=== PATIENT | female | born 1990 | race Caucasian/White ===

== ENCOUNTER 2022-07-24 14:40 | Emergency (ER) | payer BC, SELFPAY ==
--- NOTE | ~2022-07-24 | CT_ITS ---
EXAMINATION: CT abdomen pelvis w con DATE: 07/24/2022 16:07 INDICATION: Right upper quadrant abdominal pain radiating to back TECHNIQUE: Computed tomography (CT) of the abdomen and pelvis was performed with 100 CC Omnipaque 350 intravenous contrast. Automated exposure control and iterative reconstruction technique were employe d. Exam dose: 322.65 mGy-cm total exam DLP. COMPARISON: None. FINDINGS: Normal heart size. No pericardial or pleural effusion. Small sliding hiatal hernia. The liver, gallbladder, bile ducts, spleen, pancreas, pancreatic duct, and adrenal glands are unremar kable. There are approximately 4 right renal probable cysts measuring up to approximately 1 cm maximal dimen bc. 4.7 mm probable left renal cyst. Approximately 3 mm nonobstructing lower pole right renal calculus and 2 mm and a subtle pinpoint nono bstructing lower pole left renal calculi. No ureteral calculus or hydroureteronephrosis. The urinary bladder is unremarkable. Up to approximately 1.5 cm right ovarian cysts, including a 1.2 cm peripherally enhancing right corpu s luteum cyst. The uterus and adnexal areas are otherwise unremarkable. There is moderate hypoattenua tion fluid in the posterior cul-de-sac which may be due to ovarian cyst rupture/hemorrhage. Normal caliber of the abdominal aorta. No intraperitoneal or retroperitoneal or pelvic mass lesion or adenopathy or ascites. Normal appendix. Mild sigmoid and descending colon diverticulosis; no CT evidence of diverticulitis. No bowel obstruction or intraperitoneal free air. No suspicious osteolytic or osteoblastic lesions. Transitional lumbosacral vertebra. IMPRESSION: Normal appendix Mild colonic diverticulosis; no CT evidence of diverticulitis Mild bilateral nonobstructive nephrolithiasis; no ureteral calculus or hydroureteronephrosis Bilateral renal cysts Right ovarian cysts including peripherally enhancing 1.2 cm right corpus luteum cyst. Mild to moderat e high density fluid in the posterior cul-de-sac, likely due to cyst rupture or hemorrhage Reviewed, dictated and finalized at [facility] Reviewed, dictated and finalized at [facility] IMPRESSION: Normal appendix Mild colonic diverticulosis; no CT evidence of diverticulitis Mild bilateral nonobstructive nephrolithiasis; no ureteral calculus or hydroure teronephrosis Bilateral renal cysts Right ovarian cysts including peripherally enhancing 1.2 cm right corpus luteum cyst. Mild to moderate high density fluid in the posterior cul-de-sac, likely due to cyst rupture or hemorrhage
[2022-07-24 14:47] VITALS: BP 121/77; PULSE 79; RESP 16; TEMP 36.2; O2SAT 100
[2022-07-24 15:24] LABS: Basophils Absolute Auto 0.1 K/mm3 (0.0-0.1); Basophils Percent Auto 0.7 % (0.2-1.2); Eosinophils Absolute Auto 0.1 K/mm3 (0-0.3); Eosinophils Percent Auto 1.2 % (0-4.4); Hematocrit 37.6 % (37.0-47.0); Immature Granulocyte Absolute 0.03 K/mm3 (0.00-0.031); Immature Granulocyte Percent A 0.4 % (0-0.5); Lymphocytes Absolute Auto 2.23 K/mm3 (0.9-3.2); Mean Corpuscular HGB Conc 34.6 g/dl (32-36); Mean Corpuscular Hemoglobin 32.5 pg (26-34); Mean Platelet Volume 10.7 fl (7.4-10.4); Monocytes Absolute Auto 0.4 K/mm3 (0.1-0.6); Monocytes Percent Auto 5.1 % (2.6-8.5); Neutrophils Absolute Auto 4.9 K/mm3 (1.3-6.7); Neutrophils Percent Auto 63.6 % (45.5-73.1); Platelet Count Result 218 k/mm3 (150-375); Red Cell Distribution Width 12.1 % (11.5-14.5); White Blood Count 7.7 K/mm3 (4.5-10.0)
[2022-07-24 15:32] LABS: Alanine Aminotransferase 18 U/L (6-35); Albumin Level 4.5 g/dL (3.5-5.1); Alkaline Phosphatase 57 U/L (38-126); Anion Gap 8 mmol/L (8-16); Aspartate Amino Transferase 19 U/L (14-36); Bilirubin,Total 0.6 mg/dL (0.2-1.3); Blood Urea Nitrogen 14 mg/dL (7-17); Calcium 8.9 mg/dL (8.4-10.2); Carbon Dioxide 19 mmol/L (22-30); Chloride 109 mmol/L (98-107); Estimated CRCL calculation 64 ml/min; Estimated Glomerular Filt Rate > 60; Glucose 82 mg/dL (65-110); Lipase 96 U/L (23-300); Potassium 3.9 mmol/L (3.4-5.0); Sodium 136 mmol/L (137-145)
[2022-07-24 15:34] LABS: Appearance Urine Slightly Cloudy (Clear); Bilirubin Urine Negative (Negative); Blood Urine Negative (Negative); Color Urine Yellow (Yellow); Glucose Urine UA Negative (Negative); Ketones Urine Negative (Negative); Leukocyte Esterase Ur Trace LEU/UL (Negative); Nitrate Urine Negative (Negative); Protein Urine Negative (Negative); Specific Grav Ur 1.025 (1.001-1.035); pH Urine 6.5 (5.0-9.0)
[2022-07-24] MEDS: HYDROmorphone HCL INJ (*CRX) 1 MG/ML SYR IV PUSH (15:37)
[2022-07-24] MEDS: ONDANSETRON INJ 4 MG/2 ML VIAL IV PUSH (15:37)
--- NOTE | 2022-07-24 15:53 | ED.GENADULT ---
HPI - General Adult General Chief complaint: Back Pain/Injury Stated complaint: back pain Time Seen by Provider: 07/24/22 15:18 History of Present Illness HPI narrative: 31-year-old female presents to the emergency room for evaluation of right upper quadrant/right flank pain intermittently for 3 weeks. Patient states a week ago she was seen at an outside emergency room and was told she had multiple nonobstructing kidney stones. Patient continues to experience pain associated with nausea. Denies any dysuria. Denies fevers. Patient states her family has a history of gallbladder disease Related Data Allergies Allergy/AdvReac Type Severity Reaction Status Date / Time codeine AdvReac Itching Verified 07/24/22 15:13 metoclopramide [From Reglan] AdvReac Nausea and Verified 07/24/22 15:13 Vomiting Sulfa (Sulfonamide AdvReac Rash Verified 07/24/22 15:13 Antibiotics) Review of Systems Review of Systems: CONSTITUTIONAL: Denies fever, chills, or sweats. EYES: Denies visual changes, redness, or discharge. ENT: Denies rhinorrhea, congestion, sore throat, or otalgia. CARDIOVASCULAR: Denies chest pain, palpitations, or edema. RESPIRATORY: Denies cough or dyspnea. GASTROINTESTINAL: Reports abdominal pain, nausea GENITOURINARY: Denies dysuria or hematuria. SKIN: Denies rash or itching. MUSCULOSKELETAL: Denies back pain, joint pain, or myalgia. NEUROLOGIC: Denies headache, numbness, dizziness, or weakness. PSYCHIATRIC: Denies anxiety or depression. Exam Narrative: GENERAL: Well-appearing, well-nourished, no physical limitations, and in no acute distress. HEAD: Normocephalic, atraumatic. EYES: Conjunctivae normal, PERRLA and EOMI. CHEST: Clear to auscultation. No respiratory distress. No wheezes rales or rhonchi. HEART: Regular rate and rhythm. No murmur heard. Normal peripheral pulses. ABDOMEN: Soft, RUQ tenderness, nondistended, normal active bowel sounds. BACK: right CVA tenderness; EXTREMITIES: Normal range of motion. No edema. No clubbing or cyanosis SKIN: Warm, dry, no rash. No noted wounds NEURO: No focal deficits. Alert and oriented x3. MAEW. CN's II-XI intact bilaterally, normal gait PSYCH: Cooperative. Normal mood and affect. Course Vital Signs Vital signs: Vital Signs Temperature 36.2 C L 07/24/22 14:47 Pulse Rate 79 07/24/22 14:47 Respiratory Rate 16 07/24/22 14:47 Blood Pressure 121/77 07/24/22 14:47 Pulse Oximetry 100 07/24/22 14:47 Oxygen Delivery Room Air 07/24/22 14:47 Temperature 36.2 C L 07/24/22 14:47 Pulse Rate 79 07/24/22 14:47 Respiratory Rate 16 07/24/22 14:47 Blood Pressure 121/77 07/24/22 14:47 Pulse Oximetry 100 07/24/22 14:47 Oxygen Delivery Room Air 07/24/22 14:47 Medical Decision Making MDM Narrative Medical decision making narrative: 31-year-old female presented to the emergency room complaints of right flank and right upper quadrant pain intermittently for 12 days. Patient has been seen at [place] emergency room 5 days ago for rule out kidney stone, CT was found to be negative. And showed no signs of peritonitis. Lab work was largely unremarkable. Urine showed no signs of infection. CT with contrast shows multiple ovarian cysts, with a concern for a recent rupture of another. This could be the cause of the patient's discomfort. Will have patient follow-up with [employer], and will encourage her to continue taking her anti-inflammatories. Patient is Vital Signs Vital Signs: Vital Signs Temperature 36.2 C L 07/24/22 14:47 Pulse Rate 79 07/24/22 14:47 Respiratory Rate 16 07/24/22 14:47 Blood Pressure 121/77 07/24/22 14:47 Pulse Oximetry 100 07/24/22 14:47 Oxygen Delivery Room Air 07/24/22 14:47 Temperature 36.2 C L 07/24/22 14:47 Pulse Rate 79 07/24/22 14:47 Respiratory Rate 16 07/24/22 14:47 Blood Pressure 121/77 07/24/22 14:47 Pulse Oximetry 100 07/24/22 14:47 Oxygen Delivery Room Air 07/24/22 14
[2022-07-24 15:56] LABS: Bacteria Urine Trace /hpf; Mucus Urine Moderate /lpf; Squamous Epithelial Cell Urine Moderate /hpf (Few)
[2022-07-24 15:59] LABS: Add Urine Microscopic? YES
== END 2022-07-24 17:32 | disposition home or self-care (01) ==
PROVIDERS: Emergency Medicine; Emergency Provider Nurse Practitioner Family
DX: N83.11 Corpus luteum cyst of right ovary (principal); N20.0 Calculus of kidney
CPT/HCPCS: 36415; 74177; 80053; 81001; 81025; 83690; 85025; 87086; 87088; 96374; 96375; 99284; J1170; J2405; Q9967

== ENCOUNTER 2022-10-11 12:13 | Outpatient (CLI) | payer BC, SELFPAY | END 2022-10-11 12:14 | disposition home or self-care (01) | PROVIDERS: PCP Emergency Medicine; Visit Provider Obstetrics & Gynecology | DX: N80.9 Endometriosis, unspecified (principal); Z01.818 Encounter for other preprocedural examination | CPT/HCPCS: 36415; 86850; 86900; 86901 ==

== ENCOUNTER 2022-10-18 00:13 | Day surgery (SDC) | payer BC, SELFPAY ==
--- NOTE | 2022-10-09 09:57 | SUR.PREOP ---
Report to the Outpatient Waiting Room, entrance under the green pavilion located off [facility], at time 0600 on date 10/18/22. Planned Procedure Time: 0730. Time changes happen often and if your time is changed the preop area will call you the afternoon before. - You and your visitor will be asked to self-screen and do not enter if you have any COVID symptoms. - Only one visitor is requested with a max of two and NO children visitors are allowed at this time. - The patient visitor may be requested to leave or wait in car when not with patient due to distancing restrictions. - A mask is optional within the hospital at this time. Patients may have clear liquids (water, carbonated beverages, clear teas, apple juice) until 3 hours prior to surgery with a maximum of 20 ounces. - NO CLEAR LIQUIDS AFTER 0430 - No food from midnight until time of surgery - Infants may have breast milk until 4 hours before surgery, infant formula 6 hours prior to surgery. - Children will be allowed to drink immediately following surgery. If applicable, please bring a bottle or sippy cup to assist with drinking. Juice, water, soda, and popsicles are readily available. For infants on formula, please bring formula the day of surgery. Pacifiers are allowed. Take the following medications with a SIP of water the morning of surgery: TOPIRAMATE, BUPROPION, ALPRAZOLAM, NAPROXEN, ACETAMINOPHEN, ZOFRAN, & HYDROCODONE DO NOT STOP ANY OF YOUR OTHER PRESCRIPTION MEDICATIONS PRIOR TO SURGERY ?EXCEPT THE FOLLOWING Medications to discontinue per physician N/A Date to take last dose N/A Please no make-up, nail indonesian, hairspray, perfume, deodorant, or body powder the day of surgery. No jewelry (including any body piercings) or valuables the day of surgery, leave them at home. Please take a shower or bath the night before, or the morning of, surgery with an antibacterial soap. Wear comfortable, loose fitting clothing. Children are encouraged to wear pajamas. - Jewelry must be removed prior to entering the operating room. Rings and piercings that are not removed may be cut off. - The hospital will not accept responsibility for valuables. - Please leave all valuables, including medications, at home the day of surgery. If you are going home after surgery, a licensed class a regional drivers must drive you home. - NO public transportation without another adult if you receive anesthesia. - We recommend that an adult stay with you for 24 hours following discharge. - We also recommend that you do not drive, make important decision, drink alcoholic beverages, or take any drugs that were not prescribed by your health care provider for at least 24 hours after your discharge time. For Pediatric surgeries, we recommend two adults accompany the child home. Follow any additional instructions given to you from your surgeon. If you or anyone in your household have experienced Covid symptoms in the past week, please notify your surgeon or the nurse liaison at the phone number below for possible testing. Telephone instructions given to YINA GROVES and asked if any additional questions and then verbalized understanding. Patient advised to call surgeon office or pre surgery nurse liaison [phone] if any additional questions.
[2022-10-09 10:11] VITALS: BMI 28.8
[2022-10-18] VITALS (10 sets, daily range): BP systolic 84–117; BP diastolic 53–79; PULSE 60–81; RESP 12–22; TEMP 36.2–36.9; O2SAT 98–100
[2022-10-18] MEDS: ACETAMINOPHEN 500 MG TABLET 1000 MG PO (06:29)
[2022-10-18] MEDS: LACTATED RINGERS 1,000 ML 30 ML IV CONT ×2 (06:40→09:30)
--- NOTE | 2022-10-18 07:10 | P.PNAN_ITS ---
Anes - Initial Pre Proc Eval Procedure: Operation Date: 10/18/22 07:30 Proposed Procedures p Robotic Assisted Hysterectomy with Bilateral Salpingectomy - Twan Carrington MD Date/Time: 10/18/22 07:10 Surgeon: Twan Carrington MD Pre Op Diagnosis: endometriosis of pelvis Patient Data Age: 32 Gender: F Height: 1.52 m Weight: 66 kg Last Vital Signs Temp 97.7 F 10/18/22 06:45 Pulse 78 10/18/22 06:45 Resp 16 10/18/22 06:45 BP 96/60 L 10/18/22 06:45 Pulse Ox 100 10/18/22 06:45 O2 Del Method Room Air 10/18/22 06:45 Allergies Allergy/AdvReac Type Severity Reaction Status Date / Time adhesive Allergy Rash Verified 10/18/22 06:14 codeine Allergy Itching Verified 10/18/22 06:14 metoclopramide [From Reglan] Allergy Nausea and Verified 10/18/22 06:14 Vomiting Sulfa (Sulfonamide Allergy Rash Verified 10/18/22 06:14 Antibiotics) Home Medications Medication Instructions Recorded Confirmed Type acetaminophen 325 mg tablet 650 mg PO ONCE PRN Pain 10/09/22 10/18/22 History alprazolam 1 mg tablet 1 mg BID PRN Anxiety 10/09/22 10/18/22 History bupropion HCl 150 mg tablet,12 hr 150 mg PO BID 10/09/22 10/18/22 History sustained-release naproxen 500 mg tablet 500 mg PO BID PRN Pain 10/09/22 10/18/22 History ondansetron HCl 4 mg tablet 4 mg PO Q6-8H PRN Nausea 10/09/22 10/18/22 History topiramate 100 mg tablet 100 mg PO TID 10/09/22 10/18/22 History Patient hx anesthesia problems: none Family hx anesthesia problems: none Results Review: All pre-operative results and documents have been reviewed as part of the pre- operative evaluation. [facility] Social History Social History Smoking status: Never smoker Living arrangements: with family Spiritual care concerns: No Anes - Eval Final PreProcedure Day of Procedure 10/18/22 07:10 Patient weight: normal Heart: regular rate and rhythm Lungs: clear to auscultation Airway: Mallampati scale class II Neurological: alert and oriented Last oral intake: >/= 8 hours ASA classification: II Emergent: no Anesthetic plan: proceed Anesthesia type and monitoring: general ETT and standard monitoring Results Review: All pre-operative results and documents have been reviewed as part of the pre- operative evaluation. Informed Consent: The patient's anesthetic plan and its attendant risks and benefits were discussed with the patient/family/POA. Questions were solicited and answers provided to the satisfaction of the patient/family/POA.
--- NOTE | 2022-10-18 07:13 | WPDHPUPDATE1 ---
History and Physical Update Update Date/Time: 10/18/22 07:13 History and Physical has been reviewed, including an updated exam of the patient. There are NO changes in the patient's condition. Risks, benefits, and alternatives have been discussed and questions answered. Patient agrees to proceed with procedure.
[2022-10-18] MEDS: ceFAZolin 2 GM/D5W 50 ML 2 GM/50 ML BAG IVPB (07:25)
[2022-10-18] MEDS: fentaNYL CITRATE INJ (*CRX) 100 MCG/2 ML VIAL 25 MCG IV PUSH ×2 (10:22→10:26)
[2022-10-18] MEDS: DEXTROSE 5%/0.45% SOD CHL 1,000 ML 125 ML IV CONT (11:35)
[2022-10-18] MEDS: KETOROLAC 30 MG/ML VIAL (*BKC) IV PUSH (14:40)
[2022-10-18] MEDS: HYDROcodone/acetaminophen (*CRX) 10-325 MG TABLET 1 TAB PO ×2 (17:51→20:20)
--- NOTE | 2022-10-18 19:06 | OBPPTRN ---
1113 Patient transferred to post room #276 via bed. Support person present. Oriented to unit, room, information board, admission packet and security measures. Patient verbalizes understanding.
[2022-10-18] MEDS: IBUPROFEN 600 MG TABLET PO (20:20)
[2022-10-18] MEDS: SIMETHICONE 80 MG TAB.CHEW (20:23)
[2022-10-19] MEDS: HYDROcodone/acetaminophen (*CRX) 10-325 MG TABLET 1 TAB PO ×2 (05:20→08:46)
[2022-10-19] MEDS: IBUPROFEN 600 MG TABLET PO ×2 (05:20→13:03)
[2022-10-19 08:45] VITALS: BP 98/62; PULSE 73; RESP 16; TEMP 36.8; O2SAT 98
[2022-10-19] MEDS: SIMETHICONE 80 MG TAB.CHEW PO (08:49)
--- NOTE | 2022-10-19 12:57 | PM.GYNPNOP ---
[employer] - A/P Postoperative Procedures: Procedures Operation Date: 10/18/22 07:30 Actual Procedure Side Surgeon p Robotic Assisted Hysterectomy with Bilateral Salpingectomy Bilateral Twan Carrington MD Postoperative day: 1 Postoperative status: doing well Postoperative plan: see orders Time Spent With Patient Time: Total time spent is greater than 50% in coordination of care (as documented) at patient's floor/unit and/or counseling patient: Time with patient: less than 15 minutes [employer]- PN:Subj Post-Op Subjective Date/time seen: 10/19/22 12:57 Subjective: patient reports feeling better, patient has no complaints and pain is well controlled Exam Const: General: healthy appearing, comfortable and no acute distress Resp: Auscultation: clear to auscultation bilaterally, no rales, no rhonchi and no wheezes Cardio: Rate: regular rate Heart sounds: no click, no murmurs and no rubs GI: Inspection: non-distended Auscultation: normal bowel sounds Extrem: General: normal to inspection, no pedal edema and no calf tenderness [employer] - PN: Obj Data Vital Signs Vital Signs: Vital Signs - 24 hr 10/18/22 19:18 10/18/22 19:18 10/18/22 20:15 Temperature 98.3 F 98.5 F Pulse Rate 80 81 Respiratory Rate 16 18 Blood Pressure 117/79 97/62 L Pulse Oximetry 100 Oxygen Delivery Room Air 10/19/22 08:45 10/19/22 08:45 Temperature 98.3 F Pulse Rate 73 73 Respiratory Rate 16 16 Blood Pressure 98/62 L Pulse Oximetry 98 98 Oxygen Delivery Room Air Intake/Output Intake/Output: Intake & Output 10/16/22 10/17/22 10/18/22 10/19/22 23:59 23:59 23:59 23:59 Intake Total 3920 400 Output Total 2000 Balance 1920 400 Meds/Results Medications: Active Medications Generic Name Dose Route Start Last Admin Trade Name Freq PRN Reason Stop Dose Admin Acetaminophen 650 mg 10/18/22 11:07 Acetaminophen 325 Mg Tablet PO ONCE PRN Pain Hydrocodone Bitart/Acetaminophen 1 tab 10/18/22 11:07 Hydrocodone/Acetaminophen (*Crx) 5-325 Mg Tablet PO Q3H PRN Pain Rated 5 or Less Hydrocodone Bitart/Acetaminophen 1 tab 10/18/22 11:07 10/19/22 08:46 Hydrocodone/Acetaminophen (*Crx) 10-325 Mg Tablet PO 1 tab Q3H PRN Administration Pain Rated 6 or Greater Alprazolam 1 mg 10/18/22 11:07 Alprazolam (*Crx) 0.5 Mg Tablet BY MOUTH BID PRN Anxiety Bupropion HCl 150 mg 10/18/22 21:00 10/19/22 10:40 Bupropion Hcl Sr (12 Hr) 150 Mg Tab PO Not Given Q12HR MORGAN Ibuprofen 600 mg 10/18/22 11:07 10/19/22 05:20 Ibuprofen 600 Mg Tablet PO 600 mg Q6H PRN Administration Cramping Ketorolac Tromethamine 30 mg 10/18/22 11:07 10/18/22 14:40 Ketorolac 30 Mg/Ml Vial (*Bkc) IV PUSH 10/23/22 11:06 30 mg Q6H PRN Administration Pain Rated 4-6 Naloxone HCl 0.1 mg 10/18/22 11:07 Naloxone Hcl 0.4 Mg/Ml Vial IV PUSH Q2M PRN Respiratory rate less than 10 Ondansetron HCl 4 mg 10/18/22 11:07 Ondansetron Hcl Odt 4 Mg Tablet PO Q6-8H PRN Nausea Ondansetron HCl 4 mg 10/18/22 11:07 Ondansetron Inj 4 Mg/2 Ml Vial IV PUSH Q6H PRN Nausea And Vomiting Simethicone 80 mg 10/18/22 21:45 10/19/22 08:49 Simethicone 80 Mg Tab.Chew PO 80 mg Q2HR PRN Administration Gas Discomfort Topiramate 100 mg 10/18/22 14:00 10/19/22 08:54 Topiramate 100 Mg Tablet PO Not Given Q8HR MORGAN
[2022-10-19] MEDS: HYDROcodone/acetaminophen (*CRX) 5-325 MG TABLET 1 TAB PO (13:03)
--- NOTE | 2022-10-22 21:52 | W.PM.PROC2 ---
Procedure Note - Detailed Date of Procedure 10/22/22 Pre-op Diagnosis endometriosis of pelvis Post-op Diagnosis Same Procedure Performed Robot assisted Total hysterectomy with bilateral salpingectomy. Surgeon Twan Carrington MD Anesthesia General Indications heavy vaginal bleeding, pelvic pain Findings normal-appearing uterus, ovaries, and left tube, right tube was partially resected. Some scarring over the posterior cul-de-sac peritoneum. Description of Procedure This patient was taken to the operating room. She was prepped and draped in the dorsal lithotomy position after induction of general anesthesia. The uterine manipulator and Sawyer cup were placed. This was done with a speculum and tenaculum. The speculum was placed. The cervix was grasped with a tenaculum. The stay sutures were placed at 3 and 9:00 a.m.. The stay sutures of 0 Vicryl were tied to the appropriately Size scope after it was slipped around the cervix.. The tip of the HALEY manipulator was placed in the intrauterine cavity. The cup was slid into place around the cervix and into the fornices. It was locked into place. The sutures were then wrapped around the handle and tied under tension. A 8 mm skin incision was made in the left upper quadrant the abdomen. a 5 mm Visiport trocar was inserted into abdominal cavity and pneumoperitoneum was achieved. A 8 mm supraumbilical incision was made and a 8 mm trocar was inserted into the intrauterine cavity under direct visualization of the scope. an 8 mm incision was made in the right upper quadrant of the abdomen and an 8 mm robotic trocar was placed the inter uterine cavity under direct visualization the scope. An 11 mm trocar was inserted in the right upper quadrant of the abdomen rectal is a cystoscope after an incision was made there as well. The robot was docked. Electronic Orientation of the robot was performed. Bilateral ureteral lysis was performed. This was done from the pelvic brim down to the uterine artery. This was done with careful dissection using sharp and blunt dissection. The fallopian tubes were removed bilaterally. The mesosalpinx around the fallopian tubes were cauterized transected with LigaSure cautery. This was done in a bilateral fashion from the ovary to the uterine cornua. The fallopian tube was transected at the uterine cornu and amputated. The tube was taken out the left lower quadrant trocar site. In a stepwise fashion along the lateral aspects of the uterus the round ligament and broad ligaments were cauterized transected down to the level of the uterine arteries. A bladder flap was created in the bladder was moved distally to the end of the cervix and over the Sawyer cup. The bilateral uterine arteries were cauterized and transected. Colpotomy was then performed. In a circumferential fashion the vagina was transected using unipolar cautery. The incision was made down on the Sawyer cup. The uterus and cervix were taken out through the vagina. A pneumo occluder was placed in the vagina. The vaginal cuff was closed with a 0 V lock suture in a running fashion. The pelvis was irrigated with copious amounts antibiotic irrigation. The ureters were again examined and found to be intact and flowing freely under the uterine arteries into the bladder. The bladder was intact. It was examined directly. The vagina was irrigated with Betadine solution after removal of the Pneumo occluder. the trocars were removed after the robot was undocked. The skin was closed with subacute or Dermabond. The patient was taken to recovery room. She was stable condition. Sponge lap and needle counts were correct x2. Estimated Blood Loss -50.0 Urine Output -50.0 Drains Yes Packing No Pathology Yes Complications No immediate complications Condition Stable Disposition Floor
== END 2022-10-19 13:30 | disposition home or self-care (01) ==
LOC: ANHSURGERY 10:41 → ANHOB2 11:10
PROVIDERS: PCP Emergency Medicine; Visit Provider Obstetrics & Gynecology
PROC: (CPT 58571; principal; 2022-10-18 07:30)
DX: N80.00 Endometriosis of the uterus, unspecified (principal); N80.201 Endometriosis of right fallopian tube, unspecified depth; R10.2 Pelvic and perineal pain
CPT/HCPCS: 58571; S2900; 88307; 99199; A9270; J0690; J1100; J1200; J1885; J2250; J2405; J2704; J2710; J3010; J7030; J7120

== ENCOUNTER 2023-03-12 23:04 | Emergency (ER) | payer BC, SELFPAY ==
--- NOTE | ~2023-03-12 | CT_ITS ---
Non-contrast CT scan of the Abdomen and Pelvis Clinical indication: Left flank pain Technique: 2.5 mm axial scans were obtained through the abdomen and pelvis without intravenous or or al contrast. Dose reduction technique was used on this scan by utilizing automated exposure control a nd iterative reconstruction technique. The dose-length product (DLP) was 527.27 mGy-cm. COMPARISON: 07/24/2022 Findings: Images through the lung bases reveal no abnormalities. There are bilateral nonobstructing renal calculi, largest in the left kidney measuring 5 mm. There is possible minimal fullness the bilateral renal collecting systems, but no nj ureteral dilatation. No ureteral stones seen on either side. The liver, spleen, pancreas, gallbladder, and adrenals appear normal. There is no aortic aneurysm. There is no evidence of bowel obstruction. There is wall thickening and pericolonic inflammatory dhaliwal ge centered about a diverticulum at the proximal sigmoid colon, consistent with acute diverticulitis. No abscess or free air. Images through the pelvis were performed. Urinary bladder unremarkable. No adnexal mass evident. Tra ce pelvic ascites noted. Impression: Acute diverticulitis of the proximal sigmoid colon. No abscess, free air, or bowel obstruction. Bilateral nonobstructing renal calculi, as detailed above. Possible minimal fullness the bilateral re nal collecting systems, but no ureteral stones are seen. Trace pelvic ascites. Reviewed, dictated and finalized at [facility]. Impression: Acute diverticulitis of the proximal sigmoid colon. No abscess, free air, or candice wel obstruction. Bilateral nonobstructing renal calculi, as detailed above. Possible minimal ful lness the bilateral renal collecting systems, but no ureteral stones are seen. Trace pelvic ascites.
[2023-03-12 23:23] VITALS: BP 107/64; PULSE 87; RESP 18; TEMP 36.9; O2SAT 100
[2023-03-13] MEDS: ONDANSETRON INJ 4 MG/2 ML VIAL IV PUSH (00:33)
[2023-03-13] MEDS: SODIUM CHLORIDE 0.9% IV 1,000 ML 999 ML IV CONT (00:33)
[2023-03-13] MEDS: MORPHINE SULFATE (*CRX) 4 MG/ML INJ IV PUSH (00:33)
[2023-03-13 00:41] VITALS: BP 109/64; PULSE 85; RESP 16; O2SAT 98
[2023-03-13 00:47] LABS: Appearance Urine Clear (Clear); Basophils Absolute Auto 0.1 K/mm3 (0.0-0.1); Basophils Percent Auto 0.4 % (0.2-1.2); Bilirubin Urine Negative (Negative); Blood Urine Negative (Negative); Color Urine Yellow (Yellow); Eosinophils Absolute Auto 0.1 K/mm3 (0-0.3); Eosinophils Percent Auto 0.9 % (0-4.4); Glucose Urine UA Negative (Negative); Hematocrit 37.7 % (37.0-47.0); Hemoglobin 12.6 g/dL (12.0-15.0); Immature Granulocyte Absolute 0.06 K/mm3 (0.00-0.031); Immature Granulocyte Percent A 0.4 % (0-0.5); Ketones Urine Trace mg/dL (Negative); Leukocyte Esterase Ur Negative LEU/UL (Negative); Lymphocytes Absolute Auto 1.54 K/mm3 (0.9-3.2); Lymphocytes Percent Auto 11.2 % (18.3-44.2); Mean Corpuscular HGB Conc 33.4 g/dl (32-36); Mean Corpuscular Hemoglobin 32.6 pg (26-34); Mean Corpuscular Volume 97.4 fl (80-100); Mean Platelet Volume 11.2 fl (7.4-10.4); Neutrophils Percent Auto 80.1 % (45.5-73.1); Nitrate Urine Negative (Negative); Platelet Count Result 221 k/mm3 (150-375); Protein Urine Negative (Negative); Red Blood Count 3.87 M/mm3 (4.2-5.4); Red Cell Distribution Width 12.5 % (11.5-14.5); Specific Grav Ur 1.022 (1.001-1.035); White Blood Count 13.8 K/mm3 (4.5-10.0)
[2023-03-13 00:50] LABS: Add Urine Microscopic? YES
[2023-03-13 00:56] LABS: Alanine Aminotransferase 35 U/L (6-35); Albumin Level 4.2 g/dL (3.5-5.1); Alkaline Phosphatase 73 U/L (38-126); Anion Gap 10 mmol/L (8-16); Aspartate Amino Transferase 24 U/L (14-36); Bilirubin,Total 0.9 mg/dL (0.2-1.3); Blood Urea Nitrogen 15 mg/dL (7-17); Calcium 8.9 mg/dL (8.4-10.2); Carbon Dioxide 19 mmol/L (22-30); Chloride 107 mmol/L (98-107); Estimated CRCL calculation 62 ml/min; Estimated Glomerular Filt Rate > 60; Glucose 97 mg/dL (65-110); Lipase 144 U/L (23-300); Potassium 3.4 mmol/L (3.4-5.0); Sodium 136 mmol/L (137-145)
--- NOTE | 2023-03-13 01:13 | ED.GENADULT ---
HPI - General Adult General Chief complaint: Abdominal Pain Stated complaint: LLQ abd pain Time Seen by Provider: 03/13/23 00:02 History of Present Illness HPI narrative: Patient 32-year-old female who presents the emergency department with chief complaint of left-sided abdominal pain. Patient reports she has prior history of kidney stones and reports that she is also had ovarian cyst before in the past patient states started having pain in the left lower quadrant reports that she is unsure if she has a cyst or stone today the patient reports that she had some nausea reports the pain is not improved by anything the patient denies blood in her urine denies cloudy urine denies fever. Related Data Home Medications Medication Instructions Recorded Confirmed acetaminophen 325 mg tablet 650 mg PO ONCE PRN Pain 10/09/22 10/18/22 alprazolam 1 mg tablet 1 mg BID PRN Anxiety 10/09/22 10/18/22 bupropion HCl 150 mg tablet,12 hr 150 mg PO BID 10/09/22 10/18/22 sustained-release naproxen 500 mg tablet 500 mg PO BID PRN Pain 10/09/22 10/18/22 ondansetron HCl 4 mg tablet 4 mg PO Q6-8H PRN Nausea 10/09/22 10/18/22 topiramate 100 mg tablet 100 mg PO TID 10/09/22 10/18/22 Allergies Allergy/AdvReac Type Severity Reaction Status Date / Time adhesive Allergy Rash Verified 03/12/23 23:51 codeine Allergy Itching Verified 03/12/23 23:51 metoclopramide [From Reglan] Allergy Nausea and Verified 03/12/23 23:51 Vomiting Sulfa (Sulfonamide Allergy Rash Verified 03/12/23 23:51 Antibiotics) Review of Systems Review of Systems: A 10 system review of systems was completed on the patient and is negative except for what is stated in the HPI. Nursing and ancillary documentation was reviewed. [facility] Social History Social History Smoking status: Never smoker Living arrangements: with family Gender identity (if verbalized by the patient): Female Sexual Orientation (if Verbalized by the Patient): Straight or Heterosexual Spiritual care concerns: No Exam Narrative: GENERAL: Well-appearing, well-nourished, and in no acute distress. HEAD: Normocephalic, atraumatic. EYES: PERRLA and EOMI. ENT: Nares clear, no rhinorrhea or epistaxis. Mucous membranes moist. NECK: Supple. CHEST: Clear to auscultation. No respiratory distress. HEART: Regular rate and rhythm. No murmur heard. Normal peripheral pulses. ABDOMEN: Soft, mild tenderness to palpation in the left lower quadrant, nondistended, normal active bowel sounds. EXTREMITIES: Normal range of motion. No edema. SKIN: Warm, dry, no rash. NEURO: No focal deficits. Alert and oriented x3. PSYCH: Normal mood and affect. Course Vital Signs Vital signs: Vital Signs Temperature 36.9 C 03/12/23 23:23 Pulse Rate 87 03/12/23 23:23 Respiratory Rate 18 03/12/23 23:23 Blood Pressure 107/64 03/12/23 23:23 Pulse Oximetry 100 03/12/23 23:23 Oxygen Delivery Room Air 03/12/23 23:23 Temperature 36.6 C 03/13/23 03:07 Pulse Rate 77 03/13/23 03:07 Respiratory Rate 14 03/13/23 03:07 Blood Pressure 102/72 03/13/23 03:07 Pulse Oximetry 99 03/13/23 03:07 Oxygen Delivery Room Air 03/12/23 23:23 Medical Decision Making MDM Narrative Medical decision making narrative: Differential diagnosis includes ureterolithiasis, diverticulitis, bowel obstruction, Laboratory studies were obtained which showed a white blood cell count of 13.8 electrolytes showed no acute abnormality liver enzymes are normal lipase was normal urinalysis was normal. CT scan showed evidence of diverticulitis Vital Signs Vital Signs: Vital Signs Temperature 36.9 C 03/12/23 23:23 Pulse Rate 87 03/12/23 23:23 Respiratory Rate 18 03/12/23 23:23 Blood Pressure 107/64 03/12/23 23:23 Pulse Oximetry 100 03/12/23 23:23 Oxygen Delivery Room Air 03/12/23 23:23 Temperature 36.6 C
[2023-03-13 01:38] VITALS: BP 104/71; PULSE 73; RESP 18; O2SAT 100
[2023-03-13 03:07] VITALS: BP 102/72; PULSE 77; RESP 14; TEMP 36.6; O2SAT 99
[2023-03-13] MEDS: HYDROcodone/acetaminophen (*CRX) 5-325 MG TABLET 1 TAB PO (04:25)
[2023-03-13] MEDS: AMOXICILLIN/CLAVULANATE K 875-125 MG TAB 1 TABLET PO (04:25)
[2023-03-13 04:30] VITALS: BP 103/67; PULSE 88; RESP 15; TEMP 36.6; O2SAT 97
== END 2023-03-13 04:32 | disposition home or self-care (01) ==
LOC: ANHED 03-13 00:53
PROVIDERS: Emergency Provider Emergency Medicine; PCP Emergency Medicine
DX: K57.92 Diverticulitis of intestine, part unspecified, without perforation or abscess without bleeding (principal)
CPT/HCPCS: 36415; 74176; 80053; 81001; 83690; 85025; 96361; 96374; 96375; 99284; A9270; J2270; J2405; J7030

== ENCOUNTER 2024-05-14 12:52 | Outpatient (CLI) | payer OTHER, SELFPAY ==
--- NOTE | ~2024-05-14 | MMUS_ITS ---
EXAMINATION: MM diagnostic naeem LT w bear, US breast LT limited HISTORY: Left breast lump TECHNIQUE: 3-D tomosynthesis images of the left breast were performed and synthetic 2-D images were g enerated. CAD analysis was submitted and interpreted. High resolution limited left breast ultrasound was performed. COMPARISON: None BREAST PARENCHYMAL COMPOSITION:Not Dense. There are scattered areas of fibroglandular density. FINDINGS: MAMMOGRAPHIC FINDINGS: No parenchymal abnormality left breast seen. No mass lesion or distortion. No suspicious microcalcifi cation seen. ULTRASOUND: No sonographic abnormality seen in the region scanned. No mass lesion or fluid collection seen. IMPRESSION: No evidence of malignancy. No mammographic or sonographic correlate seen at the area of palpable con cern. BI-RADS Category 1: Negative Reviewed, dictated and finalized at [facility]. IMPRESSION: No evidence of malignancy. No mammographic or sonographic correlate seen at th e area of palpable concern. BI-RADS Category 1: Negative
== END 2024-05-14 12:53 | disposition home or self-care (01) ==
LOC: ANHIMG 12:55
PROVIDERS: PCP Emergency Medicine; Visit Provider Obstetrics & Gynecology
DX: N63.20 Unspecified lump in the left breast, unspecified quadrant (principal)
CPT/HCPCS: 76642; 77061; 77065; G0279

== ENCOUNTER 2024-05-14 14:05 | Inpatient (IN) | payer OTHER, SELFPAY ==
--- NOTE | ~2024-05-14 | CT_ITS ---
CT abdomen pelvis w con Ordering provider: Shellie Chang MD History: 33 years Female with . RIGHT ABDOMINAL PAIN . Comparison: March 13, 2023 Technique: CT abdomen and pelvis with IV and without oral contrast. Automated exposure control and it erative reconstruction technique were employed. The dose-length product was 218.52 mGy-cm. 100 mL Omn ipaque 350 was given IV. Findings: VISUALIZED LOWER CHEST: Normal. UPPER ABDOMINAL ORGANS: Liver: Normal. Gallbladder: Distended. No stones. Small hypodensity seen between the liver and the gallbladder wall suggestive of pericholecystic fluid. No inflammatory changes seen around the gallbladder. Clinical co rrelation to evaluate for cholecystitis is advised. Spleen: Normal. Stomach/duodenum: Normal. Pancreas: Normal. Adrenals: Normal. Kidneys: Tiny cyst in the left kidney midpole. Small cysts in the right kidney midpole. PELVIC ORGANS: The bladder is normal. BOWEL AND MESENTERY: Colon: No evidence of diverticulitis. Fecal material in the right side of the colon which may indicat e constipation. Normal appendix. Small Bowel: Normal. No obstruction. Peritoneum/mesentery: No free air or free fluid. No mesenteric lymphadenopathy. RETROPERITONEUM: Normal aorta. No retroperitoneal lymphadenopathy. MUSCULOSKELETAL: Superficial soft tissues: The superficial soft tissues are normal. Bones: Normal spine. Bilateral sacroiliacs. IMPRESSION: 1. Minimal pericholecystic fluid which raises the possibility of cholecystitis. Clinical correlation advised. 2. No evidence of appendicitis, diverticulitis or intestinal obstruction. 3. Constipation. Reviewed, dictated and finalized at location A. IMPRESSION: 1. Minimal pericholecystic fluid which raises the possibility of cholecystitis . Clinical correlation advised. 2. No evidence of appendicitis, diverticulitis or intestinal obstruction. 3. Constipation.
[2024-05-14 14:08] VITALS: BP 105/64; PULSE 64; RESP 14; TEMP 36.9; O2SAT 100
[2024-05-14 14:55] LABS: Basophils Percent Auto 0.4 % (0.2-1.2); Eosinophils Absolute Auto 0.2 K/mm3 (0-0.3); Eosinophils Percent Auto 1.6 % (0-4.4); Hematocrit 38.7 % (37.0-47.0); Hemoglobin 12.8 g/dL (12.0-15.0); Immature Granulocyte Absolute 0.03 K/mm3 (0.00-0.031); Immature Granulocyte Percent A 0.3 % (0-0.5); Lymphocytes Absolute Auto 1.86 K/mm3 (0.9-3.2); Mean Corpuscular HGB Conc 33.1 g/dl (32-36); Mean Corpuscular Hemoglobin 32.8 pg (26-34); Mean Corpuscular Volume 99.2 fl (80-100); Mean Platelet Volume 10.9 fl (7.4-10.4); Monocytes Absolute Auto 0.5 K/mm3 (0.1-0.6); Monocytes Percent Auto 4.8 % (2.6-8.5); Neutrophils Absolute Auto 6.8 K/mm3 (1.3-6.7); Neutrophils Percent Auto 72.9 % (45.5-73.1); Platelet Count Result 217 k/mm3 (150-375); Red Cell Distribution Width 12.9 % (11.5-14.5); White Blood Count 9.3 K/mm3 (4.5-10.0)
[2024-05-14 15:16] LABS: Alanine Aminotransferase 146 U/L (6-35); Albumin Level 4.5 g/dL (3.5-5.1); Alkaline Phosphatase 93 U/L (38-126); Anion Gap 8 mmol/L (4-12); Aspartate Amino Transferase 278 U/L (14-36); Bilirubin,Total 0.7 mg/dL (0.2-1.3); Blood Urea Nitrogen 11 mg/dL (7-17); Carbon Dioxide 25 mmol/L (22-30); Chloride 108 mmol/L (98-107); Estimated CRCL calculation 54 ml/min; Estimated Glomerular Filt Rate > 60; Glucose 75 mg/dL (65-110); Potassium 3.4 mmol/L (3.4-5.0); Sodium 141 mmol/L (137-145)
--- NOTE | 2024-05-14 15:56 | ED.ABDPAIN ---
HPI - Abdominal Pain General Chief Complaint: Abdominal Pain Stated Complaint: right flank pain Time Seen by Provider: 05/14/24 15:56 Source: patient Mode of arrival: ambulatory Limitations: no limitations History of Present Illness HPI narrative: 33 YEARS OLD WHITE FEMALE CAME TO THE ED BY PRIVATE CAR WITH HER COMPLAINING OF RIGHT UPPER QUADRANT PAIN, SHARP, RADIATING TO THE BACK STARTED 2 DAYS AGO. NOTHING MAKE IT WORSE, GETS BETTER SOMETIME WITH HOT PATH, TODAY ASSOCIATED WITH NAUSEA, SHE DENIES ANY FEVER OR CHILLS. HISTORY OF MIGRAINE HEADACHE, DEPRESSION, HYSTERECTOMY SECONDARY TO ENDOMETRIOSIS. LAST MEAL WAS THIS MORNING. Related Data Home Medications Medication Instructions Recorded Confirmed acetaminophen 325 mg tablet 650 mg PO DAILY PRN Pain 10/09/22 05/14/24 alprazolam 1 mg tablet 1 mg BID PRN Anxiety 10/09/22 05/14/24 naproxen 500 mg tablet 500 mg PO BID PRN Pain 10/09/22 05/14/24 ondansetron HCl 4 mg tablet 4 mg PO Q6-8H PRN Nausea 10/09/22 05/14/24 topiramate 100 mg tablet 100 mg PO TID 10/09/22 05/14/24 venlafaxine 1 tablet PO HS 05/14/24 05/14/24 Allergies Allergy/AdvReac Type Severity Reaction Status Date / Time adhesive Allergy Rash Verified 03/12/23 23:51 codeine Allergy Itching Verified 03/12/23 23:51 metoclopramide [From Reglan] Allergy Nausea and Verified 03/12/23 23:51 Vomiting Sulfa (Sulfonamide Allergy Rash Verified 03/12/23 23:51 Antibiotics) Review of Systems Review of Systems: All systems reviewed & are unremarkable except as noted in HPI and below PMFSH Social History Social History Smoking status: Never smoker Alcohol intake: never Substance use: never Substance use type: does not use Do You Feel Safe in your Home?: Yes Lack of Transportation: No Lack of Food: Never True Current Housing: I Have Housing Concerned About Future Housing: No Difficulty Paying Gas/Electric Bills: No Difficulty Paying for Meds: No Currently Unemployed: No Education: High School Diploma/GED Difficulty w/ Childcare or Family Care: No Living arrangements: with family Gender identity (if verbalized by the patient): Female Sexual Orientation (if Verbalized by the Patient): Straight or Heterosexual Spiritual care concerns: No Exam Narrative: GENERAL APPEARANCE: WELL-DEVELOPED, WELL-NOURISHED SKIN: NORMAL COLOR HEAD: NORMOCEPHALIC, NONTRAUMATIC EYES: CLEAR CONJUNCTIVA ENT: OROPHARYNX NORMAL, EARS NORMAL, NOSE NORMAL NECK: SUPPLE, NONTENDER CHEST AND RESPIRATORY: AIRWAY PATENT, NO RESPIRATORY DISTRESS, NO ACCESSORY MUSCLE USE HEART: REGULAR RATE/RHYTHM ABDOMEN: SOFT, SEVERE TENDERNESS RIGHT UPPER QUADRANT, EPIGASTRIC, POSITIVE HUGO SIGN VASCULAR: NORMAL PERIPHERAL PULSES, NORMAL CAPILLARY REFILL. MUSCULOSKELETAL: NORMAL RANGE OF MOTION, NONTENDER BACK NEUROLOGIC: ALERT AND ORIENTED ?3, SONOGRAM TECHNICIAN IS NORMAL TESTED, NO GROSS MOTOR DEFICIT Course Consultations Consultation #1: DR. LOERA Date: 05/14/24 Time: 17:41 Vital Signs Vital signs: Vital Signs Temperature 36.9 C 05/14/24 14:08 Pulse Rate 64 05/14/24 14:08 Respiratory Rate 14 05/14/24 14:08 Blood Pressure 105/64 05/14/24 14:08 Pulse Oximetry 100 05/14/24 14:08 Oxygen Delivery Room Air 05/14/24 14:08 Temperature 36.9 C 05/15/24 15:26 Pulse Rate 84 05/15/24 15:26 Respiratory Rate 18 05/15/24 15:26 Blood Pressure 104/71 05/15/24 15:26 Pulse Oximetry 98 05/15/24 15:26 Oxygen Delivery Room Air 05/15/24 10:35 Oxygen Flow Rate 8 05/15/24 09:50 MDM - Abdominal Pain MDM Narrative Medical decision making narrative: PATIENT CAME TO THE ED WITH RIGHT UPPER QUADRANT PAIN VITAL SIGNS ARE STABLE PHYSICAL EXAMINATION CONSISTENT WITH TENDERNESS AND POSITIVE HUGO SIGN AND RIGHT UPPER QUADRANT DIFFERENTIAL DIAGNOSIS CHOLECYSTITIS, COLITIS, DIVERTICULITIS, URINARY TRACT INFECTION, PANCREATITIS BLOOD WORKUP TODAY SHOWED WBC 9.3, AST 278 ALT 146, ALKALINE PHOSPHATASE 93, LIPASE 250, TOTAL BILIRUBIN 0.7 CT ABDOMEN AND PELVIS WITH IV CONTRAST SHOWED FINDING CONSISTENT WITH ACUTE CHOLECYSTITIS DR. LOERA CONSULTED Differential Diagnosis Differential diagnosis: Likely other ( ABOVE) Medical Records Attestation: I reviewed the patient's medical records. Lab Data Attestation: I reviewed the patient's lab results. 05/15/24 06:02 05/15/24 06:02 Labs: Lab Results 05/14/24 05/15/24 Range/Units 14:47 06:02 WBC 9.3 4.9 (4.5-10.0) K/mm3 RBC 3.90 L 3.10 L (4.2-5.4) M/mm3 Hgb 12.8 10.3 L (12.0-15.0) g/dL Hct 38.7 31.2 L (37.0-47.0) % MCV 99.2 100.6 H (80-100) fl MCH 32.8 33.2 (26-34) pg MCHC 33.1 33.0 (32-36) g/dl RDW 12.9 13.0 (11.5-14.5) % Plt Count 217 166 (150-375) k/mm3 MPV 10.9 H 11.5 H (7.4-10.4) fl Immature Gran % (Auto) 0.3 0.4 (0-0.5) % Neut % (Auto) 72.9 51.9 (45.5-73.1) % Lymph % (Auto) 20.0 37.7 (18.3-44.2) % [place] % (Auto) 4.8 5.5 (2.6-8.5) % Eos % (Auto) 1.6 3.7 (0-4.4) % Baso % (Auto) 0.4 0.8 (0.2-1.2) % Lymph # (Auto) 1.86 1.86 (0.9-3.2) K/mm3 [place] # (Auto) 0.5 0.3 (0.1-0.6) K/mm3 Eos # (Auto) 0.2 0.2 (0-0.3) K/mm3 Baso # (Auto) 0.0 0.0 (0.0-0.1) K/mm3 Abs Immat Gran (auto) 0.03 0.02 (0.00-0.031) K/mm3 Absolute Neuts (auto) 6.8 H 2.6 (1.3-6.7) K/mm3 Absolute Nucleated RBC 0.000 0.000 (0.0-0.012) K/mm3 Nucleated RBC % 0.0 0.0 (0.0-0.2) % Sodium 141 142 (137-145) mmol/L Potassium 3.4 3.5 (3.4-5.0) mmol/L Chloride 108 H 113 H (98-107) mmol/L Carbon Dioxide 25 21 L (22-30) mmol/L Anion Gap 8 8 (4-12) mmol/L BUN 11 8 (7-17) mg/dL Creatinine 1.00 0.90 (0.7-1.0) mg/dL Estim Creat Clear Calc 54 59 ml/min Estimated GFR > 60 > 60 (59 - ) Glucose 75 74 (65-110) mg/dL Calcium 9.0 7.9 L (8.4-10.2) mg/dL Total Bilirubin 0.7 0.3 (0.2-1.3) mg/dL AST 278 H 78 H (14-36) U/L ALT 146 H 79 H (6-35) U/L Alkaline Phosphatase 93 67 (38-126) U/L Total Protein 8.0 6.0 L (6.3-8.2) g/dL Albumin 4.5 3.0 L (3.5-5.1) g/dL Lipase 250 (23-300) U/L Urine Color Yellow (Yellow) Urine Appearance Clear (Clear) Urine pH 5.5 (5.0-9.0) Ur Specific [place] 1.022 (1.001-1.035) Urine Protein Negative (Negative) mg/dL Urine Glucose (UA) Negative (Negative) mg/dL Urine Ketones Negative (Negative) mg/dL Ur Blood (Man) Negative (Negative) Urine Nitrate Negative (Negative) Urine Bilirubin Negative (Negative) Urine Urobilinogen 1.0 (<2.0) mg/dL Leukocyte Esterase Rfl Trace H (Negative) DEMETRIUS/UL Urine RBC 3-5 H (0-2) /hpf Urine WBC 0-5 (0-3) /hpf Ur Squamous Epith Cells None seen (Few) /hpf Urine Bacteria None seen /hpf Urine Casts 0-2 Urine Test Negative Blood Type O Positive Antibody Screen Negative Imaging Data Radiologist's impression: ITS Impressions Abdomen/Pelvis CT 05/14/24 17:00 IMPRESSION: 1. Minimal pericholecystic fluid which raises the possibility of cholecystitis. Clinical correlation advised. 2. No evidence of appendicitis, diverticulitis or intestinal obstruction. 3. Constipation. Critical Care Time Critical Care Time Critical Care Time: No Discharge Plan Discharge Clinical Impression: Acute cholecystitis Patient Disposition: Still a Patient Condition: Stable
[2024-05-14] MEDS: HYDROmorphone HCL INJ (*CRX) 1 MG/ML SYR 0.5 MG IV PUSH ×2 (16:08→18:08)
[2024-05-14] MEDS: SODIUM CHLORIDE 0.9% IV 1,000 ML 999 ML IV CONT (16:08)
[2024-05-14] MEDS: ONDANSETRON INJ 4 MG/2 ML VIAL IV PUSH (16:08)
[2024-05-14 16:13] LABS: Add Urine Microscopic? YES; Appearance Urine Clear (Clear); Bacteria Urine None Seen /hpf; Bilirubin Urine Negative (Negative); Blood Urine Negative (Negative); Color Urine Yellow (Yellow); Glucose Urine UA Negative (Negative); Ketones Urine Negative (Negative); Leukocyte Esterase Ur Trace LEU/UL (Negative); Nitrate Urine Negative (Negative); Non Pathogenic Casts 0-2; Protein Urine Negative (Negative); Specific Grav Ur 1.022 (1.001-1.035); Squamous Epithelial Cell Urine None Seen /hpf (Few); WBC Urine 0-5 /hpf (0-3); pH Urine 5.5 (5.0-9.0)
[2024-05-14 16:16] LABS: Pregnancy On Board Control Positive; Urine Pregnancy Test Negative
[2024-05-14 16:46] LABS: Lipase 250 U/L (23-300)
[2024-05-14] MEDS: PIPERACILLN/TAZ 3.375GM/NS50ML 3.375 GM/50 ML BAG IVPB ×2 (18:21→23:58)
[2024-05-14] MEDS: SODIUM CHLORIDE 0.9% IV 1,000 ML 150 ML IV CONT (19:48)
--- NOTE | 2024-05-14 19:57 | PC.NURSE ---
RN called report at this time. Surgeon in talking with patient. Will send patient to 3rd floor when complete.
--- NOTE | 2024-05-14 20:09 | PM.IMHP ---
H&P: HPI History of Present Illness Date/Time: 05/14/24 20:09 Chief Complaint: Acute cholecystitis secondary to cholelithiasis Narrative: Patient is a 83-year-old white female presented to the emergency with about a 2 day history of worsening right-sided abdominal pain. She initially thought she might be passing another kidney stone has had a prior history of kidney stones and sees Dr. Rivero here at [facility]. This time her pain was seemed to be higher underneath her right ribs and so she presented to the emergency room. Upon further evaluation resume she was unable normal white blood cell count but her liver enzymes were slightly elevated. Total bilirubin however was normal. CT scan abdomen pelvis is then performed showing a dilated and inflamed gallbladder with gallstones noted. There was edema of the gallbladder wall and on examination her pain was consistent with acute cholecystitis. Prior abdominal surgery history includes previous laparoscopic assisted vaginal hysterectomy as well as a prior . She has also had endometrial ablation laparoscopically. Review of Systems Review of Systems: The remainder of the review of systems to include constitutional, HEENT, cardiovascular, respiratory, GI, , integumentary, musculoskeletal, endocrine, immunologic, hematologic, psychiatric, and neurologic are all negative except for which is mentioned above in the HPI. [facility] Social History Social History Smoking status: Never smoker Living arrangements: with family Gender identity (if verbalized by the patient): Female Sexual Orientation (if Verbalized by the Patient): Straight or Heterosexual Spiritual care concerns: No Meds Home Medications and Allergies Home Medications Medication Instructions Recorded Confirmed Type acetaminophen 325 mg tablet 650 mg PO ONCE PRN Pain 10/09/22 10/18/22 History alprazolam 1 mg tablet 1 mg BID PRN Anxiety 10/09/22 10/18/22 History bupropion HCl 150 mg tablet,12 hr 150 mg PO BID 10/09/22 10/18/22 History sustained-release naproxen 500 mg tablet 500 mg PO BID PRN Pain 10/09/22 10/18/22 History ondansetron HCl 4 mg tablet 4 mg PO Q6-8H PRN Nausea 10/09/22 10/18/22 History topiramate 100 mg tablet 100 mg PO TID 03/29/23 04/07/23 History hydrocodone 5 mg-acetaminophen 325 1 - 2 tablet PO Q6H PRN pain #25 10/19/22 Rx mg tablet tabs amoxicillin 875 mg-potassium 1 tablet PO Q12H 10 days #20 tabs 03/13/23 Rx clavulanate 125 mg tablet hydrocodone 5 mg-acetaminophen 325 1 tablet PO Q6H PRN pain 3 days 03/13/23 Rx mg tablet #12 tabs ondansetron 4 mg disintegrating 4 mg PO Q8H PRN nausea and 03/13/23 Rx tablet vomiting #10 tabs Allergies Allergy/AdvReac Type Severity Reaction Status Date / Time adhesive Allergy Rash Verified 03/12/23 23:51 codeine Allergy Itching Verified 03/12/23 23:51 metoclopramide [From Reglan] Allergy Nausea and Verified 03/12/23 23:51 Vomiting Sulfa (Sulfonamide Allergy Rash Verified 03/12/23 23:51 Antibiotics) Vital Signs Vital Signs - 24 hr 05/14/24 14:08 Temperature 36.9 C Pulse Rate 64 Respiratory Rate 14 Blood Pressure 105/64 Pulse Oximetry 100 Oxygen Delivery Room Air Exam Const: General: comfortable and no acute distress HENMT: Ears: TM's normal bilaterally Face/Nose/Sinus: Normal nares present Mouth: Yes moist mucous membranes Eyes: General: appearance normal, both eyes and all related structures Sclera: sclerae normal Pupils: Equal, round and reactive pupils present EOM: EOMs intact bilaterally Neck: Neck: supple and no JVD Resp: Effort & Inspection: normal respiratory effort Auscultation: clear to auscultation bilaterally Cardio: Rate: regular rate Rhythm: regular rhythm GI: Other: Abdomen is soft and nondistended. He has some moderate tenderness to palpation right upper quadrant with some minimal voluntary guarding. No generalized peritoneal signs. No ventral hernias. Skin: General skin exam: normal color and no rashes or lesions noted Neuro: General: gait normal Speech: normal speech Motor exam (neuro): 5/5 motor strength present throughout and Motor abnormalites present Sensory Exam: normal sensation Extrem: General: normal to inspection Psych: Mental Status: mental status grossly normal Affect: normal affect H&P: Results Labs Labs: Short CBC 05/14/24 Range/Units 14:47 WBC 9.3 (4.5-10.0) K/mm3 Hgb 12.8 (12.0-15.0) g/dL Hct 38.7 (37.0-47.0) % Plt Count 217 (150-375) k/mm3 BMP 05/14/24 14:47 Sodium 141 Potassium 3.4 Chloride 108 H Carbon Dioxide 25 BUN 11 Creatinine 1.00 Glucose 75 Calcium 9.0 Liver Function 05/14/24 Range/Units 14:47 Total Bilirubin 0.7 (0.2-1.3) mg/dL AST 278 H (14-36) U/L ALT 146 H (6-35) U/L Alkaline Phosphatase 93 (38-126) U/L Albumin 4.5 (3.5-5.1) g/dL Urine 05/14/24 Range/Units 14:47 Urine Color Yellow (Yellow) Urine Appearance Clear (Clear) Urine pH 5.5 (5.0-9.0) Ur Specific [place] 1.022 (1.001-1.035) Urine Protein Negative (Negative) mg/dL Urine Glucose (UA) Negative (Negative) mg/dL Imaging CT scan - abdomen: Radiologist's impression: CT abdomen pelvis w con Ordering provider: Shellie Chang MD History: 33 years Female with . RIGHT ABDOMINAL PAIN . Comparison: March 13, 2023 Technique: CT abdomen and pelvis with IV and without oral contrast. Automated exposure control and iterative reconstruction technique were employed. The dose-length product was 218.52 mGy-cm. 100 mL Omnipaque 350 was given IV. Findings: VISUALIZED LOWER CHEST: Normal. UPPER ABDOMINAL ORGANS: Liver: Normal. Gallbladder: Distended. No stones. Small hypodensity seen between the liver and the gallbladder wall suggestive of pericholecystic fluid. No inflammatory changes seen around the gallbladder. Clinical correlation to evaluate for cholecystitis is advised. Spleen: Normal. Stomach/duodenum: Normal. Pancreas: Normal. Adrenals: Normal. Kidneys: Tiny cyst in the left kidney midpole. Small cysts in the right kidney midpole. PELVIC ORGANS: The bladder is normal. BOWEL AND MESENTERY: Colon: No evidence of diverticulitis. Fecal material in the right side of the colon which may indicate constipation. Normal appendix. Small Bowel: Normal. No obstruction. Peritoneum/mesentery: No free air or free fluid. No mesenteric lymphadenopathy. RETROPERITONEUM: Normal aorta. No retroperitoneal lymphadenopathy. MUSCULOSKELETAL: Superficial soft tissues: The superficial soft tissues are normal. Bones: Normal spine. Bilateral sacroiliacs. IMPRESSION: 1. Minimal pericholecystic fluid which raises the possibility of cholecystitis. Clinical correlation advised. 2. No evidence of appendicitis, diverticulitis or intestinal obstruction. 3. Constipation. Reviewed, dictated and finalized at location A. Dictated By: Kostas Barron MD 05/14/24 1700 Signed By: <Electronically signed by Kostas Barron MD in OV> 05/14/24 1713 Assessment and Plan Assessment and plan (1) Acute cholecystitis: Code(s): K81.0 - Acute cholecystitis Status: Acute Assessment and Plan: Patient appears to have acute cholecystitis. Imaging suggests acute inflammation wall the gallbladder and no obvious gallstones on CT scan although the ultrasound has not been performed. Patient is slightly elevated AST and ALT but total bilirubin is normal. Exam is consistent with acute cholecystitis and she has tenderness and guarding in the right upper quadrant under the right ribs. She has pain which radiates to her upper back. I have recommended that she be admitted to the hospital started on IV antibiotics. Be kept NPO this evening. In the morning will plan on proceeding with a laparoscopic cholecystectomy possible versus open cholecystectomy. Risks, benefits, indications, and expected outcomes were discussed with the patient and/or family members. Specific risks to include bleeding and possible need for blood transfusion, infection, bile leak, injury to other organs, common bile duct injury, and conversion to open cholecystectomy has been discussed. I have answered all their questions and they agreed to proceed with surgery as outlined above.
[2024-05-14 20:20] VITALS: BMI 25.4
--- NOTE | 2024-05-14 20:34 | ADMGEN ---
This patient, Anyi Soto, was admitted to [address] [place] [address] Room 300-01. Patient/family oriented to hospital policies and general routines including ID bracelet, bed and alarms, visiting hours, pain management, procedures, bathroom and other care routines, personal items, smoking policy, room service/diet, and visiting hours. Information on how to activate the Rapid Response Team has been discussed. Patient/Family are encouraged to report perceived risks to care and to ask questions if they do not understand what they are told or what they should do.
[2024-05-14 20:56] VITALS: BP 119/83; PULSE 69; RESP 14; TEMP 36.4; O2SAT 100
[2024-05-14] MEDS: PANTOPRAZOLE SODIUM IV 40 MG VIAL IV PUSH (21:19)
[2024-05-14] MEDS: HYDROmorphone HCL INJ (*CRX) 1 MG/ML SYR IV PUSH (21:23)
[2024-05-15] VITALS (10 sets, daily range): BP systolic 100–116; BP diastolic 61–78; PULSE 66–98; RESP 12–18; TEMP 36.2–37.1; O2SAT 97–100
[2024-05-15] MEDS: HYDROmorphone HCL INJ (*CRX) 1 MG/ML SYR IV PUSH ×3 (01:30→18:57)
[2024-05-15] MEDS: SODIUM CHLORIDE 0.9% IV 1,000 ML 150 ML IV CONT (01:31)
[2024-05-15] MEDS: PIPERACILLN/TAZ 3.375GM/NS50ML 3.375 GM/50 ML BAG IVPB (05:53)
[2024-05-15] MEDS: ONDANSETRON INJ 4 MG/2 ML VIAL IV PUSH ×4 (05:57→18:53)
[2024-05-15 06:35] LABS: Basophils Percent Auto 0.8 % (0.2-1.2); Eosinophils Absolute Auto 0.2 K/mm3 (0-0.3); Eosinophils Percent Auto 3.7 % (0-4.4); Hematocrit 31.2 % (37.0-47.0); Hemoglobin 10.3 g/dL (12.0-15.0); Immature Granulocyte Absolute 0.02 K/mm3 (0.00-0.031); Immature Granulocyte Percent A 0.4 % (0-0.5); Lymphocytes Absolute Auto 1.86 K/mm3 (0.9-3.2); Lymphocytes Percent Auto 37.7 % (18.3-44.2); Mean Corpuscular Hemoglobin 33.2 pg (26-34); Mean Corpuscular Volume 100.6 fl (80-100); Mean Platelet Volume 11.5 fl (7.4-10.4); Monocytes Absolute Auto 0.3 K/mm3 (0.1-0.6); Monocytes Percent Auto 5.5 % (2.6-8.5); Neutrophils Absolute Auto 2.6 K/mm3 (1.3-6.7); Neutrophils Percent Auto 51.9 % (45.5-73.1); Platelet Count Result 166 k/mm3 (150-375); White Blood Count 4.9 K/mm3 (4.5-10.0)
[2024-05-15 06:46] LABS: Alanine Aminotransferase 79 U/L (6-35); Alkaline Phosphatase 67 U/L (38-126); Anion Gap 8 mmol/L (4-12); Aspartate Amino Transferase 78 U/L (14-36); Bilirubin,Total 0.3 mg/dL (0.2-1.3); Blood Urea Nitrogen 8 mg/dL (7-17); Calcium 7.9 mg/dL (8.4-10.2); Carbon Dioxide 21 mmol/L (22-30); Chloride 113 mmol/L (98-107); Estimated CRCL calculation 59 ml/min; Estimated Glomerular Filt Rate > 60; Glucose 74 mg/dL (65-110); Potassium 3.5 mmol/L (3.4-5.0); Sodium 142 mmol/L (137-145)
--- NOTE | 2024-05-15 07:38 | WPDHPUPDATE1 ---
History and Physical Update Update Date/Time: 05/15/24 07:38 History and Physical has been reviewed, including an updated exam of the patient. There are NO changes in the patient's condition. Risks, benefits, and alternatives have been discussed and questions answered. Patient agrees to proceed with procedure.
--- NOTE | 2024-05-15 07:59 | P.PNAN_ITS ---
Anes - Initial Pre Proc Eval Procedure: Operation Date: 05/15/24 08:30 Proposed Procedures p Laparoscopic Cholecystectomy - Lukasz Yang MD Date/Time: 05/15/24 07:59 Surgeon: Lukasz Yang MD Pre Op Diagnosis: Cholecystitis Patient Data Age: 33 Gender: F Height: 1.55 m Weight: 61 kg Last Vital Signs Temp 36.8 C 05/15/24 05:03 Pulse 78 05/15/24 05:03 Resp 16 05/15/24 05:03 BP 100/70 05/15/24 05:03 Pulse Ox 97 05/15/24 05:03 O2 Del Method Room Air 05/15/24 01:18 Allergies Allergy/AdvReac Type Severity Reaction Status Date / Time adhesive Allergy Rash Verified 03/12/23 23:51 codeine Allergy Itching Verified 03/12/23 23:51 metoclopramide [From Reglan] Allergy Nausea and Verified 03/12/23 23:51 Vomiting Sulfa (Sulfonamide Allergy Rash Verified 03/12/23 23:51 Antibiotics) Home Medications Medication Instructions Recorded Confirmed Type acetaminophen 325 mg tablet 650 mg PO DAILY PRN Pain 10/09/22 05/14/24 History alprazolam 1 mg tablet 1 mg BID PRN Anxiety 10/09/22 05/14/24 History naproxen 500 mg tablet 500 mg PO BID PRN Pain 10/09/22 05/14/24 History ondansetron HCl 4 mg tablet 4 mg PO Q6-8H PRN Nausea 10/09/22 05/14/24 History topiramate 100 mg tablet 100 mg PO TID 10/09/22 05/14/24 History venlafaxine 1 tablet PO HS 05/14/24 05/14/24 History Laboratory Tests 05/14/24 05/15/24 14:47 06:02 WBC 9.3 K/mm3 4.9 K/mm3 (4.5-10.0) (4.5-10.0) RBC 3.90 L M/mm3 3.10 L M/mm3 (4.2-5.4) (4.2-5.4) Hgb 12.8 g/dL 10.3 L g/dL (12.0-15.0) (12.0-15.0) Hct 38.7 % 31.2 L % (37.0-47.0) (37.0-47.0) MCV 99.2 fl 100.6 H fl (80-100) (80-100) MCH 32.8 pg 33.2 pg (26-34) (26-34) MCHC 33.1 g/dl 33.0 g/dl (32-36) (32-36) RDW 12.9 % 13.0 % (11.5-14.5) (11.5-14.5) Plt Count 217 k/mm3 166 k/mm3 (150-375) (150-375) MPV 10.9 H fl 11.5 H fl (7.4-10.4) (7.4-10.4) Immature Gran % (Auto) 0.3 % 0.4 % (0-0.5) (0-0.5) Neut % (Auto) 72.9 % 51.9 % (45.5-73.1) (45.5-73.1) Lymph % (Auto) 20.0 % 37.7 % (18.3-44.2) (18.3-44.2) [place] % (Auto) 4.8 % 5.5 % (2.6-8.5) (2.6-8.5) Eos % (Auto) 1.6 % 3.7 % (0-4.4) (0-4.4) Baso % (Auto) 0.4 % 0.8 % (0.2-1.2) (0.2-1.2) Lymph # (Auto) 1.86 K/mm3 1.86 K/mm3 (0.9-3.2) (0.9-3.2) [place] # (Auto) 0.5 K/mm3 0.3 K/mm3 (0.1-0.6) (0.1-0.6) Eos # (Auto) 0.2 K/mm3 0.2 K/mm3 (0-0.3) (0-0.3) Baso # (Auto) 0.0 K/mm3 0.0 K/mm3 (0.0-0.1) (0.0-0.1) Abs Immat Gran (auto) 0.03 K/mm3 0.02 K/mm3 (0.00-0.031) (0.00-0.031) Absolute Neuts (auto) 6.8 H K/mm3 2.6 K/mm3 (1.3-6.7) (1.3-6.7) Absolute Nucleated RBC 0.000 K/mm3 0.000 K/mm3 (0.0-0.012) (0.0-0.012) Nucleated RBC % 0.0 % 0.0 % (0.0-0.2) (0.0-0.2) Sodium 141 mmol/L 142 mmol/L (137-145) (137-145) Potassium 3.4 mmol/L 3.5 mmol/L (3.4-5.0) (3.4-5.0) Chloride 108 H mmol/L 113 H mmol/L (98-107) (98-107) Carbon Dioxide 25 mmol/L 21 L mmol/L (22-30) (22-30) Anion Gap 8 mmol/L 8 mmol/L (4-12) (4-12) BUN 11 mg/dL 8 mg/dL (7-17) (7-17) Creatinine 1.00 mg/dL 0.90 mg/dL (0.7-1.0) (0.7-1.0) Estim Creat Clear Calc 54 ml/min 59 ml/min Estimated GFR > 60 > 60 (59 - ) (59 - ) Glucose 75 mg/dL 74 mg/dL (65-110) (65-110) Calcium 9.0 mg/dL 7.9 L mg/dL (8.4-10.2) (8.4-10.2) Total Bilirubin 0.7 mg/dL 0.3 mg/dL (0.2-1.3) (0.2-1.3) AST 278 H U/L 78 H U/L (14-36) (14-36) ALT 146 H U/L 79 H U/L (6-35) (6-35) Alkaline Phosphatase 93 U/L 67 U/L (38-126) (38-126) Total Protein 8.0 g/dL 6.0 L g/dL (6.3-8.2) (6.3-8.2) Albumin 4.5 g/dL 3.0 L g/dL (3.5-5.1) (3.5-5.1) Lipase 250 U/L (23-300) Urine Color Yellow (Yellow) Urine Appearance Clear (Clear) Urine pH 5.5 (5.0-9.0) Ur Specific [place] 1.022 (1.001-1.035) Urine Protein Negative mg/dL (Negative) Urine Glucose (UA) Negative mg/dL (Negative) Urine Ketones Negative mg/dL (Negative) Ur Blood (Man) Negative (Negative) Urine Nitrate Negative (Negative) Urine Bilirubin Negative (Negative) Urine Urobilinogen 1.0 mg/dL (<2.0) Leukocyte Esterase Rfl Trace H DEMETRIUS/UL (Negative) Urine RBC 3-5 H /hpf (0-2) Urine WBC 0-5 /hpf (0-3) Ur Squamous Epith Cells None seen /hpf (Few) Urine Bacteria None seen /hpf Urine Casts 0-2 Urine Test Negative Patient hx anesthesia problems: none Family hx anesthesia problems: other Results Review: All pre-operative results and documents have been reviewed as part of the pre- operative evaluation. [facility] Social History Social History Smoking status: Never smoker Alcohol intake: never Substance use: never Substance use type: does not use Do You Feel Safe in your Home?: Yes Lack of Transportation: No Lack of Food: Never True Current Housing: I Have Housing Concerned About Future Housing: No Difficulty Paying Gas/Electric Bills: No Difficulty Paying for Meds: No Currently Unemployed: No Education: High School Diploma/GED Difficulty w/ Childcare or Family Care: No Living arrangements: with family Gender identity (if verbalized by the patient): Female Sexual Orientation (if Verbalized by the Patient): Straight or Heterosexual Spiritual care concerns: No Anes - Eval Final PreProcedure Day of Procedure 05/15/24 07:59 Patient weight: normal Heart: regular rate and rhythm Lungs: clear to auscultation Airway: Mallampati scale class II Neurological: alert and oriented Last oral intake: >/= 8 hours ASA classification: II Emergent: no Anesthetic plan: proceed Anesthesia type and monitoring: general ETT and standard monitoring Results Review: All pre-operative results and documents have been reviewed as part of the pre- operative evaluation. Informed Consent: The patient's anesthetic plan and its attendant risks and benefits were discussed with the patient/family/POA. Questions were solicited and answers provided to the satisfaction of the patient/family/POA.
[2024-05-15] MEDS: LIDO 1%/EPINEPHRINE 1:100,000 20 ML VIAL 30 ML INFILTRATE (08:38)
[2024-05-15] MEDS: BUPivacaine HCL 0.5% 10 ML AMP 30 ML INFILTRATE (08:39)
[2024-05-15] MEDS: KETOROLAC 15 MG/ML VIAL (*BKC) IV PUSH (09:07)
[2024-05-15] MEDS: LACTATED RINGERS 1,000 ML 30 ML IV CONT ×2 (09:35→09:59)
--- NOTE | 2024-05-15 09:39 | P.DS_ITS ---
DS: Admitting Diagnosis Discharge Date May 15, 2024 Admitting Diagnosis Acute cholecystitis DS: Discharge Diagnosis Discharge Diagnosis (1) Acute cholecystitis: Code(s): K81.0 - Acute cholecystitis Status: Acute DS: Summary Hospital Course Reason for hospitalization: Right upper quadrant abdominal pain, acute cholecystitis Hospital Course: Patient came [facility] on May 14, 2024 complaining of a 24hour history of worsening right upper quadrant abdominal pain which radiated to her back. She had some episodes of nausea vomiting. She denied prior pain with eating. Workup in emergency room showed a normal white blood cell count. Liver enzymes were slightly elevated with elevated AST and ALT but total bilirubin was normal. CT scan abdomen pelvis was then done showing a dilated gallbladder with some gallbladder wall thickening and small amount of pericholecystic fluid. No gallstones were seen on the CT scan. She was admitted to the hospital and given some IV antibiotics. She was kept NPO and then the next morning she was then taken to the operating room where she underwent an uncomplicated laparoscopic cholecystectomy. Findings at the time of surgery showed some mildly inflamed gallbladder with mild edema of the gallbladder wall. She did well in the recovery room then was transferred back to her room on the surgical floor. She had advanced diet throughout the rest the day and was getting up and ambulating in the hallways into the bathroom. Her pain was well controlled on oral pain medications. She was then discharged home late in the day of surgery doing w ell. Status at Discharge Functional status at discharge: independent ambulation Overall status at discharge: patient is back to baseline Time Spent with Patient Time attestation: Total time spent providing and/or coordinating discharge services: Time spent: Less than 30 minutes Exam GI: Other: Abdomen is soft and nondistended. Port site incisions are healing well. No bleeding and no redness or drainage. DS: Data Data Completed and Pending Pending studies at discharge: Pending at discharge 05/15/24 08:36 Surgical [PTH] Routine Labs on day of discharge: Labs from last 24 hours 05/15/24 05/14/24 06:02 14:47 WBC 4.9 9.3 RBC 3.10 L 3.90 L Hgb 10.3 L 12.8 Hct 31.2 L 38.7 MCV 100.6 H 99.2 MCH 33.2 32.8 MCHC 33.0 33.1 RDW 13.0 12.9 Plt Count 166 217 MPV 11.5 H 10.9 H Immature Gran % (Auto) 0.4 0.3 Neut % (Auto) 51.9 72.9 Lymph % (Auto) 37.7 20.0 [place] % (Auto) 5.5 4.8 Eos % (Auto) 3.7 1.6 Baso % (Auto) 0.8 0.4 Lymph # (Auto) 1.86 1.86 [place] # (Auto) 0.3 0.5 Eos # (Auto) 0.2 0.2 Baso # (Auto) 0.0 0.0 Abs Immat Gran (auto) 0.02 0.03 Absolute Neuts (auto) 2.6 6.8 H Absolute Nucleated RBC 0.000 0.000 Nucleated RBC % 0.0 0.0 Sodium 142 141 Potassium 3.5 3.4 Chloride 113 H 108 H Carbon Dioxide 21 L 25 Anion Gap 8 8 BUN 8 11 Creatinine 0.90 1.00 Estim Creat Clear Calc 59 54 Estimated GFR > 60 > 60 Glucose 74 75 Calcium 7.9 L 9.0 Total Bilirubin 0.3 0.7 AST 78 H 278 H ALT 79 H 146 H Alkaline Phosphatase 67 93 Total Protein 6.0 L 8.0 Albumin 3.0 L 4.5 Lipase 250 Urine Color Yellow Urine Appearance Clear Urine pH 5.5 Ur Specific [place] 1.022 Urine Protein Negative Urine Glucose (UA) Negative Urine Ketones Negative Ur Blood (Man) Negative Urine Nitrate Negative Urine Bilirubin Negative Urine Urobilinogen 1.0 Leukocyte Esterase Rfl Trace H Urine RBC 3-5 H Urine WBC 0-5 Ur Squamous Epith Cells None seen Urine Bacteria None seen Urine Casts 0-2 Urine Test Negative Blood Type O Positive Antibody Screen Negative Discharge Plan Discharge Attending physician on discharge: Lukasz Yang Discharging Clinician: Lukasz Yang Anticipated Discharge Date/Time: 05/15/24 17:00 Patient Disposition: Home, Self-Care Activity: other - see discharge instructions Diet: as tolerated Wound Care Instructions: other - see discharge instructions Discharge Instructions: May discharge home when stable. Follow up with Dr. Yang in the office in 2 weeks. Patient to call [phone] for an appointment. May shower in 24hours but do not soak incisions under water for 2 weeks. No lifting more than 10 to 15 lb for 2 weeks. May advance diet as tolerated. No driving for at least 3 days or until no longer taking any narcotic pain medication. Resume all home medications. Prescription for narcotic pain medicines will be sent to the patient's pharmacy if needed. May use Tylenol and/or ibuprofen in addition to or in place of narcotic pain medications for postoperative pain. Patient Instructions: Antibiotic Form Stand Alone Forms: General Discharge Information Follow-up/Referrals: Lukasz Yang MD [Physician] - Discharge Medications: New hydrocodone-acetaminophen 5-325 mg tablet 1 tablet PO Q4H PRN (Reason: pain) Qty: 12 0RF Continued acetaminophen 325 mg Tablet 650 mg PO DAILY PRN (Reason: Pain) alprazolam 1 mg tablet 1 mg BID PRN (Reason: Anxiety) ondansetron HCl 4 mg tablet 4 mg PO Q6-8H PRN (Reason: Nausea) topiramate 100 mg tablet 100 mg PO TID naproxen 500 mg tablet 500 mg PO BID PRN (Reason: Pain) venlafaxine 150 mg 1 tablet PO HS Date of admission: 05/15/24 07:09 Primary Care Provider: Nils,Michael Hernandez Admitting Provider: Lukasz Yang Attending physician on admission: Lukasz Yang Condition: Stable
--- NOTE | 2024-05-15 09:49 | W.PM.PROC2 ---
Procedure Note - Detailed Date of Procedure 05/15/24 Pre-op Diagnosis Acute Cholecystitis Post-op Diagnosis Same Procedure Performed Laparoscopic cholecystectomy Surgeon Lukasz Yang MD Treatment Supervisor DESTINY Sididqui Anesthesia General Indications Patient is a 33-year-old female who presented with a one-day history of severe right upper quadrant abdominal pain radiated to her back. CT scan showed acute cholecystitis. She presents now for laparoscopic cholecystectomy. Findings The gallbladder was mildly inflamed with mild edema of the gallbladder wall. No adhesions of the duodenum, stomach, or omentum to the gallbladder was seen. Palpation of the gallbladder after was removed not obviously reveal any palpable gallstones although the gallbladder was not opened. It was sent to pathology for examination. Description of Procedure After informed consent was obtained patient brought to the operating room she was placed supine position and general endotracheal anesthesia was administered. The abdomen was then prepped and draped usual sterile fashion. A time-out was then performed correctly identifying the patient as well as procedure to be performed. She was already on scheduled IV antibiotics. I then entered the abdomen left upper quadrant utilizing a 5mm Optiview port. Once inside the abdomen insufflated to adequate pneumoperitoneum of 15mmHg of CO2. I then placed a 5mm periumbilical trocar port, a 10mm epigastric trocar port, and 2 right lateral subcostal 5mm trocar ports all under direct visualization. The gallbladder was visualized the right upper quadrant was distended with some mild edema of the gallbladder wall. Some mild erythema as well but no gangrene or perforation of gallbladder. There were no adhesions of the duodenum, stomach, or omentum to the gallbladder. The gallbladder cell laparoscopic grasper and elevated over the right half liver towards right shoulder. Second grasper used to hold the gallbladder at the infundibulum. I then proceeded to strip down the visceral peritoneum off of the infundibular gallbladder to identify the cystic duct. The cystic duct was then dissected out circumferentially. Cystic artery was identified and dissected out circumferentially as well. There was both a posterior and an anterior branch and they were dissected out separately. I then stripped the cystic duct to make sure there was no stone within it. I then had the critical view after dissecting the lower 3rd of the liver bed. I then placed 2 clips proximally cystic duct 2 clips distally high on infundibular gallbladder. I then divided the cystic duct with Endo Anirudh. In a similar fashion both the anterior posterior branches of the cystic artery clipped and divided as well. The gallbladder was then resected off the liver bed utilized electrocautery. There was a small amount of bile spilled with the dissection. Once the gallbladder was free from the liver is placed into an Endo-Catch bag and brought out through the epigastric port site. It was passed off table sent to pathology for examination. I did not obviously feel gallstones within the gallbladder. I then aspirated a small amount of bile that spilled from the gallbladder in the right upper quadrant. I then irrigated out the right upper quadrant the abdomen was about 1L of sterile saline solution. I then checked the gallbladder bed was hemostatic. There was no some bile leak. I then aspirated the fluid from the right upper quadrant the abdomen from the pelvis. I then removed all the trocar ports under visualization all port sites appeared hemostatic. I then allowed the abdomen decompress. I then irrigated all the port sites sterile saline solution hemostasis was good. I then closed the epigastric 10mm trocar port fascial defect utilizing 0 Vicryl suture. The skin edges in all the port sites were then approximated utilizing a running subcuticular 4 Monocryl suture. The incisions were then cleaned and then skin glue was applied. The patient tolerated the procedure well no complications. All sponges, needles, and instrument counts were correct at the end procedure. EBL was _10__cc. The patient was awakened and taken to recovery in stable and satisfactory condition. Implants None Estimated Blood Loss 10 Drains No Packing No Pathology Yes (Gallbladder to pathology) Complications No immediate complications Condition Stable Disposition PACU [facility] Billing Surgery - Charge Forward: Surgery Billing
[2024-05-15] MEDS: fentaNYL CITRATE INJ (*CRX) 100 MCG/2 ML VIAL 25 MCG IV PUSH ×7 (09:53→10:25)
[2024-05-15] MEDS: diphenhydrAMINE HCl INJ 50 MG/ML VIAL 12.5 MG IV PUSH (10:17)
[2024-05-15] MEDS: PANTOPRAZOLE SODIUM IV 40 MG VIAL IV PUSH (11:01)
[2024-05-15] MEDS: oxyCODONE HCL (*CRX) 5 MG TAB IR PO ×2 (11:17→16:48)
[2024-05-15] MEDS: HYDROcodone/acetaminophen (*CRX) 5-325 MG TABLET 1 TAB PO ×2 (14:08→22:17)
[2024-05-16] MEDS: HYDROmorphone HCL INJ (*CRX) 1 MG/ML SYR IV PUSH (00:52)
[2024-05-16] MEDS: ONDANSETRON INJ 4 MG/2 ML VIAL IV PUSH (00:52)
--- NOTE | 2024-05-16 01:24 | PC.NURSE ---
Daylight Savings Time For Daylight Savings Time Ending in the Fall - Clocks are moved back. For Daylight Savings Time Beginning in the Spring - Clocks are moved ahead. For [facility], the time of change occurs at 0200 hrs. Time is taken from the admissions clinician. This entry on the patient's chart recognizes the change in time reflected during documentation. Example: 2 entries for vital signs may be charted for 0200 hrs.
[2024-05-16] MEDS: HYDROcodone/acetaminophen (*CRX) 5-325 MG TABLET 1 TAB PO (05:14)
[2024-05-16 06:00] VITALS: BP 101/67; PULSE 78; RESP 12; TEMP 36.4; O2SAT 98
[2024-05-16] MEDS: PANTOPRAZOLE SODIUM IV 40 MG VIAL IV PUSH (08:12)
[2024-05-16] MEDS: oxyCODONE HCL (*CRX) 5 MG TAB IR PO (08:12)
== END 2024-05-16 11:28 | disposition home or self-care (01) | DRG 419 ==
LOC: ANHED 16:51 → ANH3MEDSUR 19:37
PROVIDERS: Physician Assistant; Admitting Provider Surgery; Emergency Provider Emergency Medicine; PCP Emergency Medicine; Visit Provider Surgery
PROC: 0FT44ZZ Resection of Gallbladder, Percutaneous Endoscopic Approach (ICD-10-PCS; CPT 47562; principal; 2024-05-15 08:30)
DX: K80.00 Calculus of gallbladder with acute cholecystitis without obstruction (principal)
CPT/HCPCS: 36415; 74177; 80053; 81001; 81025; 83690; 85025; 86850; 86900; 86901; 88304; 96361; 96365; 96375; 96376; 99285; A9270; G0378; J1100; J1171; J1200; J1885; J2004; J2250; J2405; J2470; J2543; J2704; J3010; J7030; J7120; Q9967

== ENCOUNTER 2024-10-15 13:26 | Outpatient (CLI) | payer OTHER, SELFPAY ==
--- NOTE | ~2024-10-15 | XR_ITS ---
Supine and upright views of the abdomen Clinical history: Kidney stone Findings: Bowel gas pattern is nonspecific. No evidence for obstruction or free air. Small left renal stones measuring up to 3-4 mm in maximum diameter. Cholecystectomy clips. Osseous structures are int act. Impression: Small left renal stones, as above. Reviewed, dictated and finalized at [facility]. Impression: Small left renal stones, as above.
--- OUTSIDE RECORDS SUMMARY | 2024-10-15 13:44 | XMS_ITS | Clinical Summary ---
Author Organization [facility] Address [address] [place] [address] Care Team Providers Care Lithographing Machine Operator Name Role Phone Michael Wray MD Primary Care Provider [phone] Allergies Active Allergy Reactions Criticality Noted Date Comments Tape Rash Low 05/01/2020 Sulfamethoxazole-Trimethoprim Rash High 2020 Codeine Itching High 06/02/2019 Metoclopramide Nausea Only High 06/02/2019 Sulfa Antibiotics Rash High 05/01/2020 Medications ALPRAZolam (XANAX) 1 MG tablet Take 1 tablet (1 mg total) by mouth 2 (two) times daily. Active topiramate 100 MG tablet 3 (three) times daily. 0 Active HYDROcodone-acetami nophen (NORCO) 5-325 MG tabletIndications:A cute Pain < 3 Day Supply Take 1 tablet by mouth every 6 (six) hours as needed for Pain. Indications : Acute Pain < 3 Day Supply 10 tablet 3 Active ondansetron (ZOFRAN-ODT) 4 MG disintegrating tablet Take 1 tablet (4 mg total) by mouth every 6 (six) hours as needed for Nausea. 20 tablet 4 Active dicyclomine (BENTYL) 20 MG tablet Take 1 tablet (20 mg total) by mouth every 6 (six) hours as needed (abd cramping/pa in). 20 tablet 4 Active ondansetron (ZOFRAN-ODT) 4 MG disintegrating tablet Take 1 tablet (4 mg total) by mouth every 8 (eight) hours as needed for Nausea. 20 tablet 4 Active ondansetron (ZOFRAN-ODT) 4 MG disintegrating tablet Take 1 tablet (4 mg total) by mouth every 8 (eight) hours as needed for Nausea. 20 tablet 5 Active HYDROcodone-acetami nophen (NORCO) 5-325 MG tabletIndications:A cute Pain < 3 Day Supply Take 1 tablet by mouth every 6 (six) hours as needed for Pain. Indications : Acute Pain < 3 Day Supply 12 tablet 5 Active Active Problems Problem Noted Date Diagnosed Date Migraine 12/06/2014 Overview (04/28/2020): Date Onset: 12/06/2014 Endometriosis 10/14/2014 Overview (04/28/2020): Date Onset: 10/14/2014 Encounters Date Type Department Care Team Description 10/12/2024 3:34 PM CDT - 10/12/2024 5:31 PM CDT Emergency [facility] Emergency Services [facility] [place] [address] Joe Ochoa MD Flank Pain Discharge Disposition: Home or Self Care (Routine Discharge) 10/12/2024 Travel from Last 3 Months Social History Tobacco Use Types Packs/Day Years Used Date Smoking Tobacco: Never Smokeless Tobacco: Never Tobacco Cessation:Counseling Given: Not Answered Alcohol Use Standard Drinks/Week Comments Never 0 (1 standard drink = 0.6 oz pur e alcohol) AUDIT-C Answer Date Recorded Q1: How often do you have a drink containing alc ohol? Never 05/01/2020 Average Number of Drinks Not on file 020 Frequency of Binge Drinking Not on file 04/13 Comments No Sex and Gender Information Value Date Recorded Sex Assigned at Not on file Legal Sex Female 2:03 PM CDT Gender Identity Female 07/18/2022 4:46 AM [employer]ORER Sexual Orientation Straight 07/18/2022 4: 46 AM [employer]ORER Last Filed Vital Signs Vital Sign Reading Time Taken Comments Blood Pressure 125/75 10/12/2024 5:27 PM CDT Pulse 68 10/12/2024 5:27 PM CDT Temperature 36.7 C (98.1 F) 10/12/2024 5:27 PM CDT Respiratory Rate 16 10/12/2024 5:27 PM CDT Oxygen Saturation 100% 10/12/2024 5:27 PM CDT Inhaled Oxygen Concentration - - Weight 61.2 kg (135 lb) 10/12/2024 3:36 PM CDT Height 154.9 cm (5' 1 ) 10/12/2024 3:36 PM CDT Body Mass Index 25.51 10/12/2024 3:36 PM CDT Plan of Treatment Health Maintenance Due Date Last Done Comments Annual Physical 09/13/1994 Hepatitis C 09/13/2009 DTaP, Tdap and Td Vaccines (2 - Tdap) 09/13/2010 11/12/1996, 08/28/1993, 07/03/1992, Additional history exists Hepatitis B Vaccines (1 of 3 - 19+ 3-dose series) 09/13/2010 COVID-19 Vaccine ( season) 2024 HPV Vaccines Completed 09/01/2009, 07/2008, 02/06/2009 Meningococcal B Vaccine Aged Out No l onger eligible based on patient's age to complete this topic Meningococcal Vaccine Aged Out No aurelia carri eligible based on patient's age to complete this topic Pneumococcal Vaccine: Pediatrics (0 to 5 Years) and At-Risk Patients (6 to 64 Years) Aged Out No longer eligible based on patient's age to complete this topic RSV Immunizations Under 20 Months Aged Out No longer eligible based on patient's age to complete this topic Procedures Procedure Name Priority Date/Time Associated Diagnosis Comments CT ABD+PEL KIDNEY STONE STAT 10/12/2024 3:56 PM CDT URINALYSIS AUTO DIP STAT 10/12/2024 3 :45 PM CDT COMPREHENSIVE METABOLIC PANEL STAT 10/12/2024 3:45 PM CDT CBC W/DIFF AUTOMATED STAT 10/12/2024 3:45 PM CDT from Last 3 Months Results * CT ABD+PEL KIDNEY STONE (10/12/2024 3:56 PM CDT) Anatomical Region Laterality Modality Abdomen Computed Tomogra phy 10/12/2024 4:02 PM CDT Impressions 10/12/2024 4:03 PM CDT IMPRESSION: 1. Mild right hydronephrosis due to a 4 mm stone obstructing the right UPJ. In addition, many small stones are scattered throughout the collecting systems of both kidneys Ordered By: JOE OCHOA Interpreted By: Talib Mcdaniel MD, 10/12/2024 4:02 PM Narrative 10/12/2024 4:03 PM CDT [address] [place] [address] CT ABDOMEN AND PELVIS WITHOUT CONTRAST Clinical history: Right flank pain. Technique: Helical images of the abdomen and pelvis were obtained without contrast. A dose lowering technique was used for this procedure, which may include, but is not limited to, dose reduction technique, automated exposure control, the use of iterative reconstruction, and ALARA (As Low As Reasonably Achievable) / Image Gently techniques. Comparison: June 21, 2023. FINDINGS: Images of the lower thorax demonstrate the visualized portion of the heart to appear normal. The lung bases are clear. Images of the abdomen demonstrate the overall size and morphology of the liver to be within normal limits. No hepatic lesions are observed. No ascites is seen. The gallbladder is surgically absent. The pancreas, spleen, and adrenal glands appear grossly normal. The kidneys are normal in overall size. Many small stones are scattered throughout the collecting systems of both kidneys. On the right there is mild hydronephrosis which is due to a 4 mm stone obstructing the right UPJ. No left-sided hydronephrosis is noted. Images of the pelvis demonstrate the urinary bladder to appear normal. The uterus is surgically absent. The stomach and small bowel have a normal overall appearance. The terminal ileum appears normal. The colon is within normal limits Procedure Note Talib Mcdaniel MD - 10/12/[address] [place] [address] CT ABDOMEN AND PELVIS WITHOUT CONTRAST Clinical history: Right flank pain. Technique: Helical images of the abdomen and pelvis were obtained withoutcontrast. A dose lowering technique was used for this procedure, which mayinclude, but is not limited to, dose reduction technique, automatedexposure control, the use of iterative reconstruction, and ALARA (As LowAs Reasonably Achievable) / Image Gently techniques. Comparison: June 21, 2023. FINDINGS: Images of the lower thorax demonstrate the visualized portion of the heartto appear normal. The lung bases are clear. Images of the abdomen demonstrate the overall size and morphology of theliver to be within normal limits. No hepatic lesions are observed. Noascites is seen. The gallbladder is surgically absent. The pancreas,spleen, and adrenal glands appear grossly normal. The kidneys are normal in overall size. Many small stones are scatteredthroughout the collecting systems of both kidneys. On the right there ismild hydronephrosis which is due to a 4 mm stone obstructing the rightUPJ. No left-sided hydronephrosis is noted. Images of the pelvis demonstrate the urinary bladder to appear normal. Theuterus is surgically absent. The stomach and small bowel have a normal overall appearance. The terminalileum appears normal. The colon is within normal limits IMPRESSION: 1. Mild right hydronephrosis due to a 4 mm stone obstructing the rightUPJ. In addition, many small stones are scattered throughout thecollecting systems of both kidneys Ordered By: JOE OCHOA Interpreted By: Talib Mcdaniel MD, 10/12/2024 4:02 PM Joe Ochoa MD CT Final Result * (ABNORMAL) URINALYSIS AUTO DIP (10/12/2024 3:45 PM CDT) COLOR (U) BROWN(A) YELLOW 10/12/2024 4:10 PM CDT [facility] TRANSPARENCY SLIGHTLY CLOUDY(A) CLEAR 10/12/2024 4:10 PM CDT [facility] SPECIFIC GRAVITY (U) 1.025 1.010 - 1.025 10/12/2024 4:10 PM CDT [facility] U PH 6.5 5.0 - 8.5 10/12/2024 4:10 PM CDT [facility] LEUKOCYTES (U) NEGATIVE NEGATIVE 10/12/2024 4:10 PM CDT [facility] NITRITES NEGATIVE NEGATIVE 10/12/2024 4:10 PM CDT [facility] PROTEIN RANDOM (U) 1+(A) NEGATIVE 10/12/2024 4:10 PM CDT [facility] GLUCOSE (U) NEGATIVE NEGATIVE 10/12/2024 4:10 PM CDT [facility] KETONES MG/DL (U) NEGATIVE NEGATIVE 10/12/2024 4:10 PM CDT [facility] UROBILINOGEN 0.2 0.2 - 1.0 EU/DL 10/12/2024 4:10 PM CDT [facility] BILIRUBIN (U) 3+(A) NEGATIVE 10/12/2024 4:10 PM CDT [facility] BLOOD (U) 4+(A) NEGATIVE 10/12/2024 4:10 PM CDT [facility] URINE SPECIMEN OBTAINED BY CLEAN CATCH PROCEDURE / Unknown 10/12/2024 3:45 PM CDT us Joe Ochoa MD URINE ORDERABLES Final Result [address] [place] [address], * (ABNORMAL) COMPREHENSIVE METABOLIC PANEL (10/12/2024 3:45 PM CDT) [facility] GLUCOSE 82 70 - 99 MG/DL 10/12/2024 4:53 PM CDT [facility] BUN 15 7 - 18 MG/DL 10/12/2024 4:53 PM CDT [facility] CREATININE S/P/B 0.88 0.50 - 1.20 MG/DL 10/12/2024 4:53 PM CDT [facility] SODIUM S/P/B 140 136 - 145 MMOL/L 10/12/2024 4:53 PM CDT [facility] POTASSIUM S/P/B 3.5 3.5 - 5.1 MMOL/L 10/12/2024 4:53 PM CDT [facility] CHLORIDE S/P/B 107 100 - 108 MMOL/L 10/12/2024 4:53 PM CDT [facility] CO2 22.8 21.0 - 32.0 MMOL/L 10/12/2024 4:53 PM CDT [facility] CALCIUM S/P/B 8.7 8.5 - 10.1 MG/DL 10/12/2024 4:53 PM CDT [facility] BILIRUBIN TOTAL S/P/B 0.4 0.2 - 1.2 MG/DL 10/12/2024 4:53 PM CDT [facility] Comment: THIS ASSAY IS NOT RECOMMENDED FOR PATIENTS UNDERGOING TREATMENT WITH ELTROMBOPAG DUE TO THE POTENTIAL FOR FALSELY ELEVATED RESULTS. TOTAL PROTEIN S/P/B 7.4 6.4 - 8.2 G/DL 10/12/2024 4:53 PM CDT [facility] ALBUMIN S/P/B 3.7 3.4 - 5.0 G/DL 10/12/2024 4:53 PM CDT [facility] AST 14(L) 15 - 37 U/L 10/12/2024 4:53 PM CDT [facility] ALT 16 14 - 55 U/L 10/12/2024 4:53 PM CDT [facility] ALKALINE PHOSPHATASE S/P/B 77 50 - 136 U/L 10/12/2024 4:53 PM CDT [facility] ANION GAP 10.2 5.0 - 15.0 MMOL/L 10/12/2024 4:53 PM CDT [facility] BUN CREATININE RATIO 17.0 6 - 26 10/12/2024 4:53 PM CDT [facility] A/G RATIO 1.0 1.0 - 2.5 RATIO 10/12/2024 4:53 PM CDT [facility] GFR ESTIMATE 89(L) >90 ML/MIN/1.7 3 M2 10/12/2024 4:54 PM CDT [facility] Comment: NOTE: eGFR is not calculated for patients <18 years of age or gender unknown. This is an estimated GFR calculation using the new CKD EPI creatinine equation without race and so does not require a correction factor for race. This estimated GFR should not be used for calculating drug doses. CORRECTED ON 10/12 AT 1654: PREVIOUSLY REPORTED 89 NOTE: eGFR is not calculated for patients <18 years of age. This is an estimated GFR calculation using the new CKD EPI creatinine equation without race and so does not require a correction factor for race. This estimated GFR should not be used for calculating drug doses. 10/12/2024 3:45 PM CDT us Joe Ochoa MD LABORATORY Edited Result - Final [facility] [address] [place] [address], * CBC W/DIFF AUTOMATED (10/12/2024 3:45 PM CDT) WBC 7.70 4.50 - 11.00 x10'3/uL 10/12/2024 4:10 PM CDT [facility] RBC 4.03 4.00 - 5.20 x10'6/uL 10/12/2024 4:10 PM CDT [facility] HGB 12.6 12.0 - 16.0 G/DL 10/12/2024 4:10 PM CDT [facility] HCT 38.0 38.0 - 48.0 % 10/12/2024 4:10 PM CDT [facility] MCV 94.3 80.0 - 100.0 FL 10/12/2024 4:10 PM CDT [facility] MCH 31.3 26.0 - 34.0 PG 10/12/2024 4:10 PM CDT [facility] MCHC 33.2 31.0 - 37.0 G/DL 10/12/2024 4:10 PM CDT [facility] RDW 12.9 11.6 - 14.8 % 10/12/2024 4:10 PM CDT [facility] PLT 194 130 - 400 x10'3/uL 10/12/2024 4:10 PM CDT [facility] MPV 11.2 7.0 - 12.0 FL 10/12/2024 4:10 PM CDT [facility] CBC COMMENT AUTOMATED RBC MORPHOLOGY AND PLATELET EVALUATION NORMAL 10/12/2024 4:10 PM CDT [facility] NEUTROPHILS % 58.3 40.0 - 74.0 % 10/12/2024 4:10 PM CDT [facility] LYMPHOCYTES % 34.3 14.0 - 46.0 % 10/12/2024 4:10 PM CDT [facility] MONOCYTES % 5.1 4.0 - 13.0 % 10/12/2024 4:10 PM CDT [facility] EOSINOPHILS 1.8 0.0 - 7.0 % 10/12/2024 4:10 PM CDT [facility] BASOPHILS 0.4 0.0 - 3.0 % 10/12/2024 4:10 PM CDT [facility] IMMATURE GRANS % 0.1 0.0 - 0.43 % 10/12/2024 4:10 PM CDT [facility] NRBC % 0.0 % 10/12/2024 4:10 PM CDT [facility] ABS. NEUTROPHILS TOTAL 4.49 1.69 - 7.81 x10'3/uL 10/12/2024 4:10 PM CDT [facility] ABS. LYMPHOCYTES 2.64 0.21 - 5.42 x10'3/uL 10/12/2024 4:10 PM CDT [facility] ABS. MONOCYTES 0.39 0.04 - 1.37 x10'3/uL 10/12/2024 4:10 PM CDT [facility] ABS. EOSINOPHILS 0.14 0.00 - 0.68 x10'3/uL 10/12/2024 4:10 PM CDT [facility] ABS. BASOPHILS 0.03 0.00 - 0.08 x10'3/uL 10/12/2024 4:10 PM CDT [facility] ABS. IMMATURE GRANULOCYTES 0.01 0.00 - 0.06 x10'3/uL 10/12/2024 4:10 PM CDT [facility] ABS. NUCLEATED RBC'S 0.00 0.00 - 0.01 x10'3/uL 10/12/2024 4:10 PM CDT [facility] 10/12/2024 3:45 PM CDT us Joe Ochoa MD LABORATORY Final Result Performing Organization Address City/State/[facility] Co de Phone Number [facility] [address] [place] [address], from Last 3 Months Additional Health Concerns Infection Onset Date Last Indicated MRSA Comment:04/11/2020 +MRSA Back wound 04/14/2020 04/14/2020 Insurance ALLIED Care Teams Lithographing Machine Operator Relationship Specialty Start Date End Date Michael Wray MD [address] [place] [address] PCP - General FAMILY PRACTICE 06/02/19
--- OUTSIDE RECORDS SUMMARY | 2024-10-15 13:44 | XMS_ITS | Encounter Summary ---
Author Organization [facility] Address [address] [place] [id number] Care Team Providers Care Tower Switch Operator Name Role Phone Michael Wray MD Primary Care Provider [phone] Encounter Details Date Type Department Care Team (Late st Contact Info) Description 07/18/2022 [employer] Platform Message [facility] Health Information Services [address] [place] [id number] [facility] Provider PT NAME CHANGE Social History Tobacco Use Types Packs/Day Years Used Date Smoking Tobacco: Never Smokeless Tobacco: Never Alcohol Use Standard Drinks/Week Comments Never 0 [...] CDT Gender Identity Female 07/18/2022 4:46 AM LINE CREWMAN Sexual Orientation Straight 07/18/2022 4: 46 AM [employer] CREWMAN COVID-19 Exposure Response Date Recorded In the last 10 days, have yo u been in contact with someone who was confirmed or suspected to have Coronavirus/COVID-19? No / Unsure 07/17/2022 6:19 PM LINE CREWMAN documented as of this encounter Plan of Treatment Not on file documented as of this encounter Visit Diagnoses Not on filedocumented in this encounter Additional Health Concerns Infection Onset Date Last Indicated Resolved Time MRSA Comment:04/11/2020 +MRSA Back wound 04/14/2020 04/14/2020 documented as of this encounter Care Teams Tower Switch Operator Relationship Specialty Start Date End Date Michael Wray MD [address] [place] [address] PCP - General FAMILY PRACTICE 06/02/19 documented as of this encounter
--- OUTSIDE RECORDS SUMMARY | 2024-10-15 13:44 | XMS_ITS | Data Portability ---
Author Organization [facility] Address [address] [place] [address] [place] [address] Care Team Providers Care School Social Worker Name Role Phone JENNIFER MARICEL Primary Care Provider Assessment No assessment recorded. Plan of Treatment Reminders Order Date Submit Date Provider Last Modified By Organization Details Last Modified Time Details Appointments None recorded. Lab None recorded. Referral None recorded. Procedures None recorded. Surgeries None recorded. Imaging US, transvagina l [address], [address], [place], [address], 4 19:59:08 US, pelvis, complete 2023 024 [facility], [address], [address], [place], [address], 4 05:01:17 US, transvagina l 2022 023 [address], [address], [place], [address], 3 10:28:40 Medication Orders oxycodone-a cetaminophe n 5 mg-325 mg tablet 2023 024 [id number], [address], [place], [address], 4 17:17:49 Patient TargetsNo targets recorded. Patient InstructionsNo instructions recorded. Reason for Referral None Reported. Results Created Date Observation Date Name Description Value Unit Range Abnormal Flag Note LastModifiedBy Organization Detail LastModifiedTime 09/09/19 24 09/09/2023 CULTU RE: URINE result report SEE RESULT S BELOW Test: Cultu re: Urine Speci men Sourc e: Urine Voide d Speci men Type: Urine Speci men Date: 2023 2:57 PM Resul t Date: 2023 6:45 PM Resul t Statu s: Final resul t Abnor mal: No Resul ting Lab: [facility] [address] [facility] [address] Tel: CULTU RE ----- ----- ----- --- No growt h in 1 day (dete ction level of 10,00 0 colon ies / ml.) Not Available [facility] (Lab) [address] [facility], [place], [address], 09/10/2023 19:49:46 09/09/19 24 09/09/2023 urina lysis , dipst ick pH Not Available [facility] [address], [place], [address], 09/09/2023 15:39:32 06/30/20 23 06/30/2023 US, trans vagin al No observ ation record ed. [email or web address] [place] [address], [place], [address], 06/30/2023 18:20:36 06/30/20 23 06/30/2023 US, trans vagin al No observ ation record ed. [email or web address] [address], [place], [address], 07/01/2023 09:54:19 09/11/19 24 09/11/2023 US, trans vagin al No observ ation record ed. [email or web address] [place] [address], [place], [address], 09/11/2023 11:08:46 09/11/19 24 09/11/2023 US, trans vagin al No observ ation record ed. aric [address], [place], [address], 09/12/2023 09:25:02 05/14/20 24 05/14/2024 MAMMO , diagn ostic , digit al, bilat eral No observ ation record ed. [address] (Mammography) [address], [place], [address], 07/20/2024 15:33:44 Result Notes None recorded. Problems Name Problem SNOMED Code Status Onset Date Resolution Date Notes Provider Name and Address Organization Details Recorded Time Migraine 43543520 Active 2022 Allyn schmidt [facility] 3 16:56:24 Mixed anxiety and depressive disorder 880058706 Active 2022 Allyn schmidt [facility] 3 16:56:38 Problem Notes None recorded. Procedures Surgical History Date Name Laterality Status Provider Name and Address Organization Details Recorded Time 10/23/19 23 ROBOTIC ASSISTED HYSTERECTOMY WITH SALPINGECTOMY (SURG) completed Natalia Storm [facility] 10/23/2022 10:32:32 07/14/19 20 termination of completed Allyn Zimmerman [facility] 06/30/2023 16:58:54 07/14/19 15 Endometrial Ablation completed Allynhuy Zimmerman [facility] 06/30/2023 16:58:35 07/14/19 13 extraction of wisdom tooth completed Allyn Zimmerman [facility] 09/16/2023 17:08:45 12/02/19 12 Caesarean Section completed Allynhuy Zimmerman [facility] 06/30/2023 16:58:31 Imaging Results Imaging Date Name Status LastModified by Organization Details LastModified Time 06/30/2023 US, transvaginal completed [email or web address] [place] [facility] [address], [place], [address], 06/30/2023 18:20:36 06/30/2023 US, transvaginal completed [email or web address] [address], [place], [address], 07/01/2023 09:54:19 09/11/2023 US, transvaginal completed [email or web address] [place] [address], [place], [address], 09/11/2023 11:08:46 09/11/2023 US, transvaginal completed [email or web address] [address], [place], [address], 09/12/2023 09:25:02 05/14/2024 MAMMO, diagnostic, digital, bilateral completed [address] (Mammography) [address], [place], [address], 07/20/2024 15:33:44 Procedure Notes None recorded. Medical Equipment None Reported. Allergies Allergen ID Allergen Name Allergen Category Reaction Reaction Severity Criticality Documentation Date Start Date Code Code System Note Provider Name and Address Organization Details Recorded Time Bactrim medicatio n rash Not available Not available 08/12/2022 56299 9 RxNorm Jennifer schmidt [facility] 3 14:39:20 19568 Reglan medicatio n nausea Not available Not available 08/12/2022 9230 RxNorm Jennifer schmidt [facility] 3 14:39:20 89247 Substance with sulfonami de structure and antibacte rial mechanism of action (substanc e) medicatio n Not available Not available Not available 08/12/2022 68550 8003 SNOMED Jenniferslava schmidt [facility] 3 15:05:41 93973 adhesive environme nt,medica tion Not available Not available Not available 08/12/2022 59214 UNK Jennifer Lindsey [facility] 3 15:05:49 Medications Name Sig Start Date Stop Date Status Note LastModified by Organization Details LastModified Time bupropion HCl SR 150 mg tablet,12 hr sustained-r elease TAKE 1 TABLET BY MOUTH TWICE A DAY 09/08 completed Not Available Not Available Not Available azithromyci n 250 mg tablet 06/30 completed Not Available Not Available Not Available alprazolam 1 mg tablet TAKE 1/2 TABLET BY MOUTH EVERY 8 HOURS NEEDED 04/28 completed Not Available Not Available Not Available hydrocodone 5 mg-acetamin ophen 325 mg tablet Take 1 tablet every 6 hours by oral route. 09/08 completed Not Available Not Available Not Available ondansetron HCl 4 mg tablet TAKE 1 TABLET ORALLY NEEDED EVERY (12) TWELVE HOURS NEEDED 06/30 completed Not Available Not Available Not Available ketorolac 10 mg tablet 08/12 completed Not Available Not Available Not Available oxycodone-a cetaminophe n 5 mg-325 mg tablet TAKE 1 TABLET BY MOUTH EVERY 6 HOURS 04/28 completed Not Available Not Available Not Available hydromorpho ne 2 mg tablet TAKE 1 TABLET BY MOUTH EVERY 12 HOURS NEEDED FOR SEVERE PELVIC PAIN 08/12 completed Not Available Not Available Not Available venlafaxine ER 150 mg capsule,ext ended release 1 capsule every day by oral route. active Not Available Not Available No t Available dicyclomine 20 mg tablet TAKE 1 TABLET BY MOUTH EVERY 6 HOURS NEEDED ABDOMINAL CRAMPING/ PAIN 04/28 completed Not Available Not Available Not Available neomycin-po lymyxin-dex ameth 3.5 mg/mL-10,00 0 unit/mL-0.1 % eye drops INSTILL 1 DROP IN RIGHT EYE THREE TIMES A DAY 04/28 completed Not Available Not Available Not Available levofloxaci n 500 mg tablet TAKE 1 TABLET BY MOUTH EVERY DAY 08/12 completed Not Available Not Available Not Available ondansetron 4 mg disintegrat ing tablet TAKE 1 TABLET BY MOUTH EVERY 8 HOURS NEEDED FOR NAUSEA active Not Available Not Available No t Available topiramate 100 mg tablet TAKE 1 TABLET BY MOUTH 3 TIMES A DAY 04/28 completed Not Available Not Available Not Available naproxen 500 mg tablet 06/30 completed Not Available Not Available Not Available Wellbutrin 08/12 completed Not Available Not Available Not Available Vitals Date Recorded Body height Body mass index (BMI) Body weight Systolic blood pressure Diastolic blood pressure Provider Name and Address Organization Details Last Updated DateTime 06/30/2023 152.4 cm 28.9 kg/m2 46831.67 g 121 mm[Hg] 84 mm[Hg] Allyn Zimmerman [facility] 3 16:55:23 Date Recorded Body height Body mass index (BMI) Body weight Systolic blood pressure Diastolic blood pressure Provider Name and Address Organization Details Last Updated DateTime 09/09/2023 152.4 cm 28.9 kg/m2 13599.67 g 113 mm[Hg] 75 mm[Hg] Kalie Lopez [facility] 4 14:55:05 Date Recorded Body height Body mass index (BMI) Body weight Systolic blood pressure Diastolic blood pressure Provider Name and Address Organization Details Last Updated DateTime 09/16/2023 152.4 cm 30.3 kg/m2 01033.82 g 132 mm[Hg] 82 mm[Hg] Allyn Zimmerman [facility] 4 17:07:48 Date Recorded Body height Body mass index (BMI) Body weight Systolic blood pressure Diastolic blood pressure Provider Name and Address Organization Details Last Updated DateTime 04/28/2024 152.4 cm 24.2 kg/m2 95069.45 g 108 mm[Hg] 73 mm[Hg] Quynh Mena [facility] 4 17:17:29 Social History Question Answer Notes LastModified by Organizat ion Details LastModified Time Tobacco Smoking Status Never Smoker Ayla schmidt [facility] 06/30/2023 16:38:14 What Is Your Level Of Alcohol Consumption? None Information not available 08/12/2022 Are You Blind Or Do You Have Difficulty Seeing? No Information not available 08/12/2022 What Is Your Level Of Caffeine Consumption? Moderate Information not available 08/12/2022 How Much Tobacco Do You Chew? None Information not available 08/12/2022 In The 14 Days Before Symptom Onset, Have You Had Close Contact With A Laboratory-confir med COVID-19 While That Case Was Ill? No Information not available 08/12/2022 In The 14 Days Before Symptom Onset, Have You Had Close Contact With A Person Who Is Under Investigation For COVID-19 While That Person Was Ill? No Information not available 08/12/2022 Have You Been To An Area Known To Be High Risk For COVID-19? No Information not available 08/12/2022 Are You Deaf Or Do You Have Serious Difficulty Hearing? No Information not available 08/12/2022 What Type Of Diet Are You Following? REGULAR Information not available 08/12/2022 What Is The Highest Grade Or Level Of School You Have Completed Or The Highest Degree You Have Received? 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 Yes Information not available 08/12/2022 Do You Use Protection During Sex? Always Information not available 08/12/2022 Do You Use Your Seat Belt Or Car Seat Routinely? Yes Information not available 08/12/2022 Do You Have Smoke And Carbon Monoxide Detectors In Your Home? Yes Information not available 08/12/2022 At What Age Did You Start Smoking Tobacco? 0 Information not available 08/12/2022 How Much Tobacco Do You Smoke? No Information not available 08/12/2022 Do You Feel Stressed (tense, Restless, Nervous, Or Anxious, Or Unable To Sleep At Night)? [id number] Information not available 08/12/2022 Do You Use Any Illicit Or Recreational Drugs? No Information not available 08/12/2022 Do You Use Sunscreen Routinely? Yes Information not available 08/12/2022 How Many Years Have You Smoked Tobacco? 0 Information not available 08/12/2022 Have You Used IV Drugs? No Information not available 08/12/2022 Sex: Unknown Functional Status Question Answer Note LastModified by Organizat ion Details LastModified Time Do you have difficulty walking or climbing stairs? No [email or web address] Information not available 06/30/2023 Are you able to walk? YESWOREST Information not available 08/12/2022 Are you able to care for yourself? Yes [email or web address] Information not available 06/30/2023 Do you have difficulty dressing or bathing? No [email or web address] Information not available 06/30/2023 What is your exercise level? Occasional Information not available 08/12/2022 Mental Status None recorded. Family History Relationship Description Onset Age of this Age Resolved Age Notes LastModified by Organization Details LastModified Time Mother Heart disease [email or web address] Not available 06/30 16:55:51 Maternal Grandfather Heart disease [email or web address] Not available 06/30 16:55:51 Brother Heart disease [email or web address] Not available 06/30 16:55:51 Medical History Condition Response Allergies (Food, seasonal, environmental ) N Other N Breast Cancer N Drug/Latex Allergies/Reactions Y Blood Transfusion N Lung Disease N Dermatologic Disorders N Defects or Inherited Disease N Breast Problem N Gestational Diabetes N Hematologic disorders N Anesthesia Complications N History of STI N Deep Vein Thrombosis N Polycystic ovary syndrome N Anxiety Disorder Y Autoimmune disease N Arthritis N Polyps N Infertility N History of abnormal pap N Acid Reflux (GERD) N Cancer N Varicosities N Stroke N Neurologic/Epilepsy N Endometriosis Y High Cholesterol N Fibromyalgia N Headaches Y Kidney Disease N Heart Problems N Kidney or Bladder Problems N Thyroid Problems N GI Problems N Eating Disorder N Anemia N Art (IVF or FET) N Psychiatric Illness N Ovarian Cancer N Diabetes N Pulmonary (TB, Asthma) N Hepatitis/Liver Disease N No Past Medical History N Eczema N Urinary Tract Infection N Abuse/Domestic Violence N Asthma N Trauma/Violence N Depression/ depression Y Heart Disease N Pre-Eclampsia N Hypertension N Osteoporosis N Thrombophilias N Gynecological History Statement/Question Response Abnormal Pap N Date of Last Mammogram Date of LMP 09/23/2022 On BCP's at Conception? N N Was last menstrual period normal Y STIs/STDs N HPV Vaccine Y Duration of Flow (days) 4 Current Control Method Hysterectom y Age at First Child 21 Sexually Active? Y Menses Monthly N Date of DEXA bone scan Age of first menstrual cycle 13 Date of Last Pap Smear Sexual Problems? Y Desired Control Method Ablation LMP Definite N Obstetrics History GPAL:G 2 P 1 0 1 1 Type Value Full Term 1 Induced 1 Living 1 Total 2 Past Encounters Encounter ID Performer Location Encounter Start Date Encounter Closed Date Diagnosis/Indication Diagnosis SNOMED-CT Code Diagnosis ICD10 Code Diagnosis Note [id number] Gomez Carrington MD [place] [address] [address] 08/12/2022 14:24:39 08/12/2022 17:09:58 Pain in pelvis 13521993 R10.2 this patient is a 31-year-ol d female presents for follow-up on ruptured ovarian cyst and hemoperito neum from the hospital. Reviewed her CT results from the hospital. We talked about ovulation, the menstrual cycle, ovarian cyst, ruptured ovarian cyst, corpus luteum cyst. She continues to have pain. We agreed to a pelvic ultrasound to determine the nature of what is going on in her pelvis in the pelvic fluid. She has a longstandi ng history of endometrio sis. Her endometrio sis is causing her a great deal of pain again. She has a history of endometrio sis surgery which gave her relief. She is unable to take hormonal contracept ion is due to its effect on her psyche. Spent over 40 minutes face-to-fa ce. More than 50% was counseling . Talked about her endometrio sis. Talked about treatment. Patient is interested diagnostic laparoscop y and treatment of endometrio sis. We are going to get a pelvic ultrasound and have her back to discuss those results and we will discuss a plan for surgery for endometrio sis at that time. [id number] Ronna Chamberlain [place] [address] [address] 08/15/2022 12:10:39 08/15/2022 13:07:48 Cyst of right ovary [id number] N83.291 [id number] Gomez Carrington MD [place] [address] [address] 08/17/2022 12:19:17 08/19/2022 11:47:19 Female sterilization 48767875 Z30.2 Pain in pelvis 45918289 R10.2 Endometrio sis of pelvis 72587054 N80.30 this patient is a 31-year-ol d female presents for follow-up on pelvic pain and endometrio sis. She had ultrasound . We reviewed the ultrasound results. Is essentiall y normal. We talked about her long history of pelvic pain and endometrio sis. She has had 2 surgeries for endometrio sis. She continues to have pain. She has pain with intercours e. She has pain throughout the menstrual cycle it is more problem at the time of her menses. this patient is a 20-year-ol d female with pelvic pain. A pelvic ultrasound was performed. She has found have a large ovarian cyst that appears to have clot within it. We discussed ovarian cyst. We discussed the etiology, natural history, treatment of ovarian cyst. We shared images of her ultrasound . I explained the cystic structure to them. We discussed actual sizes actual size of the pelvic female organs. We spent over 40 minutes face-to-fa ce. More than 50% was counseling . We agreed to observe her ovarian cyst. We agreed to repeat ultrasound 6 weeks. She will follow-up after the ultrasound . We talked about treatment options. We talked about more surgery. Talked about all the medical treatments that she has failed. Talked about surgical treatment options. After detailed discussion the surgeries we agreed to proceed with robotic assisted hysterecto my and salpingect allyssa. And described the procedure the patient in detail. We spent more than 40 minutes face-to-fa ce. More than 50% was counseling . We made decision to Perform surgery. [id number] Gomez Carrington MD [place] [address] [address] 10/11/2022 15:33:47 10/23/2022 14:38:37 Pain in pelvis 85910310 R10.2 Endometrio sis of pelvis 64468863 N80.30 32-year-ol d female with pelvic pain and endometrio sis. We have agreed to perform robotic assisted hysterecto my with bilateral Salpingect allyssa. she understand s risk, benefits, and alternativ es. She has completed the informed consent process is ready to proceed. [id number] Quynh Mena [place] [address] [address] 10/23/2022 10:08:58 10/23/2022 10:10:20 [id number] Gomez Carrington MD [place] [address] [address] 10/26/2022 11:44:06 10/28/2022 13:16:33 Postoperative pain 596781117 G89.18 42-old female presents for postop follow-up. She has no complaints . She still continues to have some postoperat dominic pain. Her incisions are clean dry and intact. Her recovery is normal. She will follow-up [id number] Gomez Carrington MD [place] [address] [address] 06/30/2023 16:38:05 07/01/2023 08:48:45 Pain in pelvis 87908034 R10.2 32-year-ol d female who is in the emergency department for pain of the pelvis follows up with us today. She continues to have severe pain in her right side of her pelvis. It is sharp. It is intermitte nt. It lasts minutes when it is present. It can be debilitati ng. It has been present for a week. It has gotten a little bit better. Emergency department CT scan revealed a corpus luteum cyst on the right. She was tender on the right during exam. We talked about treatment options. We talked about surgery. We talked about ovarian torsion. We talked about observatio n. We agreed to observe. She will return if the pain persists. We agreed to pain management that is short term. We prescribed narcotic pain medication . We spent over 40 minutes with the patient. I was face-to-fa ce with her 40 for 40 minutes. More than 50% was counseling . The she had 2 separate sessions with me. One before the ultrasound in 1 after. We reviewed ultrasound images together. I explained or ovarian cyst. We look the ovarian follicles on her ovaries. There were no findings on ultrasound were congruent with her pain. We will continue to observe. She will return for worsening or persistent pain. [id number] [facility] [address] [address] 06/30/2023 17:24:46 07/01/2023 08:50:28 Cyst of right ovary [id number] N83.291 [id number] HERIBERTO Zamudio [place] [address] [address] 09/09/2023 14:46:10 09/09/2023 16:32:44 Pain in pelvis 41248778 R10.2 This patient is a 32 -year-old female with pelvic pain. We have agreed to complete the evaluation with pelvic ultrasound . The patient will return after the pelvic ultrasound to discuss those findings and to develop a treatment plan. A comprehens dominic history and physical exam was performed today. We spent over 25 minutes face-to-fa ce. The patient was given precaution s. She will contact clinic if pelvic pain increases in frequency or intensity. Also notify clinic of any new symptoms associated with pelvic pain. She does not appear to have an acute pelvic infection today, but was asked to contact us Immediatel y with nausea, vomiting, fever, chills. UA - normaldecl ined STI screenpelv ic u/s ordereddis cussed tylenol/ib uprofen for painprecau tions reviewed Abdominal pain 98255874 R10.9 [id number] [facility] [address] [address] 09/11/2023 10:09:37 09/11/2023 10:58:44 Pain in pelvis 54981956 R10.2 32-year-ol d female who is in the emergency department for pain of the pelvis follows up with us today. She continues to have severe pain in her right side of her pelvis. It is sharp. It is intermitte nt. It lasts minutes when it is present. It can be debilitati ng. It has been present for a week. It has gotten a little bit better. Emergency department CT scan revealed a corpus luteum cyst on the right. She was tender on the right during exam. We talked about treatment options. We talked about surgery. We talked about ovarian torsion. We talked about observatio n. We agreed to observe. She will return if the pain persists. We agreed to pain management that is short term. We prescribed narcotic pain medication . We spent over 40 minutes with the patient. I was face-to-fa ce with her 40 for 40 minutes. More than 50% was counseling . The she had 2 separate sessions with me. One before the ultrasound in 1 after. We reviewed ultrasound images together. I explained or ovarian cyst. We look the ovarian follicles on her ovaries. There were no findings on ultrasound were congruent with her pain. We will continue to observe. She will return for worsening or persistent pain. [id number] Gomez Carrington MD [place] [address] [address] 09/16/2023 15:55:31 09/17/2023 05:57:35 Pain in pelvis 62924692 R10.2 This patient is a 33-year-ol d female with history of pelvic pain and endometrio sis. She has had hysterecto my for endometrio sis. She has some right-side d pain. It is intermitte nt. She has had some ovarian cysts. We spent 20 minutes face-to-fa ce. More than 50% was counseling . We talked about ovarian cysts, endometrio sis, previous surgeries. Possible treatments . We agreed to observe her pelvic pain and ovaries. At this time she is comfortabl e. She is considerin g more treatment. She is considerin g right oophorecto my. Or bilateral oophorecto my. [id number] Gomez Carrington MD [place] [address] [address] 04/28/2024 16:55:41 04/28/2024 17:48:19 Breast lump 69219467 N63.0 33-year-ol d female with breast lump that is likely fibrocysti c change that is pronounced in a specific area. To image the breast. She will return after imaging to determine treatment plan. Spent over 20 minutes on the patient's care in total. Health Concerns Section Related Observation LastModified by Organization Detai ls LastModified Time None Recorded Concern Status LastModified by Organization Details LastModified Time None Recorded Advance Directives Directive None Recorded Payers Encounter Date Sequence Insurance Name Policy Number Policy Zavala Covered Member ID Zavala Member ID Guarantor Name 06/30/2023 1 [employer] (PPO) Derek Soto [id number] Anyi Soto 09/09/2023 1 [facility] HT001 Derek Smarter [id number] Anyi Soto 09/11/2023 1 [facility] HT001 Derek Smarter [id number] Anyi Soto 09/16/2023 1 [facility] Derek Smarter [id number] Anyi Soto 04/28/2024 1 [facility] Derek Soto [id number] Anyi Soto Notes Date Note Type Note Provider Name and Address Organization Details Recorded Time 06/30/2023 text/html 32-year-old femjason adler who is in the emergency department for pain of the pelvis follows up with us today. She continues to have severe pain in her right side of her pelvis. It is sharp. It is intermittent. It lasts minutes when it is present. It can be debilitating. It has been present for a week. It has gotten a little bit better. Emergency department CT scan revealed a corpus luteum cyst on the right. She was tender on the right during exam. We talked about treatment options. We talked about surgery. We talked about ovarian torsion. We talked about observation. We agreed to observe. She will return if the pain persists. We agreed to pain management that is short term. We prescribed narcotic pain medication. We spent over 40 minutes with the patient. I was [id number] with her 40 for 40 minutes. More than 50% was counseling. The she had 2 separate sessions with me. One before the ultrasound in 1 after. We reviewed ultrasound images together. I explained or ovarian cyst. We look the ovarian follicles on her ovaries. There were no findings on ultrasound were congruent with her pain. We will continue to observe. She will return for worsening or persistent pain. Gomez Carrington MD [address], [place], [address], [place] - [facility] 06/30/2023 17:58:39 09/09/2023 text/html 32yo [id number] TLH, BS for endometriosis resents for evaluation of pelvic painsymptoms present x 1 weekright sided, mostly located near rib cage and extends towards back and lower pelvisaching sensation that comes and goes. States it feels similar to pain in the past when she had an ovarian cystno urinary symptomsnormal bowel movements - denies any constipation or diarrheaSA with steady partnerno vaginal discharge, odors, or itching HERIBERTO Zamudio [address], [place], [address], [facility] 09/09/2023 16:30:38 09/16/2023 text/html This patient is a 33-year-old female with history of pelvic pain and endometriosis. She has had hysterectomy for endometriosis. She has some right-sided pain. It is intermittent. She has had some ovarian cysts. We spent 20 minutes [id number]. More than 50% was counseling. We talked about ovarian cysts, endometriosis, previous surgeries. Possible treatments. We agreed to observe her pelvic pain and ovaries. At this time she is comfortable. She is considering more treatment. She is considering right oophorectomy. Or bilateral oophorectomy. Gomez Carrington MD [address], [place], [address], [facility] 09/16/2023 21:03:54 04/28/2024 text/html Breast MassRepor iris bypatient.Location:l eft; upper outer quadrant Onset/Timin day; 1-4 months; gradual Quality:size 2 cm; firm; tender; mobile Severity:moderate Duration:constant Context:performs breast self examination; no prior biopsies; fibrocystic breasts Modifying Factors:touch Associated Symptoms:no fever; no skin redness; no nipple discharge; no breast swelling; no arm pain; no arm swelling; no chest pain Gomez Carrington MD [address], [place], [address], [facility] 04/28/2024 17:45:03 OBGyn Episode Ob Episode Information Episode Created Date Number of Fetuses Patient Bloodtype Patient rh Status Prepregnancy Weight lbs Domestic Partner Domestic Partner Phone Father Name Tube Cleaner Status 08/12/19 23 1 CLOSED Fetus Data First Name Last Name Admitted to NICU Weight (g) Sex Living Outcome Pediatric Complications Fetus ID Race Codes Race Delivery Type M Full Term [id number] Primary Drake Calculation Initial Drake Date Initial Exam Date Initial Exam Provider Initial Ultrasound Date Last Menstrual Period Date Ultra Sound Weeks Gestation 0 Eighteen To Twenty Week Drake Update Ultra Sound Date Fundal Height At Umbil Quickening Date Ultra Sound Latest Weeks Gestation Final Drake Confirmed By Final Drake Confirmed Date Final Drake Date Ultra Sound Latest Days Gestation 0 0 Menstrual History Last Menstrual Date Menses Monthly On Bcp Conception Prior Menses Frequency Hcg Plus Date Menarche Onset Age Delivery Information Delivery Date Delivery Type Labor Anesthesia Weeks Gestation Incision Type Labor Labor Length Hrs Delivered By Post Complications Tubal Sterilization Discharge Date Comments 2 38 Nestor cord wrapped around neck Discharge Information Feeding Method Contraceptive Method Maternal HG B and HCT Levels Ob Episode Information Episode Created Date Number of Fetuses Patient Bloodtype Patient rh Status Prepregnancy Weight lbs Domestic Partner Domestic Partner Phone Father Name Tube Cleaner Status 08/12/19 23 1 CLOSED Fetus Data First Name Last Name Admitted to NICU Weight (g) Sex Living Outcome Pediatric Complications Fetus ID Race Codes Race Delivery Type , Induced [id number] Drake Calculation Initial Drake Date Initial Exam Date Initial Exam Provider Initial Ultrasound Date Last Menstrual Period Date Ultra Sound Weeks Gestation 0 Eighteen To Twenty Week Drake Update Ultra Sound Date Fundal Height At Umbil Quickening Date Ultra Sound Latest Weeks Gestation Final Drake Confirmed By Final Drake Confirmed Date Final Drake Date Ultra Sound Latest Days Gestation 0 0 Menstrual History Last Menstrual Date Menses Monthly On Bcp Conception Prior Menses Frequency Hcg Plus Date Menarche Onset Age Delivery Information Delivery Date Delivery Type Labor Anesthesia Weeks Gestation Incision Type Labor Labor Length Hrs Delivered By Post Complications Tubal Sterilization Discharge Date Comments 0 pt. states took Rx to terminate Discharge Information Feeding Method Contraceptive Method Maternal HG B and HCT Levels
--- OUTSIDE RECORDS SUMMARY | 2024-10-15 13:44 | XMS_ITS | Clinical Summary ---
Author Organization [facility] Address [address] [place] [address] Phone Care Team Providers Care Beauty Therapist Name Role Phone Michael Wray MD Primary Care Provider [phone] Allergies Active Allergy Reactions Criticality Noted Date Comments Metoclopramide nausea High 06/02/2019 Sulfa Antibiotics Rash High 05/01/2020 Wound Dressing Adhesive Rash Low 05/01/2020 Medications Medication Sig Dispensed Refills Start Date End Date Status ALPRAZolam (XANAX) 1 MG tablet 07/10/2021 Active buPROPion SR (WELLBUTRIN SR) 150 MG 12 hr tablet 06/29/2021 Active topiramate (TOPAMAX) 100 MG tablet 07/10/2021 Active Active Problems Problem Noted Date Diagnosed Date Migraine 12/06/2014 Overview (08/13/2021): Date Onset: 12/06/2014 Endometriosis 10/14/2014 Overview (08/13/2021): Date Onset: 10/14/2014 Immunizations Name Administration Dates Next Due Sars-cov-2, Unspecified 11/29/2020 Family History Medical History Relation Comments Hypertension Father Kidney stone Father Relation Status Comments Father Social History Tobacco Use Types Packs/Day Years Used Date Smoking Tobacco: Never Smokeless Tobacco: Never Alcohol Use Standard Drinks/Week Comments Not Currently 0 (1 standard drink = 0.6 oz pur e alcohol) Sex and Gender Information Value Date Recorded Sex Assigned at Not on file Gender Identity Not on file Sexual Orientation Not on file Last Filed Vital Signs Vital Sign Reading Time Taken Comments Blood Pressure 134/72 08/01/2021 10:52 AM ROLLER SHOP UTILITY WORKER Pulse - - Temperature 36.4 C (97.6 F) 08/01/2021 10:52 AM ROLLER SHOP UTILITY WORKER Respiratory Rate 18 08/01/2021 10:52 AM ROLLER SHOP UTILITY WORKER Oxygen Saturation - - Inhaled Oxygen Concentration - - Weight 68.9 kg (152 lb) 08/01/2021 10:52 AM ROLLER SHOP UTILITY WORKER Height 154.9 cm (5' 1 ) 08/01/2021 10:52 AM ROLLER SHOP UTILITY WORKER Body Mass Index 28.72 08/01/2021 10:52 AM ROLLER SHOP UTILITY WORKER Plan of Treatment Health Maintenance Due Date Last Done Comments Influenza Vaccine (#1) 2024 Care Teams Beauty Therapist Relationship Specialty Start Date End Date Michael Wray MD [address] [place] [id number] PCP - General Family Medicine 08/13/21
== END 2024-10-15 13:27 | disposition home or self-care (01) ==
PROVIDERS: PCP Emergency Medicine; Visit Provider Urology
DX: N20.0 Calculus of kidney (principal)
CPT/HCPCS: 74018

== ENCOUNTER 2024-10-31 18:11 | Emergency (ER) | payer OTHER, SELFPAY ==
--- NOTE | ~2024-10-31 | CT_ITS ---
EXAMINATION: CT abdomen pelvis w con DATE: 10/31/2024 20:03 INDICATION: r flank pain TECHNIQUE: Computed tomography (CT) of the abdomen and pelvis was performed with 100 mL Omnipaque-350 intravenous contrast. Automated exposure control and iterative reconstruction technique were employe d. The dose-length product was 278.43 mGy-cm. COMPARISON: 05/14/2024. FINDINGS: Lower thorax: Unremarkable Liver: Normal. Biliary/Gallbladder: Gallbladder is absent. No bile duct dilation. Pancreas: No mass or duct dilation. Spleen: Normal. Adrenals:No mass. Kidneys: No suspicious mass, obstructing stone, or hydronephrosis. Bilateral renal cysts and lesions that are too small to characterize but most likely represent cysts. Punctate bilateral nonobstructing calculi. GI tract: No small or large bowel dilation. Normal appendix. Diverticulosis without diverticulitis. Mesentery/Peritoneum: No ascites, mass, or free air. Retroperitoneum: No mass. Pelvis: Normal urinary bladder. Absent uterus. Normal left ovary. 4.0 cm complex right ovarian cyst w ith a fluid/fluid level. Soft Tissues: Soft tissues and body wall unremarkable. Bones: No acute osseous finding. IMPRESSION: 4.0 cm hemorrhagic right ovarian cyst. Reviewed, dictated and finalized at location K.
--- NOTE | ~2024-10-31 | US_ITS ---
EXAMINATION: US pelvic complete DATE: 10/31/2024 21:44 INDICATION: r/o torsion TECHNIQUE: Multiple transabdominal and endovaginal sonographic images of the pelvis were obtained. COMPARISON: CT abdomen pelvis, same date. FINDINGS: Status post hysterectomy. Right Ovary: 3.6 x 3.5 x 3.0 cm. Vascular flow is present. Complex 3.1 cm right ovarian cystic lesion , with irregular intraluminal material likely representing retracting clot and blood products. Left Ovary: 2.1 x 1.2 x 2.5 cm. Vascular flow is present. Small cysts and/or dominant follicles. There is no free fluid in the pelvis. IMPRESSION: No sonographic evidence of torsion. Complex right ovarian cyst, most likely representing a hemorrhagic cyst or endometrioma. Recommend tr ansabdominal and transvaginal pelvic ultrasound follow-up in 6-12 weeks to evaluate for resolution. Reviewed, dictated and finalized at location K. IMPRESSION: No sonographic evidence of torsion. Complex right ovarian cyst, most likely representing a hemorrhagic cyst or endo metrioma. Recommend transabdominal and transvaginal pelvic ultrasound follow-up in 6-12 weeks to evaluate for resolution.
[2024-10-31 18:11] VITALS: BP 129/79; PULSE 67; RESP 16; TEMP 36.6; O2SAT 98
--- OUTSIDE RECORDS SUMMARY | 2024-10-31 18:13 | XMS_ITS | Encounter Summary ---
Author Organization [facility] Address [address] [place] [address] Care Team Providers Care Tray Server Name Role Phone Michael Wray MD Primary Care Provider [phone] Encounter Details Date Type Department Care Team (Late st Contact Info) Description 07/18/2022 [facility] Message [facility] Health Information Services [address] [place] [address] [facility], [facility] Provider PT NAME CHANGE Social History Tobacco [...] CDT Gender Identity Female 07/18/2022 4:46 AM SILVER DESIGNER Sexual Orientation Straight 07/18/2022 4: 46 AM SILVER DESIGNER COVID-19 Exposure Response Date Recorded In the last 10 days, have yo u been in contact with someone who was confirmed or suspected to have Coronavirus/COVID-19? No / Unsure 07/17/2022 6:19 PM SILVER DESIGNER documented as of this encounter Plan of Treatment Not on file documented as of this encounter Visit Diagnoses Not on filedocumented in this encounter Additional Health Concerns Infection Onset Date Last Indicated Resolved Time MRSA Comment:04/11/2020 +MRSA Back wound 04/14/2020 04/14/2020 documented as of this encounter Care Teams Tray Server Relationship Specialty Start Date End Date Michael Wray MD [address] [place] [address] PCP - General FAMILY PRACTICE 06/02/19 documented as of this encounter
--- OUTSIDE RECORDS SUMMARY | 2024-10-31 18:13 | XMS_ITS | Clinical Summary ---
Author Organization [facility] Address [address] [place] [address] Care Team Providers Care Scanner Operator Name Role Phone Michael Wray MD Primary Care Provider [phone] Allergies Active Allergy Reactions Criticality Noted Date [...] CDT - 10/12/2024 5:31 PM CDT Emergency [facility] Emergency Services [facility] [place] [address] Joe Ochoa MD Flank Pain Discharge Disposition: [...] CDT Gender Identity Female 07/18/2022 4:46 AM DEPARTMENT HEAD COL[employer]GE [employer] UNIVERSITY Sexual Orientation Straight 07/18/2022 4: 46 AM DEPARTMENT HEAD [employer] UNIVERSITY Last Filed Vital Signs Vital Sign Reading [...] 5 Years) and At-Risk Patients (6 to 49 Years) Aged Out No longer eligible based [...] 4:02 PM Narrative 10/12/2024 4:03 PM CDT [address] [place] [address] CT ABDOMEN AND PELVIS WITHOUT CONTRAST Clinical [...] Procedure Note Talib Mcdaniel MD - 10/12/[address] [place] [address] CT ABDOMEN AND PELVIS WITHOUT CONTRAST Clinical [...] (U) BROWN(A) YELLOW 10/12/2024 4:10 PM CDT [facility] TRANSPARENCY SLIGHTLY CLOUDY(A) CLEAR 10/12/2024 4:10 PM CDT [facility] SPECIFIC GRAVITY (U) 1.025 1.010 - 1.025 10/12/2024 4:10 PM CDT [facility] U PH 6.5 5.0 - 8.5 10/12/2024 4:10 PM CDT [facility] LEUKOCYTES (U) NEGATIVE NEGATIVE 10/12/2024 4:10 PM CDT [facility] NITRITES NEGATIVE NEGATIVE 10/12/2024 4:10 PM CDT [facility] PROTEIN RANDOM (U) 1+(A) NEGATIVE 10/12/2024 4:10 PM CDT [facility] GLUCOSE (U) NEGATIVE NEGATIVE 10/12/2024 4:10 PM CDT [facility] KETONES MG/DL (U) NEGATIVE NEGATIVE 10/12/2024 4:10 PM CDT [facility] UROBILINOGEN 0.2 0.2 - 1.0 EU/DL 10/12/2024 4:10 PM CDT [facility] BILIRUBIN (U) 3+(A) NEGATIVE 10/12/2024 4:10 PM CDT [facility] BLOOD (U) 4+(A) NEGATIVE 10/12/2024 4:10 PM CDT [facility] URINE SPECIMEN OBTAINED BY CLEAN CATCH PROCEDURE / Unknown 10/12/2024 3:45 PM CDT us Joe Ochoa MD URINE ORDERABLES Final Result [address] [place] [address], * (ABNORMAL) COMPREHENSIVE METABOLIC PANEL (10/12/2024 3:45 PM CDT) [facility] GLUCOSE 82 70 - 99 MG/DL 10/12/2024 4:53 PM CDT [facility] BUN 15 7 - 18 MG/DL 10/12/2024 4:53 PM CDT [facility] CREATININE S/P/B 0.88 0.50 - 1.20 MG/DL 10/12/2024 4:53 PM CDT [facility] SODIUM S/P/B 140 136 - 145 MMOL/L 10/12/2024 4:53 PM CDT [facility] POTASSIUM S/P/B 3.5 3.5 - 5.1 MMOL/L 10/12/2024 4:53 PM CDT [facility] CHLORIDE S/P/B 107 100 - 108 MMOL/L 10/12/2024 4:53 PM CDT [facility] CO2 22.8 21.0 - 32.0 MMOL/L 10/12/2024 4:53 PM CDT [facility] CALCIUM S/P/B 8.7 8.5 - 10.1 MG/DL 10/12/2024 4:53 PM CDT [facility] BILIRUBIN TOTAL S/P/B 0.4 0.2 - 1.2 MG/DL 10/12/2024 4:53 PM CDT [facility] Comment: THIS ASSAY IS NOT RECOMMENDED FOR PATIENTS UNDERGOING TREATMENT WITH ELTROMBOPAG DUE TO THE POTENTIAL FOR FALSELY ELEVATED RESULTS. TOTAL PROTEIN S/P/B 7.4 6.4 - 8.2 G/DL 10/12/2024 4:53 PM CDT [facility] ALBUMIN S/P/B 3.7 3.4 - 5.0 G/DL 10/12/2024 4:53 PM CDT [facility] AST 14(L) 15 - 37 U/L 10/12/2024 4:53 PM CDT [facility] ALT 16 14 - 55 U/L 10/12/2024 4:53 PM CDT [facility] ALKALINE PHOSPHATASE S/P/B 77 50 - 136 U/L 10/12/2024 4:53 PM CDT [facility] ANION GAP 10.2 5.0 - 15.0 MMOL/L 10/12/2024 4:53 PM CDT [facility] BUN CREATININE RATIO 17.0 6 - 26 10/12/2024 4:53 PM CDT [facility] A/G RATIO 1.0 1.0 - 2.5 RATIO 10/12/2024 4:53 PM CDT [facility] GFR ESTIMATE 89(L) >90 ML/MIN/1.7 3 M2 10/12/2024 4:54 PM CDT [facility] Comment: NOTE: eGFR is not [...] Ochoa MD LABORATORY Edited Result - Final [facility] [address] [place] [address], * CBC W/DIFF AUTOMATED (10/12/2024 3:45 PM CDT) WBC 7.70 4.50 - 11.00 x10'3/uL 10/12/2024 4:10 PM CDT [facility] RBC 4.03 4.00 - 5.20 x10'6/uL 10/12/2024 4:10 PM CDT [facility] HGB 12.6 12.0 - 16.0 G/DL 10/12/2024 4:10 PM CDT [facility] HCT 38.0 38.0 - 48.0 % 10/12/2024 4:10 PM CDT [facility] MCV 94.3 80.0 - 100.0 FL 10/12/2024 4:10 PM CDT [facility] MCH 31.3 26.0 - 34.0 PG 10/12/2024 4:10 PM CDT [facility] MCHC 33.2 31.0 - 37.0 G/DL 10/12/2024 4:10 PM CDT [facility] RDW 12.9 11.6 - 14.8 % 10/12/2024 4:10 PM CDT [facility] PLT 194 130 - 400 x10'3/uL 10/12/2024 4:10 PM CDT [facility] MPV 11.2 7.0 - 12.0 FL 10/12/2024 4:10 PM CDT [facility] CBC COMMENT AUTOMATED RBC MORPHOLOGY AND PLATELET EVALUATION NORMAL 10/12/2024 4:10 PM CDT [facility] NEUTROPHILS % 58.3 40.0 - 74.0 % 10/12/2024 4:10 PM CDT [facility] LYMPHOCYTES % 34.3 14.0 - 46.0 % 10/12/2024 4:10 PM CDT [facility] MONOCYTES % 5.1 4.0 - 13.0 % 10/12/2024 4:10 PM CDT [facility] EOSINOPHILS 1.8 0.0 - 7.0 % 10/12/2024 4:10 PM CDT [facility] BASOPHILS 0.4 0.0 - 3.0 % 10/12/2024 4:10 PM CDT [facility] IMMATURE GRANS % 0.1 0.0 - 0.43 % 10/12/2024 4:10 PM CDT [facility] NRBC % 0.0 % 10/12/2024 4:10 PM CDT [facility] ABS. NEUTROPHILS TOTAL 4.49 1.69 - 7.81 x10'3/uL 10/12/2024 4:10 PM CDT [facility] ABS. LYMPHOCYTES 2.64 0.21 - 5.42 x10'3/uL 10/12/2024 4:10 PM CDT [facility] ABS. MONOCYTES 0.39 0.04 - 1.37 x10'3/uL 10/12/2024 4:10 PM CDT [facility] ABS. EOSINOPHILS 0.14 0.00 - 0.68 x10'3/uL 10/12/2024 4:10 PM CDT [facility] ABS. BASOPHILS 0.03 0.00 - 0.08 x10'3/uL 10/12/2024 4:10 PM CDT [facility] ABS. IMMATURE GRANULOCYTES 0.01 0.00 - 0.06 x10'3/uL 10/12/2024 4:10 PM CDT [facility] ABS. NUCLEATED RBC'S 0.00 0.00 - 0.01 x10'3/uL 10/12/2024 4:10 PM CDT [facility] 10/12/2024 3:45 PM CDT us Joe Ochoa MD LABORATORY Final Result Performing Organization Address City/State/[facility] Co de Phone Number [facility] [address] [place] [address], from Last 3 Months Additional Health Concerns Infection Onset Date Last Indicated MRSA Comment:04/11/2020 +MRSA Back wound 04/14/2020 04/14/2020 Insurance ALLIED Care Teams Scanner Operator Relationship Specialty Start Date End Date Michael Wray MD [address] [place] [address] PCP - General FAMILY PRACTICE 06/02/19
--- OUTSIDE RECORDS SUMMARY | 2024-10-31 18:13 | XMS_ITS | Clinical Summary ---
Author Organization [facility] Address [address] [place] [phone] Phone Care Team Providers Care Resource Efficiency Manager Name Role Phone Michael Wray MD Primary Care Provider [phone] Allergies Active Allergy Reactions Criticality Noted Date Comments Metoclopramide nausea High 06/02/2019 Sulfa Antibiotics Rash High 05/01/2020 Wound Dressing Adhesive Rash Low 05/01/2020 Medications ALPRAZolam (XANAX) 1 MG tablet 07/10/2021 Active buPROPion SR (WELLBUTRIN SR) 150 MG 12 hr tablet 06/29/2021 Active topiramate (TOPAMAX) 100 MG tablet 07/10/2021 Active Active Problems Problem Noted Date Diagnosed Date Migraine 12/06/2014 Overview (08/13/2021): Date Onset: 12/06/2014 Endometriosis 10/14/2014 Overview (08/13/2021): Date Onset: 10/14/2014 Immunizations Immunization Administration Dates Next Due Sars-cov-2, Unspecified 11/29/2020 Family History Medical History Relation Comments Hypertension Father Kidney stone Father Relation Status Comments Father Social History Tobacco Use Types Packs/Day Years Used Date Smoking Tobacco: Never Smokeless Tobacco: Never Alcohol Use Standard Drinks/Week Comments Not Currently 0 (1 standard drink = 0.6 oz pur e alcohol) Comments Unknown Sex and Gender Information Value Date Recorded Sex Assigned at Not on file Legal Sex Female 11:22 AM MST Gender Identity Not on file Sexual Orientation Not on file Last Filed Vital Signs Vital Sign Reading Time Taken Comments Blood Pressure 134/72 08/01/2021 10:52 AM SOLAR SALES REPRESENTATIVE AND ASSESSOR Pulse - - Temperature 36.4 C (97.6 F) 08/01/2021 10:52 AM SOLAR SALES REPRESENTATIVE AND ASSESSOR Respiratory Rate 18 08/01/2021 10:52 AM SOLAR SALES REPRESENTATIVE AND ASSESSOR Oxygen Saturation - - Inhaled Oxygen Concentration - - Weight 68.9 kg (152 lb) 08/01/2021 10:52 AM SOLAR SALES REPRESENTATIVE AND ASSESSOR Height 154.9 cm (5' 1 ) 08/01/2021 10:52 AM SOLAR SALES REPRESENTATIVE AND ASSESSOR Body Mass Index 28.72 08/01/2021 10:52 AM SOLAR SALES REPRESENTATIVE AND ASSESSOR Plan of Treatment Health Maintenance Due Date Last Done Comments Influenza Vaccine (Season Ended) 2025 Insurance [employer] Care Teams Resource Efficiency Manager Relationship Specialty Start Date End Date Michael Wray MD [address] [place] [address] PCP - General Family Medicine 08/13/21
--- OUTSIDE RECORDS SUMMARY | 2024-10-31 18:14 | XMS_ITS | Data Portability ---
Author Organization [facility] [place] Address [address] [place] [address] Care Team Providers Care Cleaning And Washing Equipment Operator Name Role Phone MARICEL RODRIGUEZ Primary Care Provider [phone] Assessment No assessment recorded. Plan of Treatment Reminders Order Date Submit Date Provider Last Modified By Organization Details Last Modified Time Details Appointments U/S F/U 2024 03:30P Effie CARRINGTON MD Not available Not available Not available Lab None recorded. Referral None recorded. Procedures None recorded. Surgeries None recorded. Imaging US, transvagi nal 2024 025 [email or web address] [place], [address], [place], [address], 10/31/2024 09:04:55 US, transvagi nal 2023 024 [email or web address] [place], [address], [place], [address], 09/11/2023 19:59:08 Medication Orders hydrocodo ne 5 mg-acetam inophen 325 mg tablet 2024 025 TARA [id number], [address] [place], [address], 10/23/2024 13:01:37 oxycodone -acetamin ophen 5 mg-325 mg tablet 2023 024 [email or web address] [id number], [address] [place], [address], 04/28/2024 17:17:49 Patient TargetsNo targets recorded. Patient InstructionsNo [...] Resul ting Lab: [facility] [address] [facility] [address] Tel: CULTU RE ----- ----- ----- --- No growt h in 1 day (dete ction level of 10,00 0 colon ies / ml.) Not Available [facility] (Lab) [address] [facility], [place], [address], 09/10/2023 19:49:46 09/09/19 24 09/09/2023 urina lysis , dipst ick pH Not Available [place] [address], [place], [address], 09/09/2023 15:39:32 09/11/19 24 09/11/2023 US, trans vagin al No observ ation record ed. [email or web address] [place] [address], [place], [address], 09/11/2023 11:08:46 09/11/19 24 09/11/2023 US, trans vagin al No observ ation record ed. aric Mckeon [address], [place], [address], 09/12/2023 09:25:02 05/14/20 24 05/14/2024 MAMMO , diagn ostic , digit al, bilat eral No observ ation record ed. [facility] (Mammography) [address], [place], [address], 07/20/2024 15:33:44 10/30/19 25 10/29/2024 US, trans vagin al No observ ation record ed. [facility] [address], [place], [address], 10/29/2024 14:33:26 10/30/19 25 10/29/2024 US, trans vagin al No observ ation record ed. [email or web address] [address], [place], [address], 10/29/2024 10:35:39 Result Notes None recorded. Problems Name Problem SNOMED Code Status Onset Date Resolution Date Notes Provider Name and Address Organization Details Recorded Time Migraine 19795674 Active 2022 Allyn schmidt [facility] 3 16:56:24 Mixed anxiety and depressive disorder 249106459 Active 2022 Allyn schmidt [facility] 3 16:56:38 Problem Notes None recorded. Procedures Surgical History Date Name Laterality Status Provider Name and Address Organization Details Recorded Time 10/23/19 23 ROBOTIC ASSISTED HYSTERECTOMY WITH SALPINGECTOMY (SURG) completed Natalia Storm [facility] 10/23/2022 10:32:32 07/14/19 20 termination of completed Allyn Zimmerman [facility] 06/30/2023 16:58:54 07/14/19 15 Endometrial Ablation completed Allyn Zimmerman [facility] 06/30/2023 16:58:35 07/14/19 13 extraction of wisdom tooth completed Allyn Zimmerman [facility] 09/16/2023 17:08:45 12/02/19 12 Caesarean Section completed Allyn Zimmerman [facility] 06/30/2023 16:58:31 Imaging Results Imaging Date Name Status LastModified by Organization Details LastModified Time 09/11/2023 US, transvaginal completed [email or web address] gilman [address], [place], [address], 09/11/2023 11:08:46 09/11/2023 US, transvaginal completed [email or web address] Linda [address], [place], [address], 09/12/2023 09:25:02 05/14/2024 MAMMO, diagnostic, digital, bilateral completed [address] (Mammography) [address], [place], [address], 07/20/2024 15:33:44 10/29/2024 US, transvaginal completed jdck Deacon gilman [address], [place], [address], 10/29/2024 14:33:26 10/29/2024 US, transvaginal active [email or web address] [address], [place], [address], 10/29/2024 10:35:39 Procedure Notes None recorded. Medical Equipment None Reported. Allergies Allergen ID Allergen Name Allergen Category Reaction Reaction Severity Criticality Documentation Date Start Date Code Code System Note Provider Name and Address Organization Details Recorded Time Bactrim medicatio n rash Not available Not available 08/12/2022 85710 9 RxNorm Jennifer schmidt [facility] 14:39:20 13054 Reglan medicatio n nausea Not available Not available 08/12/2022 9230 RxNorm Jennifer schmidt [facility] 14:39:20 73090 Substance with sulfonami de structure and antibacte rial mechanism of action (substanc e) medicatio n Not available Not available Not available 08/12/2022 73933 8003 SNOMED Jennifer Lindsey [facility] 3 15:05:41 47654 adhesive environme nt,medica tion Not available Not available Not available 08/12/2022 44492 UNK [facility] 15:05:49 Medications Name Sig Start Date Stop Date Status Note LastModified by Organization Details LastModified Time bupropion HCl SR 150 mg tablet,12 hr sustained-r elease TAKE 1 TABLET BY MOUTH TWICE A DAY 09/08 completed Not Available Not Available Not Available azithromyci n 250 mg tablet 06/30 completed Not Available Not Available Not Available hydrocodone 5 mg-acetamin ophen 325 mg tablet TAKE 1 TABLET BY MOUTH EVERY 6 HOURS active Not Available Not Available No t Available ondansetron HCl 4 mg tablet TAKE [...] Not Available Not Available No t Available Xanax 1 mg tablet Take 1 tablet as needed by oral route. active Not Available Not Available No t Available naproxen 500 mg tablet 06/30 completed Not Available Not Available Not Available Topamax 100 mg tablet Take 1 tablet 3 times a day by oral route. active Not Available Not Available No t Available Wellbutrin 08/12 completed Not Available Not Available Not Available Vitals Date Recorded Body height Body mass index (BMI) Body weight Systolic blood pressure Diastolic blood pressure Provider Name and Address Organization Details Last Updated DateTime 09/16/2023 152.4 cm 30.3 kg/m2 35986.82 g 132 mm[Hg] 82 mm[Hg] Allyn Zimmerman [facility] 4 17:07:48 Date Recorded Body height Body mass index (BMI) Body weight Systolic blood pressure Diastolic blood pressure Provider Name and Address Organization Details Last Updated DateTime 04/28/2024 152.4 cm 24.2 kg/m2 32207.45 g 108 mm[Hg] 73 mm[Hg] Quynh Mena [facility] 4 17:17:29 Date Recorded Body height Body mass index (BMI) Body weight Systolic blood pressure Diastolic blood pressure Provider Name and Address Organization Details Last Updated DateTime 10/23/2024 152.4 cm 27.3 kg/m2 83053.93 g 113 mm[Hg] 77 mm[Hg] Phyllis Iris [facility] 5 12:05:00 Social History Question Answer Notes LastModified by Organizat ion Details LastModified Time Tobacco Smoking Status Never Smoker Ayla De [facility]iz [facility] 06/30/2023 16:38:14 What Is Your Level [...] Or The Highest Degree You Have Received? [id number] Information not available 08/12/2022 What Is Your [...] Anxious, Or Unable To Sleep At Night)? [id number] Information not available 08/12/2022 Do You Use [...] have difficulty walking or climbing stairs? No [email or web address] Information not available 06/30/2023 Are you able to walk? YESWOREST Information not available 08/12/2022 Are you able to care for yourself? Yes Information not available 06/30/2023 Do you have difficulty dressing or bathing? No [email or web address] Information not available 06/30/2023 What is your exercise level? Occasional Information not available 08/12/2022 Mental Status None recorded. Family History Relationship Description Onset Age of this Age Resolved Age Notes LastModified by Organization Details LastModified Time Mother Heart disease Not available 06/30 16:55:51 Maternal Grandfather Heart disease [email or web address] Not available 06/30 16:55:51 Brother Heart disease [email or web address] Not available 06/30 16:55:51 Medical History Condition Response Allergies (Food, seasonal, environmental ) N Other N Drug/Latex Allergies/Reactions Y Blood Transfusion N Breast Cancer N Dermatologic Disorders N Lung Disease N Defects or Inherited Disease N Breast Problem N Gestational Diabetes N Hematologic disorders N Anesthesia Complications N History of STI N Deep Vein Thrombosis N Polycystic ovary syndrome N Anxiety Disorder Y Autoimmune disease N Arthritis N Polyps N Infertility N Acid Reflux (GERD) N History of abnormal pap N Cancer N Varicosities N Stroke N Neurologic/Epilepsy N Endometriosis Y High Cholesterol N Fibromyalgia N Headaches Y Kidney Disease N Heart Problems N Thyroid Problems N Kidney or Bladder Problems N GI Problems N Eating Disorder [...] SNOMED-CT Code Diagnosis ICD10 Code Diagnosis Note [id number] Gomez Carrington MD [place] [address] [address] 08/12/2022 14:24:39 08/12/2022 17:09:58 Pain in pelvis 27351829 R10.2 this patient is a 31-year-ol d [...] surgery for endometrio sis at that time. [id number] Ronna [facility] [address] [address] 08/15/2022 12:10:39 08/15/2022 13:07:48 Cyst of right ovary 9103771566 [id number] N83.291 [id number] Gomez Carrington MD [place] [address] [address] 08/17/2022 12:19:17 08/19/2022 11:47:19 Female sterilization 05631461 Z30.2 Pain in pelvis 91162697 R10.2 Endometrio sis of pelvis 66200493 N80.30 this patient is a 31-year-ol d [...] . We made decision to Perform surgery. [id number] Gomez Carrington MD [place] [address] [address] 10/11/2022 15:33:47 10/23/2022 14:38:37 Pain in pelvis 25511562 R10.2 Endometrio sis of pelvis 29610011 N80.30 32-year-ol d female with pelvic pain and endometrio sis. We have agreed to perform robotic assisted hysterecto my with bilateral Salpingect allyssa. she understand s risk, benefits, and alternativ es. She has completed the informed consent process is ready to proceed. [id number] Quynh Mena [place] [address] [address] 10/23/2022 10:08:58 10/23/2022 10:10:20 [id number] Gomez Carrington MD [place] [address] [address] 10/26/2022 11:44:06 10/28/2022 13:16:33 Postoperative pain 463516006 G89.18 42-old female presents for postop follow-up. She has no complaints . She still continues to have some postoperat dominic pain. Her incisions are clean dry and intact. Her recovery is normal. She will follow-up [id number] Gomez Carrington MD [place] [address] [address] 06/30/2023 16:38:05 07/01/2023 08:48:45 Pain in pelvis 39109744 R10.2 32-year-ol d female who is in [...] will return for worsening or persistent pain. [id number] Ronna Chamberlain [place] [address] [address] 06/30/2023 17:24:46 07/01/2023 08:50:28 Cyst of right ovary 9846897883 3041321 N83.291 [id number] HERIBERTO Zamudio [place] [address] [address] 09/09/2023 14:46:10 09/09/2023 16:32:44 Pain in pelvis 22320449 R10.2 This patient is a 32 -year-old [...] uprofen for painprecau tions reviewed Abdominal pain 93057291 R10.9 [id number] Ronna Chamberlain [place] [address] [address] 09/11/2023 10:09:37 09/11/2023 10:58:44 Pain in pelvis 07603993 R10.2 32-year-ol d female who is in [...] will return for worsening or persistent pain. [id number] Gomez Carrington MD [place] [address] [address] 09/16/2023 15:55:31 09/17/2023 05:57:35 Pain in pelvis 41192545 R10.2 This patient is a 33-year-ol d [...] right oophorecto my. Or bilateral oophorecto my. [id number] Gomez Carrington MD [place] [address] [address] 04/28/2024 16:55:41 04/28/2024 17:48:19 Breast lump 40854325 N63.0 33-year-ol d female with breast lump that is likely fibrocysti c change that is pronounced in a specific area. To image the breast. She will return after imaging to determine treatment plan. Spent over 20 minutes on the patient's care in total. [id number] Gomez Carrington MD [place] [address] [address] 10/23/2024 11:52:56 10/23/2024 13:06:06 Pain in pelvis 67955957 R10.2 To obtain pelvic ultrasound and to return to see me. I spent over 20 minutes on the patient's care in total. Cyst of ovary 04968939 N 83.209 [id number] [facility] [address] [address] 10/29/2024 09:37:55 10/29/2024 10:32:24 Pain in pelvis 48094193 R10.2 To obtain pelvic ultrasound and to return to see me. I spent over 20 minutes on the patient's care in total. Health Concerns Section Related Observation LastModified by Organization Detai ls LastModified Time None Recorded Concern Status LastModified by Organization Details LastModified Time None Recorded Advance Directives Directive None Recorded Payers Encounter Date Sequence Insurance Name Policy Number Policy Zavala Covered Member ID Zavala Member ID Guarantor Name 09/11/2023 1 [facility] Derek Chou Charles [id number] [facility] 09/16/2023 1 [facility] Derek Chou Charles [id number] Anyi [employer]ou [place] 04/28/2024 1 [facility] Derek Chou Charles [id number] [facility] 10/23/2024 1 [facility] Derek Chou Charles [id number] [facility] 10/29/2024 1 [facility] Derek Chou Charles [id number] [facility] Notes Date Note Type Note Provider Name and Address Organization Details Recorded Time 09/16/2023 text/html This patient is a 33-year-old female with history of pelvic pain and endometriosis. She has had hysterectomy for endometriosis. She has some right-sided pain. It is intermittent. She has had some ovarian cysts. We spent 20 minutes [id number]. More than 50% was counseling. We talked about ovarian cysts, endometriosis, previous surgeries. Possible treatments. We agreed to observe her pelvic pain and ovaries. At this time she is comfortable. She is considering more treatment. She is considering right oophorectomy. Or bilateral oophorectomy. Gomez Carrington MD [address], [place], [address], [facility] 09/16/2023 21:03:54 04/28/2024 text/html Breast MassReported bypatient.Location :left; upper outer quadrant Onset/Timin day; 1-4 months; gradual Quality:size 2 cm; firm; tender; mobile Severity:moderate Duration:constant Context:performs breast self examination; no prior biopsies; fibrocystic breasts Modifying Factors:touch Associated Symptoms:no fever; no skin redness; no nipple discharge; no breast swelling; no arm pain; no arm swelling; no chest pain Gomez Carrington MD [address], [place], [address], [facility] 04/28/2024 17:45:03 10/23/2024 text/html . this patient i s a 34-year-old female with pelvic pain. She has a longstanding history ovarian cyst. Her pain is on the low right side and into her lower back. It involves the pelvis. She denies any abnormal vaginal bleeding. She denies abnormal vaginal discharge. She denies any nausea, vomiting, fever, chills. She denies any chest pain or shortness of breath. Gomez Carrington MD [address], [place], [address], [facility] 10/23/2024 13:04:41 OBGyn Episode Ob Episode Information Episode Created Date Number of Fetuses Patient Bloodtype Patient rh Status Prepregnancy Weight lbs Domestic Partner Domestic Partner Phone Father Name Perinatal Social Worker Status 08/12/19 23 1 CLOSED Fetus Data First Name Last Name Admitted to NICU Weight (g) Sex Living Outcome Pediatric Complications Fetus ID Race Codes Race Delivery Type M Full Term [id number] Primary Drake Calculation Initial Drake Date Initial [...] Domestic Partner Domestic Partner Phone Father Name Perinatal Social Worker Status 08/12/19 23 1 CLOSED Fetus Data First Name Last Name Admitted to NICU Weight (g) Sex Living Outcome Pediatric Complications Fetus ID Race Codes Race Delivery Type , Induced [id number] Drake Calculation Initial Drake Date Initial Exam [...]
[2024-10-31 18:51] LABS: BEDSIDEPREGUCG Negative (Negative)
[2024-10-31 18:56] LABS: Basophils Absolute Auto 0.1 K/mm3 (0.0-0.1); Basophils Percent Auto 0.9 % (0.2-1.2); Eosinophils Absolute Auto 0.3 K/mm3 (0-0.3); Eosinophils Percent Auto 3.6 % (0-4.4); Hematocrit 39.7 % (37.0-47.0); Hemoglobin 13.1 g/dL (12.0-15.0); Immature Granulocyte Absolute 0.02 K/mm3 (0.00-0.031); Immature Granulocyte Percent A 0.3 % (0-0.5); Lymphocytes Absolute Auto 2.51 K/mm3 (0.9-3.2); Lymphocytes Percent Auto 32.3 % (18.3-44.2); Mean Corpuscular Hemoglobin 32.2 pg (26-34); Mean Corpuscular Volume 97.5 fl (80-100); Mean Platelet Volume 10.8 fl (7.4-10.4); Monocytes Absolute Auto 0.4 K/mm3 (0.1-0.6); Monocytes Percent Auto 5.3 % (2.6-8.5); Neutrophils Absolute Auto 4.5 K/mm3 (1.3-6.7); Neutrophils Percent Auto 57.6 % (45.5-73.1); Platelet Count Result 242 k/mm3 (150-375); Red Blood Count 4.07 M/mm3 (4.2-5.4); Red Cell Distribution Width 13.1 % (11.5-14.5); White Blood Count 7.8 K/mm3 (4.5-10.0)
[2024-10-31 19:05] LABS: Add Urine Microscopic? YES; Appearance Urine Clear (Clear); Bacteria Urine None Seen /hpf; Bilirubin Urine Negative (Negative); Blood Urine 3+ (Negative); Color Urine Yellow (Yellow); Glucose Urine UA Negative (Negative); Ketones Urine Negative (Negative); Leukocyte Esterase Ur Negative LEU/UL (Negative); Nitrate Urine Negative (Negative); Non Pathogenic Casts 0-2; Protein Urine Negative (Negative); RBC Urine >100 /hpf (0-2); Specific Grav Ur 1.013 (1.001-1.035); Squamous Epithelial Cell Urine Occasional /hpf (Few); WBC Urine 0-5 /hpf (0-3); pH Urine 6.5 (5.0-9.0)
[2024-10-31 19:07] LABS: Alanine Aminotransferase 27 U/L (6-35); Albumin Level 4.3 g/dL (3.5-5.1); Alkaline Phosphatase 68 U/L (38-126); Anion Gap 11 mmol/L (4-12); Aspartate Amino Transferase 24 U/L (14-36); Bilirubin,Total 0.3 mg/dL (0.2-1.3); Blood Urea Nitrogen 9 mg/dL (7-17); Calcium 8.9 mg/dL (8.4-10.2); Carbon Dioxide 21 mmol/L (22-30); Chloride 109 mmol/L (98-107); Estimated CRCL calculation 70 ml/min; Estimated Glomerular Filt Rate > 60; Glucose 87 mg/dL (65-110); Lipase 188 U/L (23-300); Potassium 3.5 mmol/L (3.4-5.0); Sodium 141 mmol/L (137-145)
--- OUTSIDE RECORDS SUMMARY | 2024-10-31 19:20 | XMS_ITS | Clinical Summary ---
Author Organization [facility] utielena Address [address] [place] [address] Phone Care Team Providers Care Roller Leveler Operator Name Role Phone Michael Wray MD Primary Care Provider [phone] Allergies Active Allergy Reactions Criticality Noted Date [...] Comments Blood Pressure 134/72 08/01/2021 10:52 AM INSOLE RASPER Pulse - - Temperature 36.4 C (97.6 F) 08/01/2021 10:52 AM INSOLE RASPER Respiratory Rate 18 08/01/2021 10:52 AM INSOLE RASPER Oxygen Saturation - - Inhaled Oxygen Concentration - - Weight 68.9 kg (152 lb) 08/01/2021 10:52 AM INSOLE RASPER Height 154.9 cm (5' 1 ) 08/01/2021 10:52 AM INSOLE RASPER Body Mass Index 28.72 08/01/2021 10:52 AM INSOLE RASPER Plan of Treatment Health Maintenance Due Date Last Done Comments Influenza Vaccine (Season Ended) 2025 Insurance [employer] Care Teams Roller Leveler Operator Relationship Specialty Start Date End Date Michael Wray MD [address] [place] [address] PCP - General Family Medicine 08/13/21
--- OUTSIDE RECORDS SUMMARY | 2024-10-31 19:20 | XMS_ITS | Clinical Summary ---
Author Organization [facility] Address [address] [place] [address] Care Team Providers Care Social Science Teacher Name Role Phone Michael Wray MD Primary Care Provider [phone] Allergies Active Allergy Reactions Criticality Noted Date [...] CDT - 10/12/2024 5:31 PM CDT Emergency [facility] Emergency Services [facility] [place] [address] Joe Ochoa MD Flank Pain Discharge Disposition: [...] CDT Gender Identity Female 07/18/2022 4:46 AM HEALTH INFORMATION INTERNSHIP Sexual Orientation Straight 07/18/2022 4: 46 AM HEALTH INFORMATION INTERNSHIP Last Filed Vital Signs Vital Sign Reading [...] 4:02 PM Narrative 10/12/2024 4:03 PM CDT [address] [place] [address] CT ABDOMEN AND PELVIS WITHOUT CONTRAST Clinical [...] Procedure Note Talib Mcdaniel MD - 10/12/[address] [place] [address] CT ABDOMEN AND PELVIS WITHOUT CONTRAST Clinical [...] (U) BROWN(A) YELLOW 10/12/2024 4:10 PM CDT [facility] TRANSPARENCY SLIGHTLY CLOUDY(A) CLEAR 10/12/2024 4:10 PM CDT [facility] SPECIFIC GRAVITY (U) 1.025 1.010 - 1.025 10/12/2024 4:10 PM CDT [facility] U PH 6.5 5.0 - 8.5 10/12/2024 4:10 PM CDT [facility] LEUKOCYTES (U) NEGATIVE NEGATIVE 10/12/2024 4:10 PM CDT [facility] NITRITES NEGATIVE NEGATIVE 10/12/2024 4:10 PM CDT [facility] PROTEIN RANDOM (U) 1+(A) NEGATIVE 10/12/2024 4:10 PM CDT [facility] GLUCOSE (U) NEGATIVE NEGATIVE 10/12/2024 4:10 PM CDT [facility] KETONES MG/DL (U) NEGATIVE NEGATIVE 10/12/2024 4:10 PM CDT [facility] UROBILINOGEN 0.2 0.2 - 1.0 EU/DL 10/12/2024 4:10 PM CDT [facility] BILIRUBIN (U) 3+(A) NEGATIVE 10/12/2024 4:10 PM CDT [facility] BLOOD (U) 4+(A) NEGATIVE 10/12/2024 4:10 PM CDT [facility] URINE SPECIMEN OBTAINED BY CLEAN CATCH PROCEDURE / Unknown 10/12/2024 3:45 PM CDT us Joe Ochoa MD URINE ORDERABLES Final Result [address] [place] [address], * (ABNORMAL) COMPREHENSIVE METABOLIC PANEL (10/12/2024 3:45 PM CDT) [facility] GLUCOSE 82 70 - 99 MG/DL 10/12/2024 4:53 PM CDT [facility] BUN 15 7 - 18 MG/DL 10/12/2024 4:53 PM CDT [facility] CREATININE S/P/B 0.88 0.50 - 1.20 MG/DL 10/12/2024 4:53 PM CDT [facility] SODIUM S/P/B 140 136 - 145 MMOL/L 10/12/2024 4:53 PM CDT [facility] POTASSIUM S/P/B 3.5 3.5 - 5.1 MMOL/L 10/12/2024 4:53 PM CDT [facility] CHLORIDE S/P/B 107 100 - 108 MMOL/L 10/12/2024 4:53 PM CDT [facility] CO2 22.8 21.0 - 32.0 MMOL/L 10/12/2024 4:53 PM CDT [facility] CALCIUM S/P/B 8.7 8.5 - 10.1 MG/DL 10/12/2024 4:53 PM CDT [facility] BILIRUBIN TOTAL S/P/B 0.4 0.2 - 1.2 MG/DL 10/12/2024 4:53 PM CDT [facility] Comment: THIS ASSAY IS NOT RECOMMENDED FOR PATIENTS UNDERGOING TREATMENT WITH ELTROMBOPAG DUE TO THE POTENTIAL FOR FALSELY ELEVATED RESULTS. TOTAL PROTEIN S/P/B 7.4 6.4 - 8.2 G/DL 10/12/2024 4:53 PM CDT [facility] ALBUMIN S/P/B 3.7 3.4 - 5.0 G/DL 10/12/2024 4:53 PM CDT [facility] AST 14(L) 15 - 37 U/L 10/12/2024 4:53 PM CDT [facility] ALT 16 14 - 55 U/L 10/12/2024 4:53 PM CDT [facility] ALKALINE PHOSPHATASE S/P/B 77 50 - 136 U/L 10/12/2024 4:53 PM CDT [facility] ANION GAP 10.2 5.0 - 15.0 MMOL/L 10/12/2024 4:53 PM CDT [facility] BUN CREATININE RATIO 17.0 6 - 26 10/12/2024 4:53 PM CDT [facility] A/G RATIO 1.0 1.0 - 2.5 RATIO 10/12/2024 4:53 PM CDT [facility] GFR ESTIMATE 89(L) >90 ML/MIN/1.7 3 M2 10/12/2024 4:54 PM CDT [facility] Comment: NOTE: eGFR is not [...] Ochoa MD LABORATORY Edited Result - Final [facility] [address] [place] [address], * CBC W/DIFF AUTOMATED (10/12/2024 3:45 PM CDT) WBC 7.70 4.50 - 11.00 x10'3/uL 10/12/2024 4:10 PM CDT [facility] RBC 4.03 4.00 - 5.20 x10'6/uL 10/12/2024 4:10 PM CDT [facility] HGB 12.6 12.0 - 16.0 G/DL 10/12/2024 4:10 PM CDT [facility] HCT 38.0 38.0 - 48.0 % 10/12/2024 4:10 PM CDT [facility] MCV 94.3 80.0 - 100.0 FL 10/12/2024 4:10 PM CDT [facility] MCH 31.3 26.0 - 34.0 PG 10/12/2024 4:10 PM CDT [facility] MCHC 33.2 31.0 - 37.0 G/DL 10/12/2024 4:10 PM CDT [facility] RDW 12.9 11.6 - 14.8 % 10/12/2024 4:10 PM CDT [facility] PLT 194 130 - 400 x10'3/uL 10/12/2024 4:10 PM CDT [facility] MPV 11.2 7.0 - 12.0 FL 10/12/2024 4:10 PM CDT [facility] CBC COMMENT AUTOMATED RBC MORPHOLOGY AND PLATELET EVALUATION NORMAL 10/12/2024 4:10 PM CDT [facility] NEUTROPHILS % 58.3 40.0 - 74.0 % 10/12/2024 4:10 PM CDT [facility] LYMPHOCYTES % 34.3 14.0 - 46.0 % 10/12/2024 4:10 PM CDT [facility] MONOCYTES % 5.1 4.0 - 13.0 % 10/12/2024 4:10 PM CDT [facility] EOSINOPHILS 1.8 0.0 - 7.0 % 10/12/2024 4:10 PM CDT [facility] BASOPHILS 0.4 0.0 - 3.0 % 10/12/2024 4:10 PM CDT [facility] IMMATURE GRANS % 0.1 0.0 - 0.43 % 10/12/2024 4:10 PM CDT [facility] NRBC % 0.0 % 10/12/2024 4:10 PM CDT [facility] ABS. NEUTROPHILS TOTAL 4.49 1.69 - 7.81 x10'3/uL 10/12/2024 4:10 PM CDT [facility] ABS. LYMPHOCYTES 2.64 0.21 - 5.42 x10'3/uL 10/12/2024 4:10 PM CDT [facility] ABS. MONOCYTES 0.39 0.04 - 1.37 x10'3/uL 10/12/2024 4:10 PM CDT [facility] ABS. EOSINOPHILS 0.14 0.00 - 0.68 x10'3/uL 10/12/2024 4:10 PM CDT [facility] ABS. BASOPHILS 0.03 0.00 - 0.08 x10'3/uL 10/12/2024 4:10 PM CDT [facility] ABS. IMMATURE GRANULOCYTES 0.01 0.00 - 0.06 x10'3/uL 10/12/2024 4:10 PM CDT [facility] ABS. NUCLEATED RBC'S 0.00 0.00 - 0.01 x10'3/uL 10/12/2024 4:10 PM CDT [facility] 10/12/2024 3:45 PM CDT us Joe Ochoa MD LABORATORY Final Result Performing Organization Address City/State/[facility] Co de Phone Number [facility] [address] [place] [address], from Last 3 Months Additional Health Concerns Infection Onset Date Last Indicated MRSA Comment:04/11/2020 +MRSA Back wound 04/14/2020 04/14/2020 Insurance ALLIED Care Teams Social Science Teacher Relationship Specialty Start Date End Date Michael Wray MD [address] [place] [address] PCP - General FAMILY PRACTICE 06/02/19
--- OUTSIDE RECORDS SUMMARY | 2024-10-31 19:20 | XMS_ITS | Encounter Summary ---
Author Organization [facility] Address [address] [place] [address] Care Team Providers Care Felt Cutting Machine Operator Name Role Phone Michael Wray MD Primary Care Provider [phone] Encounter Details Date Type Department Care Team (Late st Contact Info) Description 07/18/2022 Inform Genomics Message [facility] Health Information Services [address] [place] [id number] [facility], [facility] Provider PT NAME CHANGE Social History [...] CDT Gender Identity Female 07/18/2022 4:46 AM SCOOP OPERATOR Sexual Orientation Straight 07/18/2022 4: 46 AM SCOOP OPERATOR COVID-19 Exposure Response Date Recorded In the last 10 days, have yo u been in contact with someone who was confirmed or suspected to have Coronavirus/COVID-19? No / Unsure 07/17/2022 6:19 PM SCOOP OPERATOR documented as of this encounter Plan of Treatment Not on file documented as of this encounter Visit Diagnoses Not on filedocumented in this encounter Additional Health Concerns Infection Onset Date Last Indicated Resolved Time MRSA Comment:04/11/2020 +MRSA Back wound 04/14/2020 04/14/2020 documented as of this encounter Care Teams Felt Cutting Machine Operator Relationship Specialty Start Date End Date Michael Wray MD [address] [place] [address] PCP - General FAMILY PRACTICE 06/02/19 documented as of this encounter
--- NOTE | 2024-10-31 19:54 | ED_ITS ---
HPI - Abdominal Pain General Chief Complaint: Abdominal Pain Stated Complaint: abd pain Time Seen by Provider: 10/31/24 19:10 History of Present Illness HPI narrative: Patient is a 34-year-old female who presents emergency department this evening complaining of right-sided flank pain radiating to her right abdomen. Patient admits that she does have a history of kidney stones. States that today she noticed that her her urine is bloody and decided to come in for further evaluation. States the pain has been on and off of for the past week. Denies any nausea, vomiting, or any dysuria. Patient also denies any chest pain shortness of breath, any recent illness, fevers or chills. There are no additional modifying, alleviating, or precipitating factors at this time. Related Data Home Medications ?Medication ?Instructions ?Recorded ?Confirmed ?Last Taken ?Type acetaminophen 325 mg tablet 650 mg PO DAILY PRN Pain 10/09/22 06/02/24 Unknown History alprazolam 1 mg tablet 1 mg BID PRN Anxiety 10/09/22 06/02/24 10/18/22 History naproxen 500 mg tablet 500 mg PO BID PRN Pain 10/09/22 06/02/24 10/18/22 History ondansetron HCl 4 mg tablet 4 mg PO Q6-8H PRN Nausea 10/09/22 06/02/24 10/18/22 History topiramate 100 mg tablet 100 mg PO TID 10/09/22 06/02/24 10/18/22 History venlafaxine 1 tablet PO HS 05/14/24 06/02/24 Unknown History Allergies Allergy/AdvReac Type Severity Reaction Status Date / Time adhesive Allergy Rash Verified 10/31/24 18:44 codeine Allergy Itching Verified 10/31/24 18:44 metoclopramide (From Reglan) Allergy Nausea and Verified 10/31/24 18:44 Vomiting Sulfa (Sulfonamide Allergy Rash Verified 10/31/24 18:44 Antibiotics) Review of Systems 2 Review of Systems: All systems are reviewed and are negative unless stated otherwise in the HPI. [facility] Surgical History Surgical History Hx laparoscopic cholecystectomy 05/15/[address] Yang Social History Social History Smoking status: Never smoker Alcohol intake: never Substance use: never Substance use type: does not use Do You Feel Safe in your Home?: Yes Lack of Transportation: No Lack of Food: Never True Current Housing: I Have Housing Concerned About Future Housing: No Difficulty Paying Gas/Electric Bills: No Difficulty Paying for Meds: No Currently Unemployed: No Education: High School Diploma/GED Difficulty w/ Childcare or Family Care: No Living arrangements: with family Gender identity (if verbalized by the patient): Female Sexual Orientation (if Verbalized by the Patient): Straight or Heterosexual Spiritual care concerns: No Exam 2 Narrative: General: Alert, awake, afebrile, in no acute distress. HEENT: PERRL, no rhinorrhea, no post nasal drip, oropharynx clear. Neck: Trachea midline, no JVD, no lymphadenopathy. Cardiovascular: Regular rate and rhythm, no murmurs, rubs or gallops, no peripheral edema. Respiratory: Clear to auscultation bilaterally, no tachypnea, no wheezing, no rhonchi, no rubs, no respiratory distress. Abdomen: Soft, nontender, nondistended, no rebound, no guarding, no peritoneal signs. Musculoskeletal: No joint swelling or deformity, normal muscle tone. Skin: No rashes or petechia, no signs of infection. Psychiatric: Alert and oriented, normal behavior and judgment for situation. Neurological: Alert and oriented to person, place, and time. Follows all commands. No focal deficits, speech is clear and fluent. Course Vital Signs Vital signs: Vital Signs Temperature 97.9 F 10/31/24 18:11 Pulse Rate 67 10/31/24 18:11 Respiratory Rate 16 10/31/24 18:11 Blood Pressure 129/79 10/31/24 18:11 Pulse Oximetry 98 10/31/24 18:11 Temperature 97.9 F 10/31/24 18:11 Pulse Rate 67 10/31/24 20:19 Respiratory Rate 15 10/31/24 20:19 Blood Pressure 127/85 10/31/24 20:19 Pulse Oximetry 99 10/31/24 20:19 MDM - Abdominal Pain MDM Narrative Medical decision making narrative: The patient was evaluated by myself in the emergency department. History is obtained from patient who is an independent historian and physical exam was performed. External medical records were reviewed at this time. IV was established and pertinent tests were ordered. Patient was administered 15 mg IV Toradol for pain and 1 L IV fluid bolus with normal saline. Laboratory results obtained revealing no acute process. Urinalysis revealed 3+ blood and greater than 100 RBCs. Imaging studies obtained included CT abdomen pelvis with IV contrast which was independently interpreted by me revealing: IMPRESSION: No suspicious mass, obstructing stone, or hydronephrosis. Bilateral renal cysts and lesions that are too small to characterize but most likely represent cysts. Punctate bilateral nonobstructing calculi. 4.0 cm hemorrhagic right ovarian cyst. At this time, pelvic ultrasound with transvaginal was obtained to rule out ovarian torsion, ultrasound was independently interpreted by me revealing: IMPRESSION: No sonographic evidence of torsion. Complex right ovarian cyst, most likely representing a hemorrhagic cyst or endometrioma. Recommend transabdominal and transvaginal pelvic ultrasound follow-up in 6-12 weeks to evaluate for resolution. Patient was informed of these findings at bedside, provided with printed out of her CT and ultrasound report. Instructed to follow-up with her OBGYN within the next week. Patient states that pushing on her belly caused some pain and at this time she was administered 4 mg of IV morphine and 4 mg IV Zofran. Differential diagnosis considerations include nephrolithiasis, urinary tract infection, appendicitis. Comorbidities impacting this visit include history of kidney stones. I have evaluated and discussed social determinants of health with the patient that could potentially impact subsequent diagnosis and treatment plans. On repeat assessment of the patient, reevaluation revealed that the patient is doing well and is in no acute distress. Patient symptoms have improved since she arrived to our emergency department. Repeat vital signs were all reviewed and noted to be stable. Differential diagnosis and treatment plan were discussed with the patient at bedside. Patient agrees with discussion and after shared medical decision making agrees with discharge. All questions were answered to the patient's satisfaction. Patient will follow up with her OBGYN in 3-5 days. Patient was provided with strict return precautions and instructed to return to the emergency department if any new or worsening symptoms develop. The patient was discharged in stable condition. Lab Data 10/31/24 18:48 10/31/24 18:48 Labs: Lab Results 10/31/24 10/31/24 Range/Units 18:48 18:49 WBC 7.8 (4.5-10.0) K/mm3 RBC 4.07 L (4.2-5.4) M/mm3 Hgb 13.1 (12.0-15.0) g/dL Hct 39.7 (37.0-47.0) % MCV 97.5 (80-100) fl MCH 32.2 (26-34) pg MCHC 33.0 (32-36) g/dl RDW 13.1 (11.5-14.5) % Plt Count 242 (150-375) k/mm3 MPV 10.8 H (7.4-10.4) fl Immature Gran % (Auto) 0.3 (0-0.5) % Neut % (Auto) 57.6 (45.5-73.1) % Lymph % (Auto) 32.3 (18.3-44.2) % Glasscock % (Auto) 5.3 (2.6-8.5) % Eos % (Auto) 3.6 (0-4.4) % Baso % (Auto) 0.9 (0.2-1.2) % Lymph # (Auto) 2.51 (0.9-3.2) K/mm3 Glasscock # (Auto) 0.4 (0.1-0.6) K/mm3 Eos # (Auto) 0.3 (0-0.3) K/mm3 Baso # (Auto) 0.1 (0.0-0.1) K/mm3 Abs Immat Gran (auto) 0.02 (0.00-0.031) K/mm3 Absolute Neuts (auto) 4.5 (1.3-6.7) K/mm3 Absolute Nucleated RBC 0.000 (0.0-0.012) K/mm3 Nucleated RBC % 0.0 (0.0-0.2) % Sodium 141 (137-145) mmol/L Potassium 3.5 (3.4-5.0) mmol/L Chloride 109 H (98-107) mmol/L Carbon Dioxide 21 L (22-30) mmol/L Anion Gap 11 (4-12) mmol/L BUN 9 (7-17) mg/dL Creatinine 0.86 (0.7-1.0) mg/dL Estim Creat Clear Calc 70 ml/min Estimated GFR > 60 (59 - ) Glucose 87 (65-110) mg/dL Calcium 8.9 (8.4-10.2) mg/dL Total Bilirubin 0.3 (0.2-1.3) mg/dL AST 24 (14-36) U/L ALT 27 (6-35) U/L Alkaline Phosphatase 68 (38-126) U/L Total Protein 8.0 (6.3-8.2) g/dL Albumin 4.3 (3.5-5.1) g/dL Lipase 188 (23-300) U/L Urine Color Yellow (Yellow) Urine Appearance Clear (Clear) Urine pH 6.5 (5.0-9.0) Ur Specific Roebling 1.013 (1.001-1.035) Urine Protein Negative (Negative) mg/dL Urine Glucose (UA) Negative (Negative) mg/dL Urine Ketones Negative (Negative) mg/dL Ur Blood (Man) 3+ H (Negative) Urine Nitrate Negative (Negative) Urine Bilirubin Negative (Negative) Urine Urobilinogen 1.0 (<2.0) mg/dL Leukocyte Esterase Rfl Negative (Negative) DEMETRIUS/UL Urine RBC >100 H (0-2) /hpf Urine WBC 0-5 (0-3) /hpf Ur Squamous Epith Cells Occasional (Few) /hpf Urine Bacteria None seen /hpf Urine Casts 0-2 POC Urine HCG, Qual Negative (Negative) Imaging Data Radiologist's impression: ITS Impressions Abdomen/Pelvis CT 10/31/24 20:07 IMPRESSION: 4.0 cm hemorrhagic right ovarian cyst. Pelvis Ultrasound 10/31/24 21:52 IMPRESSION: No sonographic evidence of torsion. Complex right ovarian cyst, most likely representing a hemorrhagic cyst or endometrioma. Recommend transabdominal and transvaginal pelvic ultrasound follow-up in 6-12 weeks to evaluate for resolution. Discharge Plan Discharge Clinical Impression: Ovarian cyst, Abdominal pain Patient Disposition: Home Condition: Improved Instructions: Antibiotic Form, Ovarian Cyst (ED), Abdominal Pain (ED) Additional Instructions: Please follow-up with your OBGYN within the next 1-2 weeks per return to emergency department if any new or worsening symptoms develop. Patient Language: Congolese Prescriptions: No Action acetaminophen 325 mg Tablet 650 mg PO DAILY PRN (Reason: Pain) alprazolam 1 mg tablet 1 mg BID PRN (Reason: Anxiety) ondansetron HCl 4 mg tablet 4 mg PO Q6-8H PRN (Reason: Nausea) topiramate 100 mg tablet 100 mg PO TID naproxen 500 mg tablet 500 mg PO BID PRN (Reason: Pain) venlafaxine 150 mg 1 tablet PO HS Follow-up/Referrals: Gomez Carrington MD [Physician] - 1 Week Nils,Michael Hernandez MD [Primary Care Provider] - Time of Disposition: 22:19
[2024-10-31] MEDS: ONDANSETRON INJ 4 MG/2 ML VIAL IV PUSH ×2 (20:05→20:47)
[2024-10-31] MEDS: KETOROLAC 15 MG/ML VIAL (*BKC) IV PUSH (20:05)
[2024-10-31] MEDS: SODIUM CHLORIDE 0.9% IV 1,000 ML 999 ML IV CONT (20:15)
[2024-10-31 20:19] VITALS: BP 127/85; PULSE 67; RESP 15; O2SAT 99
[2024-10-31] MEDS: MORPHINE SULFATE (*CRX) 2 MG/ML INJ 4 MG IV PUSH (20:47)
[2024-10-31] MEDS: MORPHINE SULFATE (*CRX) 2 MG/ML INJ IV PUSH (21:57)
[2024-10-31 22:37] VITALS: BP 123/78; PULSE 72; RESP 16; TEMP 36.4; O2SAT 100
[2024-10-31 22:43] VITALS: BP 123/78; PULSE 72; RESP 16; TEMP 36.4; O2SAT 100
== END 2024-10-31 22:45 | disposition home or self-care (01) ==
PROVIDERS: Emergency Medicine; Emergency Provider Emergency Medicine; PCP Emergency Medicine
DX: N83.201 Unspecified ovarian cyst, right side (principal); Z90.49 Acquired absence of other specified parts of digestive tract; Z79.899 Other long term (current) drug therapy
CPT/HCPCS: 36415; 74177; 76856; 80053; 81001; 81025; 83690; 85025; 96361; 96374; 96375; 96376; 99284; J1885; J2270; J2405; J7030; Q9967

== ENCOUNTER 2024-12-09 16:55 | Emergency (ER) | payer OTHER, SELFPAY ==
--- NOTE | ~2024-12-09 | US_ITS ---
US pelvic complete w TV Ordering provider: Rose Retana History: . right sided pelvic pain . Comparison: None. Technique: Transabdominal and endovaginal ultrasound of the pelvis (Doppler ultrasound interrogation techniques used as needed for this exam.) FINDINGS: UTERUS: Surgically removed. CUL DE SAC: No free fluid. RIGHT OVARY: Normal in size measuring 2 x 1.9x 1.8 cm. Cyst is seen involving the majority of the ova ry. Normal echotexture. Doppler vascular flow present. LEFT OVARY: Normal in size measuring 1.8x 1.7x 1.1 cm. Small cyst seen in the left ovary.. Normal ech otexture. Doppler vascular flow present. ADNEXA: Normal. No mass. IMPRESSION: Small cysts seen in both ovaries. Status post surgical removal of the urinary uterus. Reviewed, dictated and finalized at location A. IMPRESSION: Small cysts seen in both ovaries. Status post surgical removal of the urinary u terus.
--- NOTE | ~2024-12-09 | CT_ITS ---
CT abdomen pelvis w con Ordering provider: Cody Evans MD History: 34 years Female with . RLQ pain, concern for appy . Comparison: October 31, 2024 Technique: CT abdomen and pelvis with IV and without oral contrast. Automated exposure control and it erative reconstruction technique were employed. The dose-length product was 286.02 mGy-cm. 100 mL Omn ipaque 350 was given IV. Findings: VISUALIZED LOWER CHEST: Normal. UPPER ABDOMINAL ORGANS: Liver: Normal. Gallbladder: Status post cholecystectomy. Spleen: Normal. Stomach/duodenum: Normal. Pancreas: Normal. Adrenals: Normal. Kidneys: Multiple hypodensities in the right kidney suggestive of small cysts. Left kidney mid pole c yst. PELVIC ORGANS: The bladder is slightly underfilled BOWEL AND MESENTERY: Colon: No evidence of diverticulitis. Increased vascularity is seen around the cecum and ascending co aurelia with slight thickening of the wall which may indicate colitis. Inflammatory bowel disease should be considered.. Normal appendix. Small Bowel: Normal. No obstruction. Peritoneum/mesentery: No free air or free fluid. No mesenteric lymphadenopathy. Small mesenteric lymp h nodes are noted. RETROPERITONEUM: Normal aorta. No retroperitoneal lymphadenopathy. MUSCULOSKELETAL: Superficial soft tissues: The superficial soft tissues are normal. Bones: Normal spine. Bilateral sacroiliacs. IMPRESSION: 1. No evidence of appendicitis, diverticulitis or intestinal obstruction. 2. Increased vascularity around the cecum and ascending colon with slight thickening of the wall whi ch may indicate colitis. Inflammatory bowel disease should be considered. Follow-up advised. 3. Bilateral small renal cysts. Reviewed, dictated and finalized at location A. IMPRESSION: 1. No evidence of appendicitis, diverticulitis or intestinal obstruction. 2. Increased vascularity around the cecum and ascending colon with slight thic kening of the wall which may indicate colitis. Inflammatory bowel disease shoul d be considered. Follow-up advised. 3. Bilateral small renal cysts.
--- OUTSIDE RECORDS SUMMARY | 2024-12-09 16:57 | XMS_ITS | Clinical Summary ---
Author Organization [facility] Address [address] [place] [phone] Phone Care Team Providers Care Legal Operations Manager Name Role Phone Michael Wray MD Primary Care Provider [phone] Allergies Active Allergy Reactions Criticality Noted Date [...] Comments Blood Pressure 134/72 08/01/2021 10:52 AM FRUIT CUTTER Pulse - - Temperature 36.4 C (97.6 F) 08/01/2021 10:52 AM FRUIT CUTTER Respiratory Rate 18 08/01/2021 10:52 AM FRUIT CUTTER Oxygen Saturation - - Inhaled Oxygen Concentration - - Weight 68.9 kg (152 lb) 08/01/2021 10:52 AM FRUIT CUTTER Height 154.9 cm (5' 1) 08/01/2021 10:52 AM FRUIT CUTTER Body Mass Index 28.72 08/01/2021 10:52 AM FRUIT CUTTER Plan of Treatment Health Maintenance Due Date Last Done Comments Influenza Vaccine (Season Ended) 2025 Insurance [employer] Care Teams Legal Operations Manager Relationship Specialty Start Date End Date Michael Wray MD [address] [place] [address] PCP - General Family Medicine 08/13/21
--- OUTSIDE RECORDS SUMMARY | 2024-12-09 16:57 | XMS_ITS | Data Portability ---
Author Organization [facility] Address [address] [place] [address] Care Team Providers Care Medical Assembler Name Role Phone JENNIFER MARICEL Primary Care Provider [phone] Assessment No assessment recorded. Plan of Treatment Reminders Order Date Submit Date Provider Last Modified By Organization Details Last Modified Time Details Appointments U/S SIDE PANEL PADDER COMPLET E 2024 10:00A M ULTRASOUND Not available Not available Not available Lab None recorde d. Referral None recorde d. Procedures None recorde d. Surgeries None recorde d. Imaging US, transva ginal 2024 025 [email or web address], [address], [place], [address], 10/31/2024 09:04:55 Medication Orders oxycodo ne-acet aminoph en 5 mg-325 mg tablet 2024 025 [facility][id number], [address] [place], [address], 11/15/2024 18:01:47 hydroco done 5 mg-acet aminoph en 325 mg tablet 2024 025 [facility] #[id number], [address] [place], [address], 10/23/2024 13:01:37 oxycodo ne-acet aminoph en 5 mg-325 mg tablet [address]/[facility]acy #[id number], [address] [place], [address], 04/28/2024 17:17:49 Patient TargetsNo targets recorded. Patient [...] Resul ting Lab: [facility] [address] [facility] [address] Tel: CULTU RE ----- ----- ----- --- No growt h in 1 day (dete ction level of 10,00 0 colon ies / ml.) Not Available [facility] (Lab) [address] [facility], [place], [address], 09/10/2023 19:49:46 09/09/19 24 09/09/2023 urina lysis , dipst ick pH Not Available [address], [place], [address], 09/09/2023 15:39:32 09/11/19 24 09/11/2023 US, trans vagin al No observ ation record ed. [email or web address] [address], [place], [address], 09/11/2023 11:08:46 09/11/19 24 09/11/2023 US, trans vagin al No observ ation record ed. aric [address], [facility], [place], [address], 09/12/2023 09:25:02 05/14/20 24 05/14/2024 MAMMO , diagn ostic , digit al, bilat eral No observ ation record ed. [email or web address] (Mammography) [address], [place], [address], 07/20/2024 15:33:44 10/30/19 25 10/29/2024 US, trans vagin al No observ ation record ed. [facility] [address], [place], [address], 10/29/2024 14:33:26 10/30/19 25 10/29/2024 US, trans vagin al No observ ation record ed. [email or web address] [address], [place], [address], 11/04/2024 22:34:07 Result Notes None recorded. Problems Name Problem SNOMED Code Status Onset Date Resolution Date Notes Provider Name and Address Organization Details Recorded Time Migraine 15122061 Active 2022 Allyn schmidt, [facility] 3 16:56:24 Mixed anxiety and depressive disorder 921676328 Active 2022 Allyn schmidt [facility] 3 16:56:38 Problem Notes None recorded. Procedures Surgical History Date Name Laterality Status Provider Name and Address Organization Details Recorded Time 10/23/19 23 ROBOTIC ASSISTED HYSTERECTOMY WITH SALPINGECTOMY (SURG) completed Natalia Storm [facility] 10/23/2022 10:32:32 07/14/19 20 termination of completed Allyn Zimmerman [facility] 06/30/2023 16:58:54 07/14/19 15 Endometrial Ablation completed Allyn Zimmerman [facility] 06/30/2023 16:58:35 07/14/19 13 extraction of wisdom tooth completed Allyn Zimmerman [facility] 09/16/2023 17:08:45 12/02/19 12 Caesarean Section completed Allyn Zimmerman [facility] 06/30/2023 16:58:31 Imaging Results None recorded. Procedure Notes None recorded. Medical Equipment None Reported. Allergies Allergen ID Allergen Name Allergen Category Reaction Reaction Severity Criticality Documentation Date Start Date Code Code System Note Provider Name and Address Organization Details Recorded Time Bactrim medicatio n rash Not available Not available 08/12/2022 [address] [facility] 3 14:39:20 70302 Reglan medicatio n nausea Not available Not available 08/12/[address] [facility] 3 14:39:20 59051 Substance with sulfonami de structure and antibacte rial mechanism of action (substanc e) medicatio n Not available Not available Not available 08/12/2022 69242 8003 SNOMED [facility] 3 15:05:41 11555 adhesive environme nt,medica tion Not available Not available Not available 08/12/2022 57073 UNK [facility] 3 15:05:49 Medications Name Sig Start [...] Not Available Not Available No t Available hydromorpho ne 2 mg tablet TAKE [...] Updated DateTime 09/16/2023 152.4 cm 30.3 kg/m2 00507.82 g 132 mm[Hg] 82 mm[Hg] Allyn Zimmerman [facility] 4 17:07:48 Date Recorded Body height Body mass index (BMI) Body weight Systolic blood pressure Diastolic blood pressure Provider Name and Address Organization Details Last Updated DateTime 10/23/2024 152.4 cm 27.3 kg/m2 32976.93 g 113 mm[Hg] 77 mm[Hg] Phyllis Simmons [facility] 5 12:05:00 Date Recorded Body height Body mass index (BMI) Body weight Systolic blood pressure Diastolic blood pressure Provider Name and Address Organization Details Last Updated DateTime 11/15/2024 152.4 cm 27.1 kg/m2 13883.34 g 110 mm[Hg] 74 mm[Hg] Quynh Zamarripaer [facility] 5 17:31:55 Date Recorded Body height Body mass index (BMI) Body weight Systolic blood pressure Diastolic blood pressure Provider Name and Address Organization Details Last Updated DateTime 04/28/2024 152.4 cm 24.2 kg/m2 06718.45 g 108 mm[Hg] 73 mm[Hg] Quynh Rajesh [facility] 4 17:17:29 Social History Question Answer Notes LastModified by Organizat ion Details LastModified Time Tobacco Smoking Status Never Smoker Ayla Jackson roxana, [facility] 06/30/2023 16:38:14 Are You Blind Or Do You Have Difficulty Seeing? No Information n ot available 08/12/2022 What Is Your Level Of Caffeine Consumption? Moderate Information not available 08/12/2022 How Much Tobacco Do You Chew? None Information not available 08/12/2022 In The 14 Days Before Symptom Onset, Have You Had Close Contact With A Laboratory-confirm ed COVID-19 While That Case Was Ill? No Information n ot available 08/12/2022 In The 14 Days Before [...] Of Diet Are You Following? REGULAR Information n ot available 08/12/2022 What Is The Highest Grade Or Level Of School You Have Completed Or The Highest Degree You Have Received? [id number] Information not available 08/12/2022 Are There Any Guns Present In Your [...] IV Drugs? No Information not available 08/12/2022 Do You Have Difficulty Walking Or Climbing Stairs? No Information not available 06/30/2023 Sex: Unknown Functional Status Question Answer Note LastModified by Organizat ion Details LastModified Time Do you use any illicit or recreational drugs? No Information not available 08/12/2022 What is your level of alcohol consumption? None Information not available 08/12/2022 Are you able to walk? YESWOREST Information not available 08/12/2022 Are you able to care for yourself? 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 No [email or web address] Information not available 06/30/2023 What is your exercise level? Occasional Information not available 08/12/2022 Mental Status Question Answer Note LastModified by Organization D etails LastModified Time Do you feel stressed (tense, restless, nervous, or anxious, or unable to sleep at night)? [id number] Information not available 08/12/2022 Family History Relationship Description Onset Age of this Age Resolved Age Notes LastModified by Organization Details LastModified Time Mother Heart disease [email or web address] Not available 06/30 16:55:51 Maternal Grandfather Heart disease [email or web address] Not available 06/30 16:55:51 Brother Heart disease [email or web address] Not available 06/30 16:55:51 Medical History Condition Response Allergies (Food, seasonal, environmental ) N Other N Breast Cancer N Drug/Latex Allergies/Reactions Y Blood Transfusion N Dermatologic Disorders N Lung Disease N Defects or Inherited Disease N Breast Problem N Gestational Diabetes N Hematologic disorders N Anesthesia Complications N History of STI N Deep Vein Thrombosis N Polycystic ovary syndrome N Anxiety Disorder Y Autoimmune disease N Arthritis N Infertility N Polyps N Acid Reflux (GERD) N History of abnormal pap N Cancer N Stroke N Varicosities N Neurologic/Epilepsy N Endometriosis Y High Cholesterol N Headaches Y Fibromyalgia N Kidney Disease N Heart Problems N Kidney [...] SNOMED-CT Code Diagnosis ICD10 Code Diagnosis Note [id number] Gomez Carrington MD [facility] [address] [address] 08/12/2022 14:24:39 08/12/2022 17:09:58 Pain in pelvis 26053455 R10.2 this patient is a 31-year-ol d [...] surgery for endometrio sis at that time. [id number] Gomez Carrington MD [facility] [address] [address] 08/15/2022 12:10:39 08/15/2022 13:07:48 Cyst of right ovary 3665183240 [id number] N83.291 [id number] Gomez Carrington MD [facility] [address] [address] 08/17/2022 12:19:17 08/19/2022 11:47:19 Female sterilization 61177746 Z30.2 Pain in pelvis 12551342 R10.2 Endometrio sis of pelvis 83614106 N80.30 this patient is a 31-year-ol d [...] . We made decision to Perform surgery. [id number] Gomez Carrington MD [facility] [address],[place] [address] 10/11/2022 15:33:47 10/23/2022 14:38:37 Pain in pelvis 48779729 R10.2 Endometrio sis of pelvis 96077249 N80.30 32-year-ol d female with pelvic pain and endometrio sis. We have agreed to perform robotic assisted hysterecto my with bilateral Salpingect allyssa. she understand s risk, benefits, and alternativ es. She has completed the informed consent process is ready to proceed. [id number] Gomez Carrington MD [facility] [address],[place] [address] 10/23/2022 10:08:58 10/23/2022 10:10:20 [id number] Gomez Carrington MD [facility] [address],[place] [address] 10/26/2022 11:44:06 10/28/2022 13:16:33 Postoperative pain 280225893 G89.18 42-old female presents for postop follow-up. She has no complaints . She still continues to have some postoperat dominic pain. Her incisions are clean dry and intact. Her recovery is normal. She will follow-up [id number] Gomez Carrington MD [facility] [address],[place] [address] 06/30/2023 16:38:05 07/01/2023 08:48:45 Pain in pelvis 22479652 R10.2 32-year-ol d female who is in [...] will return for worsening or persistent pain. [id number] Gomez Carrington MD [facility] [address] [address] 06/30/2023 17:24:46 07/01/2023 08:50:28 Cyst of right ovary 0166856815 [id number] N83.291 [id number] HERIBERTO Zamudio [facility] [address] [address] 09/09/2023 14:46:10 09/09/2023 16:32:44 Pain in pelvis 29481241 R10.2 This patient is a 32 -year-old [...] uprofen for painprecau tions reviewed Abdominal pain 55950847 R10.9 [id number] Gomez Carrington MD [facility] [address] [address] 09/11/2023 10:09:37 09/11/2023 10:58:44 Pain in pelvis 56853925 R10.2 32-year-ol d female who is in [...] will return for worsening or persistent pain. [id number] Gomez Carrington MD [facility] [address] [address] 09/16/2023 15:55:31 09/17/2023 05:57:35 Pain in pelvis 34100086 R10.2 This patient is a 33-year-ol d [...] right oophorecto my. Or bilateral oophorecto my. [id number] Gomez Carrington MD [facility] [address],[place] [address] 04/28/2024 16:55:41 04/28/2024 17:48:19 Breast lump 84509529 N63.0 33-year-ol d female with breast lump that is likely fibrocysti c change that is pronounced in a specific area. To image the breast. She will return after imaging to determine treatment plan. Spent over 20 minutes on the patient's care in total. [id number] Gomez Carrington MD [facility] [address],[place] [address] 10/23/2024 11:52:56 10/23/2024 13:06:06 Pain in pelvis 02449752 R10.2 To obtain pelvic ultrasound and to return to see me. I spent over 20 minutes on the patient's care in total. Cyst of ovary 56150948 N 83.209 [id number] Gomez Carrington MD [facility] [address],[place] [address] 10/29/2024 09:37:55 10/29/2024 10:32:24 Pain in pelvis 15639738 R10.2 To obtain pelvic ultrasound and to return to see me. I spent over 20 minutes on the patient's care in total. [id number] Gomez Carrington MD [address] [address],[place] [address] 11/15/2024 16:06:10 11/16/2024 06:20:05 Pain in pelvis 81322490 R10.2 This patient is a 34-year-ol d female presents for follow up on pelvic pain. She has a hemorrhagi c ovarian cyst on the right side. Possible endometrio ma. Has a history of endometrio sis. Has history of hysterecto my. We discussed the findings on the ultrasound . We shared images. We agreed to observe her pain and repeat ultrasound in 6 weeks. She will follow up with me after the ultrasound . I spent 20 minutes on her care in total. Health Concerns Section Related Observation LastModified by Organization Detai ls LastModified Time None Recorded Concern Status LastModified by Organization Details LastModified Time None Recorded Advance Directives Directive None Recorded Payers Encounter Date Sequence Insurance Name Policy Number Policy Zavala Covered Member ID Zavala Member ID Guarantor Name 09/16/2023 1 [place] [id number] Derek Chou Charles [id number] Anyi Chou Charles 04/28/2024 1 [place] [id number] Derek Chou Charles [id number] Anyi Chou Charles 10/23/2024 1 [place] [id number] Derek Chou Charles [id number] Anyi Chou Charles 10/29/2024 1 [place] [id number] Derek Chou Charles [id number] Anyi Chou Charles 11/15/2024 1 [place] [id number] Derek Chou Charles [id number] Anyi Chou Charles Notes Date Note Type Note Provider Name and Address Organization Details Recorded Time 09/16/2023 text/html This patient is a 33-year-old female with history of pelvic pain and endometriosis. She has had hysterectomy for endometriosis. She has some right-sided pain. It is intermittent. She has had some ovarian cysts. We spent 20 minutes [id number]. More than 50% was counseling. We talked about ovarian cysts, endometriosis, previous surgeries. Possible treatments. We agreed to observe her pelvic pain and ovaries. At this time she is comfortable. She is considering more treatment. She is considering right oophorectomy. Or bilateral oophorectomy. Gomez Carrington MD [address], [place], [address], [facility] 09/16/2023 21:03:54 04/28/2024 text/html Breast MassReported bypatient.Location :left; upper outer quadrant Onset/Timin day; 1-4 months; gradual Quality:size 2 cm; firm; tender; mobile Severity:moderate Duration:constant Context:performs breast self examination; no prior biopsies; fibrocystic breasts Modifying Factors:touch Associated Symptoms:no fever; no skin redness; no nipple discharge; no breast swelling; no arm pain; no arm swelling; no chest pain Gomez Carrington MD [address], [place], [address], [facility] 04/28/2024 17:45:03 10/23/2024 text/html . this [...] breath. Gomez Carrington MD [address], [place], [address], [facility] 10/23/2024 13:04:41 11/15/2024 text/html This patient is a 34-year-old female presents for follow up on pelvic pain. She has a hemorrhagic ovarian cyst on the right side. Possible endometrioma. Has a history of endometriosis. Has history of hysterectomy. We discussed the findings on the ultrasound. We shared images. We agreed to observe her pain and repeat ultrasound in 6 weeks. She will follow up with me after the ultrasound. I spent 20 minutes on her care in total. Gomez Carrington MD [address], [place], [address], [facility] 11/15/2024 18:03:47 OBGyn Episode Ob Episode Information Episode Created Date Number of Fetuses Patient Bloodtype Patient rh Status Prepregnancy Weight lbs Domestic Partner Domestic Partner Phone Father Name Recycling Specialist Status 08/12/19 23 1 CLOSED Fetus Data First Name Last Name Admitted to NICU Weight (g) Sex Living Outcome Pediatric Complications Fetus ID Race Codes Race Delivery Type M Full Term [id number] Primary Drake Calculation Initial Drake Date Initial [...] Domestic Partner Domestic Partner Phone Father Name Recycling Specialist Status 08/12/19 23 1 CLOSED Fetus Data First Name Last Name Admitted to NICU Weight (g) Sex Living Outcome Pediatric Complications Fetus ID Race Codes Race Delivery Type , Induced [id number] Drake Calculation Initial Drake Date Initial Exam [...]
[2024-12-09 16:59] VITALS: BP 119/81; PULSE 78; RESP 20; TEMP 35.9; O2SAT 100
--- NOTE | 2024-12-09 18:04 | ED.ABDPAIN ---
HPI - Abdominal Pain General Chief Complaint: Abdominal Pain <Rose Retana PA-C - Last Filed: 12/10/24 11:11> Stated Complaint: R abd pain, dizziness, n/v <Rose Retana PA-C - Last Filed: 12/10/24 11:11> Time Seen by Provider: 12/09/24 18:04 <Rose Retana PA-C - Last Filed: 12/10/24 11:11> Focused HPI: This is a 34 year old female that presents to the ER for right sided lower abdominal pain. Ongoing over the last couple of days. Reports history of ovarian cyst. Reports nausea and vomiting. Denies fever, dysuria, hematuria. GENERAL: Well-appearing, well-nourished, and in no acute distress. HEAD: Normocephalic, atraumatic. CHEST: Clear to auscultation. ?No respiratory distress. HEART: Regular rate and rhythm.? NEURO: ?Alert and oriented x3. Patient screened in triage and initial orders placed.? ?Additional care and disposition to be based upon?diagnostic testing and treatment. <Rose Retana PA-C - Last Filed: 12/10/24 11:11> History of Present Illness HPI narrative: Agree with the HPI above <Cody Evans MD - Last Filed: 12/10/24 07:07> Related Data Home Medications: Home Medications ?Medication ?Instructions ?Recorded ?Confirmed ?Last Taken ?Type acetaminophen 325 mg tablet 650 mg PO DAILY PRN Pain 10/09/22 06/02/24 Unknown History alprazolam 1 mg tablet 1 mg BID PRN Anxiety 10/09/22 06/02/24 10/18/22 History naproxen 500 mg tablet 500 mg PO BID PRN Pain 10/09/22 06/02/24 10/18/22 History ondansetron HCl 4 mg tablet 4 mg PO Q6-8H PRN Nausea 10/09/22 06/02/24 10/18/22 History topiramate 100 mg tablet 100 mg PO TID 10/09/22 06/02/24 10/18/22 History venlafaxine 1 tablet PO HS 05/14/24 06/02/24 Unknown History <Rose Retana PA-C - Last Filed: 12/10/24 11:11> Allergies/Adverse Reactions: Allergies Allergy/AdvReac Type Severity Reaction Status Date / Time adhesive Allergy Rash Verified 10/31/24 18:44 codeine Allergy Itching Verified 10/31/24 18:44 metoclopramide (From Reglan) Allergy Nausea and Verified 10/31/24 18:44 Vomiting Sulfa (Sulfonamide Allergy Rash Verified 10/31/24 18:44 Antibiotics) <Rose Retana PA-C - Last Filed: 12/10/24 11:11> Review of Systems Review of Systems: As reviewed above in HPI <Cody Evans MD - Last Filed: 12/10/24 07:07> PMFSH Surgical History Surgical History: Surgical History Hx laparoscopic cholecystectomy 05/15/[address] Yang <Rose Retana PA-C - Last Filed: 12/10/24 11:11> Social History Social History: Social History Smoking status: Never smoker Alcohol intake: never Substance use: never Substance use type: does not use Do You Feel Safe in your Home?: Yes Lack of Transportation: No Lack of Food: Never True Current Housing: I Have Housing Concerned About Future Housing: No Difficulty Paying Gas/Electric Bills: No Difficulty Paying for Meds: No Currently Unemployed: No Education: High School Diploma/GED Difficulty w/ Childcare or Family Care: No Living arrangements: with family Gender identity (if verbalized by the patient): Female Sexual Orientation (if Verbalized by the Patient): Straight or Heterosexual Spiritual care concerns: No <Rose Retana PA-C - Last Filed: 12/10/24 11:11> Exam Narrative: GENERAL: [Well-appearing, well-nourished, and in no acute distress.] HEAD: [Normocephalic, atraumatic.] EYES: [PERRLA and EOMI.] ENT: Nares clear, no rhinorrhea or epistaxis. Mucous membranes moist. NECK: Supple. CHEST: [Clear to auscultation. No respiratory distress.] HEART: [Regular rate and rhythm]. No murmur heard. [Normal peripheral pulses.] ABDOMEN: [Soft, nondistended], tender to palpation right lower quadrant, [No rigidity or guarding] EXTREMITIES: Normal range of motion. [No edema.] SKIN: Warm, dry, no rash. NEURO: [No focal deficits]. Alert and oriented [x3.] PSYCH: [Normal mood and affect.] <Cody Evans MD - Last Filed: 12/10/24 07:07> Course Vital Signs Vital signs: Vital Signs Temperature 96.7 F L 12/09/24 16:59 Pulse Rate 78 12/09/24 16:59 Respiratory Rate 20 12/09/24 16:59 Blood Pressure 119/81 12/09/24 16:59 Pulse Oximetry 100 12/09/24 16:59 Oxygen Delivery Room Air 12/09/24 16:59 Temperature 98.7 F 12/09/24 20:12 Pulse Rate 70 12/10/24 00:30 Respiratory Rate 14 12/10/24 00:30 Blood Pressure 105/83 12/10/24 00:30 Pulse Oximetry 100 12/10/24 00:30 Oxygen Delivery Room Air 12/09/24 16:59 <Rose Retana PA-C - Last Filed: 12/10/24 11:11> Vital Signs Temperature 96.7 F L 12/09/24 16:59 Pulse Rate 78 12/09/24 16:59 Respiratory Rate 20 12/09/24 16:59 Blood Pressure 119/81 12/09/24 16:59 Pulse Oximetry 100 12/09/24 16:59 Oxygen Delivery Room Air 12/09/24 16:59 Temperature 98.7 F 12/09/24 20:12 Pulse Rate 70 12/10/24 00:30 Respiratory Rate 14 12/10/24 00:30 Blood Pressure 105/83 12/10/24 00:30 Pulse Oximetry 100 12/10/24 00:30 Oxygen Delivery Room Air 12/09/24 16:59 <Cody Evans MD - Last Filed: 12/10/24 07:07> MDM - Abdominal Pain MDM Narrative Medical decision making narrative: 34-year-old female with past surgical history including cholecystectomy and hysterectomy. Patient presents to the emergency room with right lower quadrant abdominal pain associated dizziness, nausea and vomiting. Patient states she had an ovarian cyst on the right side previously and was thinking this could be related. She still has her appendix. No fever, chills, night sweats, weight loss, shortness a breath or chest pain. She states she vomited at home and took Zofran. She has been taking Tylenol and ibuprofen without any significant proved her pain. Came to the ER for evaluation. Denies any trauma or injury. Given her right lower quadrant tenderness on examination as well as her symptomatology including nausea vomiting pain and dizziness considerations are for appendicitis, diverticulitis, colitis, intra-abdominal abscess, ruptured ovarian cyst, ovarian torsion. Ultrasound of the pelvis was obtained with Doppler studies, CT of the abdomen pelvis with IV contrast obtained. Laboratory studies ordered. She is given morphine Zofran fluids and re-evaluated. Patient's workup shows no leukocytosis or anemia. Normal platelet count. Electrolytes are unremarkable. Normal renal function, normal LFTs. test negative, urinalysis negative for infection. Pelvic ultrasound shows some small cyst but no other acute findings. CT scan shows no evidence of appendicitis, diverticulitis or intestinal obstruction. There is some internal vascularity around the cecum ascending colon suspicious for colitis with potential diagnosis including inflammatory versus infection bowel disease. No convincing signs or symptoms of ischemic bowel especially with her historical features and clinical exam. Discussed with the patient at bedside the potential plan of care at this time given that she does not have any signs or symptoms or history of inflammatory bowel we will treat this as a potential infectious colitis and give her dose of ciprofloxacin and Flagyl which she will be discharged home on a 10 day course of with referral to GI on outpatient basis for repeat evaluation if this is not resolved. Patient comfortable with this plan also sent home with some pain medications and Zofran as needed. Patient discharged at this time. <Cody Evans MD - Last Filed: 12/10/24 07:07> Medical Records Attestation: I reviewed the patient's medical records. <Cody Evans MD - Last Filed: 12/10/24 07:07> Lab Data Attestation: I reviewed the patient's lab results. <Cody Evans MD - Last Filed: 12/10/24 07:07> Result diagrams: 12/09/24 18:15 12/09/24 18:15 <Rose Retana PA-C - Last Filed: 12/10/24 11:11> Labs: Lab Results 12/09/24 12/09/24 Range/Units 18:15 18:17 WBC 7.5 (4.5-10.0) K/mm3 RBC 4.62 (4.2-5.4) M/mm3 Hgb 14.6 (12.0-15.0) g/dL Hct 44.2 (37.0-47.0) % MCV 95.7 (80-100) fl MCH 31.6 (26-34) pg MCHC 33.0 (32-36) g/dl RDW 11.9 (11.5-14.5) % Plt Count 255 (150-375) k/mm3 MPV 10.4 (7.4-10.4) fl Immature Gran % (Auto) 0.3 (0-0.5) % Neut % (Auto) 57.6 (45.5-73.1) % Lymph % (Auto) 34.6 (18.3-44.2) % [place] % (Auto) 4.6 (2.6-8.5) % Eos % (Auto) 2.5 (0-4.4) % Baso % (Auto) 0.4 (0.2-1.2) % Lymph # (Auto) 2.58 (0.9-3.2) K/mm3 [place] # (Auto) 0.3 (0.1-0.6) K/mm3 Eos # (Auto) 0.2 (0-0.3) K/mm3 Baso # (Auto) 0.0 (0.0-0.1) K/mm3 Abs Immat Gran (auto) 0.02 (0.00-0.031) K/mm3 Absolute Neuts (auto) 4.3 (1.3-6.7) K/mm3 Absolute Nucleated RBC 0.000 (0.0-0.012) K/mm3 Nucleated RBC % 0.0 (0.0-0.2) % Sodium 140 (137-145) mmol/L Potassium 3.9 (3.4-5.0) mmol/L Chloride 107 (98-107) mmol/L Carbon Dioxide 21 L (22-30) mmol/L Anion Gap 12 (4-12) mmol/L BUN 18 H (7-17) mg/dL Creatinine 0.99 (0.7-1.0) mg/dL Estim Creat Clear Calc 54 ml/min Estimated GFR > 60 (59 - ) Glucose 85 (65-110) mg/dL Calcium 9.6 (8.4-10.2) mg/dL Total Bilirubin 0.7 (0.2-1.3) mg/dL AST 25 (14-36) U/L ALT 16 (6-35) U/L Alkaline Phosphatase 84 (38-126) U/L Total Protein 9.0 H (6.3-8.2) g/dL Albumin 4.6 (3.5-5.1) g/dL Lipase 124 (23-300) U/L Urine Color Yellow (Yellow) Urine Appearance Clear (Clear) Urine pH 7.5 (5.0-9.0) Ur Specific [place] 1.015 (1.001-1.035) Urine Protein Negative (Negative) mg/dL Urine Glucose (UA) Negative (Negative) mg/dL Urine Ketones Trace H (Negative) mg/dL Ur Blood (Man) Negative (Negative) Urine Nitrate Negative (Negative) Urine Bilirubin Negative (Negative) Urine Urobilinogen 0.2 (<2.0) mg/dL Leukocyte Esterase Rfl Negative (Negative) DEMETRIUS/UL POC Urine HCG, Qual Negative (Negative) <Rose Retana PA-C - Last Filed: 12/10/24 11:11> Lab Results 12/09/24 12/09/24 Range/Units 18:15 18:17 WBC 7.5 (4.5-10.0) K/mm3 RBC 4.62 (4.2-5.4) M/mm3 Hgb 14.6 (12.0-15.0) g/dL Hct 44.2 (37.0-47.0) % MCV 95.7 (80-100) fl MCH 31.6 (26-34) pg MCHC 33.0 (32-36) g/dl RDW 11.9 (11.5-14.5) % Plt Count 255 (150-375) k/mm3 MPV 10.4 (7.4-10.4) fl Immature Gran % (Auto) 0.3 (0-0.5) % Neut % (Auto) 57.6 (45.5-73.1) % Lymph % (Auto) 34.6 (18.3-44.2) % [place] % (Auto) 4.6 (2.6-8.5) % Eos % (Auto) 2.5 (0-4.4) % Baso % (Auto) 0.4 (0.2-1.2) % Lymph # (Auto) 2.58 (0.9-3.2) K/mm3 [place] # (Auto) 0.3 (0.1-0.6) K/mm3 Eos # (Auto) 0.2 (0-0.3) K/mm3 Baso # (Auto) 0.0 (0.0-0.1) K/mm3 Abs Immat Gran (auto) 0.02 (0.00-0.031) K/mm3 Absolute Neuts (auto) 4.3 (1.3-6.7) K/mm3 Absolute Nucleated RBC 0.000 (0.0-0.012) K/mm3 Nucleated RBC % 0.0 (0.0-0.2) % Sodium 140 (137-145) mmol/L Potassium 3.9 (3.4-5.0) mmol/L Chloride 107 (98-107) mmol/L Carbon Dioxide 21 L (22-30) mmol/L Anion Gap 12 (4-12) mmol/L BUN 18 H (7-17) mg/dL Creatinine 0.99 (0.7-1.0) mg/dL Estim Creat Clear Calc 54 ml/min Estimated GFR > 60 (59 - ) Glucose 85 (65-110) mg/dL Calcium 9.6 (8.4-10.2) mg/dL Total Bilirubin 0.7 (0.2-1.3) mg/dL AST 25 (14-36) U/L ALT 16 (6-35) U/L Alkaline Phosphatase 84 (38-126) U/L Total Protein 9.0 H (6.3-8.2) g/dL Albumin 4.6 (3.5-5.1) g/dL Lipase 124 (23-300) U/L Urine Color Yellow (Yellow) Urine Appearance Clear (Clear) Urine pH 7.5 (5.0-9.0) Ur Specific [place] 1.015 (1.001-1.035) Urine Protein Negative (Negative) mg/dL Urine Glucose (UA) Negative (Negative) mg/dL Urine Ketones Trace H (Negative) mg/dL Ur Blood (Man) Negative (Negative) Urine Nitrate Negative (Negative) Urine Bilirubin Negative (Negative) Urine Urobilinogen 0.2 (<2.0) mg/dL Leukocyte Esterase Rfl Negative (Negative) DEMETRIUS/UL POC Urine HCG, Qual Negative (Negative) <Cody Evans MD - Last Filed: 12/10/24 07:07> Imaging Data Attestation: I personally reviewed and interpreted this imaging study as follows: <Cody Evans MD - Last Filed: 12/10/24 07:07> My impression: Impressions Pelvic/Transvag US 12/09/24 19:37 IMPRESSION: Small cysts seen in both ovaries. Status post surgical removal of the urinary uterus. Abdomen/Pelvis CT 12/09/24 22:14 IMPRESSION: 1. No evidence of appendicitis, diverticulitis or intestinal obstruction. 2. Increased vascularity around the cecum and ascending colon with slight thickening of the wall which may indicate colitis. Inflammatory bowel disease should be considered. Follow-up advised. 3. Bilateral small renal cysts. <Cody Evans MD - Last Filed: 12/10/24 07:07> Radiologist's impression: ITS Impressions Pelvic/Transvag US 12/09/24 19:37 IMPRESSION: Small cysts seen in both ovaries. Status post surgical removal of the urinary uterus. Abdomen/Pelvis CT 12/09/24 22:14 IMPRESSION: 1. No evidence of appendicitis, diverticulitis or intestinal obstruction. 2. Increased vascularity around the cecum and ascending colon with slight thickening of the wall which may indicate colitis. Inflammatory bowel disease should be considered. Follow-up advised. 3. Bilateral small renal cysts. <Rose Retana PA-C - Last Filed: 12/10/24 11:11> ITS Impressions Pelvic/Transvag US 12/09/24 19:37 IMPRESSION: Small cysts seen in both ovaries. Status post surgical removal of the urinary uterus. Abdomen/Pelvis CT 12/09/24 22:14 IMPRESSION: 1. No evidence of appendicitis, diverticulitis or intestinal obstruction. 2. Increased vascularity around the cecum and ascending colon with slight thickening of the wall which may indicate colitis. Inflammatory bowel disease should be considered. Follow-up advised. 3. Bilateral small renal cysts. <Cody Evans MD - Last Filed: 12/10/24 07:07> Critical Care Time Critical Care Time Critical Care Time: No <LARRY Shaw Last Filed: 12/10/24 11:11> Discharge Plan Discharge Clinical Impression: Colitis, Abdominal pain, right lower quadrant <LARRY Shaw Last Filed: 12/10/24 11:11> Patient Disposition: Home <LARRY Shaw Last Filed: 12/10/24 11:11> Condition: Stable <LARRY Shaw Last Filed: 12/10/24 11:11> Instructions: Antibiotic Form, Abdominal Pain (ED), Colitis (ED) <Rose Retana PA-C - Last Filed: 12/10/24 11:11> Additional Instructions: Your CT scan shows signs of colitis in the right side of your abdomen which is consistent with your pain location and symptoms. This could be a number of things such as infectious or inflammatory pathology. Your laboratory studies are all reassuring however and we will treat this with a course of antibiotics for next 10 days as well as pain control medications and nausea control medications and you need to follow-up with a GI doctor on outpatient basis as well your primary care provider outpatient. Provided referrals as above. If the pain worsens or he develops any new symptoms such as inability to tolerate oral intake, bloody diarrhea, fevers, worsening pain or any other concerns please return to the emergency department at that time. <Rose Retana PA-C - Last Filed: 12/10/24 11:11> Patient Language: Chinese <LARRY Shaw Last Filed: 12/10/24 11:11> Prescriptions: New ciprofloxacin HCl 500 mg tablet 500 mg PO Q12H 10 Days Qty: 20 0RF metronidazole 500 mg tablet 500 mg PO BID 10 Days Qty: 20 0RF ondansetron 4 mg tablet,disintegrating 4 mg PO Q8H PRN (Reason: nausea and vomiting) Qty: 20 0RF oxycodone 5 mg tablet 5 mg PO Q8H PRN (Reason: pain) Qty: 10 0RF No Action acetaminophen 325 mg Tablet 650 mg PO DAILY PRN (Reason: Pain) alprazolam 1 mg tablet 1 mg BID PRN (Reason: Anxiety) ondansetron HCl 4 mg tablet 4 mg PO Q6-8H PRN (Reason: Nausea) topiramate 100 mg tablet 100 mg PO TID naproxen 500 mg tablet 500 mg PO BID PRN (Reason: Pain) venlafaxine 150 mg 1 tablet PO HS <Rose Retana PA-C - Last Filed: 12/10/24 11:11> Follow-up/Referrals: Nils,Michael Hernandez MD [Primary Care Provider] - Nik Damico MD [Physician] - 1 Week (Colitis, possible inflammatory bowel) <Rose Retana PA-C - Last Filed: 12/10/24 11:11> Time of Disposition: 23:21 <Rose Retana PA-C - Last Filed: 12/10/24 11:11> 23:21 <Cody Evans MD - Last Filed: 12/10/24 07:07>
[2024-12-09 18:20] LABS: BEDSIDEPREGUCG Negative (Negative)
[2024-12-09 18:25] LABS: Add Urine Microscopic? NO; Appearance Urine Clear (Clear); Basophils Percent Auto 0.4 % (0.2-1.2); Bilirubin Urine Negative (Negative); Blood Urine Negative (Negative); Color Urine Yellow (Yellow); Eosinophils Absolute Auto 0.2 K/mm3 (0-0.3); Eosinophils Percent Auto 2.5 % (0-4.4); Glucose Urine UA Negative (Negative); Hematocrit 44.2 % (37.0-47.0); Hemoglobin 14.6 g/dL (12.0-15.0); Immature Granulocyte Absolute 0.02 K/mm3 (0.00-0.031); Immature Granulocyte Percent A 0.3 % (0-0.5); Ketones Urine Trace mg/dL (Negative); Leukocyte Esterase Ur Negative LEU/UL (Negative); Lymphocytes Absolute Auto 2.58 K/mm3 (0.9-3.2); Lymphocytes Percent Auto 34.6 % (18.3-44.2); Mean Corpuscular Hemoglobin 31.6 pg (26-34); Mean Corpuscular Volume 95.7 fl (80-100); Mean Platelet Volume 10.4 fl (7.4-10.4); Monocytes Absolute Auto 0.3 K/mm3 (0.1-0.6); Monocytes Percent Auto 4.6 % (2.6-8.5); Neutrophils Absolute Auto 4.3 K/mm3 (1.3-6.7); Neutrophils Percent Auto 57.6 % (45.5-73.1); Nitrate Urine Negative (Negative); Platelet Count Result 255 k/mm3 (150-375); Protein Urine Negative (Negative); Red Blood Count 4.62 M/mm3 (4.2-5.4); Red Cell Distribution Width 11.9 % (11.5-14.5); Specific Grav Ur 1.015 (1.001-1.035); Urobilinogen Urine 0.2 mg/dL (<2.0); White Blood Count 7.5 K/mm3 (4.5-10.0); pH Urine 7.5 (5.0-9.0)
[2024-12-09 18:32] LABS: Alanine Aminotransferase 16 U/L (6-35); Albumin Level 4.6 g/dL (3.5-5.1); Alkaline Phosphatase 84 U/L (38-126); Anion Gap 12 mmol/L (4-12); Aspartate Amino Transferase 25 U/L (14-36); Bilirubin,Total 0.7 mg/dL (0.2-1.3); Blood Urea Nitrogen 18 mg/dL (7-17); Calcium 9.6 mg/dL (8.4-10.2); Carbon Dioxide 21 mmol/L (22-30); Chloride 107 mmol/L (98-107); Estimated CRCL calculation 54 ml/min; Estimated Glomerular Filt Rate > 60; Glucose 85 mg/dL (65-110); Lipase 124 U/L (23-300); Potassium 3.9 mmol/L (3.4-5.0); Sodium 140 mmol/L (137-145)
[2024-12-09 20:12] VITALS: BP 120/82; PULSE 67; RESP 17; TEMP 37.1; O2SAT 100
--- OUTSIDE RECORDS SUMMARY | 2024-12-09 21:37 | XMS_ITS | Clinical Summary ---
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 Pulse - - Temperature 36.4 C (97.6 F) 08/01/2021 10:52 AM TAIL END RIDER Respiratory Rate 18 08/01/2021 10:52 AM TAIL END RIDER Oxygen Saturation - - Inhaled Oxygen Concentration - - Weight 68.9 kg (152 lb) 08/01/2021 10:52 AM TAIL END RIDER Height 154.9 cm (5' 1) 08/01/2021 10:52 AM TAIL END RIDER Body Mass Index 28.72 08/01/2021 10:52 AM TAIL END RIDER Plan of Treatment Health Maintenance Due Date Last Done Comments Influenza Vaccine (Season Ended) 2025 Insurance [employer] Care Teams Professor Of Languages Relationship Specialty Start Date End Date Michael Wray MD [address] [place] [address] PCP - General Family Medicine 08/13/21
[2024-12-09] MEDS: ONDANSETRON INJ 4 MG/2 ML VIAL IV PUSH ×2 (22:10→23:26)
[2024-12-09] MEDS: LACTATED RINGERS 1,000 ML 999 ML IV CONT (22:10)
[2024-12-09] MEDS: MORPHINE SULFATE (*CRX) 4 MG/ML INJ IV PUSH (22:10)
[2024-12-09] MEDS: HYDROmorphone HCL INJ (*CRX) 2 MG/ML VIAL 0.5 MG IV PUSH (23:27)
[2024-12-09] MEDS: metroNIDAZOLE 500 MG/ISO 100ML 500 MG/100 ML BAG 100 MG IVPB (23:29)
[2024-12-09] MEDS: CIPROFLOXACIN 400 MG/D5W 200ML 200 ML 200 MG IVPB (23:33)
[2024-12-10 00:30] VITALS: BP 105/83; PULSE 70; RESP 14; O2SAT 100
== END 2024-12-10 00:43 | disposition home or self-care (01) ==
PROVIDERS: Physician Assistant; Emergency Provider Student in an Organized Health Care Education/Training Program; PCP Emergency Medicine
DX: K52.9 Noninfective gastroenteritis and colitis, unspecified (principal); Z90.49 Acquired absence of other specified parts of digestive tract; Z90.710 Acquired absence of both cervix and uterus; N28.1 Cyst of kidney, acquired; N83.202 Unspecified ovarian cyst, left side; N83.201 Unspecified ovarian cyst, right side
CPT/HCPCS: 36415; 74177; 76830; 76856; 80053; 81003; 81025; 83690; 85025; 96361; 96365; 96367; 96375; 96376; 99284; J0744; J1171; J1836; J2270; J2405; J7120; Q9967

== ENCOUNTER 2025-02-17 02:49 | Day surgery (SDC) | payer OTHER, SELFPAY ==
[2025-02-10 13:29] VITALS: BMI 25.5
--- NOTE | 2025-02-10 13:38 | PC.NURSE ---
Report to the Outpatient Waiting Room, entrance under the green pavilion located off [facility], at time _0600_ on date _[id number]_. Planned Procedure Time: _0730_.? Time changes happen often and if your time is changed the preop area will call you the afternoon before. - You and your visitor will be asked to self-screen and do not enter if you have any COVID symptoms. Please call surgeon if you need to reschedule. - A mask is optional within the hospital at this time. Patients may have clear liquids (water, carbonated beverages, clear teas, apple juice) until 3 hours prior to surgery with a maximum of 20 ounces. - No food from midnight until time of surgery and no smoking, or chewing tobacco (or any form of nicotine). No chewing gum, candy or mints. Take only the following medications with a SIP of water on the morning of surgery: ___Acetaminophen if needed and or Alprazolam if needed.____ DO NOT STOP ANY OF YOUR OTHER PRESCRIPTION MEDICATIONS PRIOR TO SURGERY EXCEPT THE FOLLOWING Hold all vitamins and supplements for 3 days per anesthesiologist. Medications to discontinue per physician Patient says is going to stop taking Naproxen until after surgery. Date to take last dose Please no make-up, nail vietnamese, hairspray, perfume, deodorant, or body powder the day of surgery.? No jewelry (including any body piercings) or valuables the day of surgery, leave them at home.? Please take a shower or bath the night before, or the morning of, surgery with an antibacterial soap.? Wear comfortable, loose fitting clothing.? - Jewelry must be removed prior to entering the operating room.? Rings and piercings that are not removed may be cut off. - The hospital will not accept responsibility for valuables.? - Please leave all valuables, including medications, at home the day of surgery. If you are going home after surgery, a licensed deliver driver must drive you home.? - NO public transportation without another adult if you receive anesthesia. - We recommend that an adult stay with you for 24 hours following discharge. - We also recommend that you do not drive, make important decision, drink alcoholic beverages, or take any drugs that were not prescribed by your health care provider for at least 24 hours after your discharge time. Follow any additional instructions given to you from your surgeon. Telephone instructions given to __Anyi___and asked if any additional questions and then verbalized understanding. Patient advised to call surgeon office or pre surgery nurse liaison [phone] if any additional questions.
[2025-02-17] VITALS (9 sets, daily range): BP systolic 104–127; BP diastolic 70–80; PULSE 65–93; RESP 10–20; TEMP 36.8–36.9; O2SAT 97–100
--- OUTSIDE RECORDS SUMMARY | 2025-02-17 02:52 | XMS_ITS | Encounter Summary ---
Author Organization [facility] Address [address] [place] [id number] Care Team Providers Care Sap Pi Architect Name Role Phone Michael Wray MD Primary Care Provider [phone] Encounter Details Date Type Department Care Team (Late st Contact Info) Description 07/18/2022 [employer] Message [facility] Information Services [address] [place] [id number] [facility], [facility] Provider PT NAME CHANGE Social History Tobacco [...] CDT Gender Identity Female 07/18/2022 4:46 AM SOA INTEGRATION ARCHITECT Sexual Orientation Straight 07/18/2022 4: 46 AM SOA INTEGRATION ARCHITECT COVID-19 Exposure Response Date Recorded In the last 10 days, have yo u been in contact with someone who was confirmed or suspected to have Coronavirus/COVID-19? 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
--- OUTSIDE RECORDS SUMMARY | 2025-02-17 02:52 | XMS_ITS | Clinical Summary ---
Author Organization [facility] Address [address] [place] [id number] Phone Care Team Providers Care Counselling Psychologist Name Role Phone Michael Wray MD Primary Care Provider [phone] Allergies Active Allergy Reactions Criticality Noted Date [...] Comments Blood Pressure 134/72 08/01/2021 10:52 AM LOW VOLTAGE TECHNICIAN Pulse - - Temperature 36.4 C (97.6 F) 08/01/2021 10:52 AM LOW VOLTAGE TECHNICIAN Respiratory Rate 18 08/01/2021 10:52 AM LOW VOLTAGE TECHNICIAN Oxygen Saturation - - Inhaled Oxygen Concentration - - Weight 68.9 kg (152 lb) 08/01/2021 10:52 AM LOW VOLTAGE TECHNICIAN Height 154.9 cm (5' 1) 08/01/2021 10:52 AM LOW VOLTAGE TECHNICIAN Body Mass Index 28.72 08/01/2021 10:52 AM LOW VOLTAGE TECHNICIAN Plan of Treatment Health Maintenance Due Date Last Done Comments Influenza Vaccine (#1) 2025 Insurance [employer] [place] [employer] Care Teams Counselling Psychologist Relationship Specialty Start Date End Date Michael Wray MD [address] [place] [address] PCP - General Family Medicine 08/13/21
--- OUTSIDE RECORDS SUMMARY | 2025-02-17 02:52 | XMS_ITS | Clinical Summary ---
Author Organization [facility] Address [address] [place] [address] Care Team Providers Care Auto Mechanic Supervisor Name Role Phone Michael Wray MD Primary Care Provider [phone] Allergies Active Allergy Reactions Criticality Noted Date [...] Encounters Date Type Department Care Team Description 11/23/2024 Travel from Last 3 Months Social History [...] CDT Gender Identity Female 07/18/2022 4:46 AM WANT AD CLERK Sexual Orientation Straight 07/18/2022 4: 46 AM WANT AD CLERK Last Filed Vital Signs Vital Sign Reading [...] 3:36 PM CDT Height 154.9 cm (5' 1) 10/12/2024 3:36 PM CDT Body Mass Index [...] topic Meningococcal Vaccine Aged Out No aurelia carir eligible based on patient's age to complete this topic Pneumococcal Vaccine: Pediatrics (0 to 5 Years) and At-Risk Patients (6 to 49 Years) Aged Out No longer eligible based on patient's age to complete this topic RSV Immunizations Under 20 Months Aged Out No longer eligible based on patient's age to complete this topic Procedures Procedure Name Priority Date/Time Associated Diagnosis Comments VITAMIN D, 25 OH TOTAL Routine 11/23/2024 12:05 AM CDT [facility] WITH LIPID Routine 11/23/2024 12:05 AM CDT [facility] HEMOGLOBIN A1C Routine 11/23/2024 12:05 AM CDT from Last 3 Months Results * (ABNORMAL) [facility] WITH LIPID (11/23/2024 12:05 AM CDT) GLUCOSE 74 70 - 99 MG/DL 11/23/2024 3:47 PM CDT [facility] BUN 9 7 - 18 MG/DL 11/23/2024 3:47 PM CDT [facility] SODIUM S/P/B 138 136 - 145 MMOL/L 11/23/2024 3:47 PM CDT [facility] POTASSIUM S/P/B 3.6 3.5 - 5.1 MMOL/L 11/23/2024 3:47 PM CDT [facility] CHLORIDE S/P/B 111 97 - 115 MMOL/L 11/23/2024 3:47 PM CDT [facility] CO2 17.7(L) 21 - 32 MMOL/L 11/23/2024 3:47 PM CDT [facility] CREATININE S/P/B 0.71 0.55 - 1.02 MG/DL 11/23/2024 3:47 PM CDT [facility] CALCIUM S/P/B 8.4(L) 8.5 - 10.1 MG/DL 11/23/2024 3:47 PM CDT [facility] ALBUMIN S/P/B 3.4 3.4 - 5.0 G/DL 11/23/2024 3:47 PM CDT [facility] TOTAL PROTEIN S/P/B 7.9 6.4 - 8.2 G/DL 11/23/2024 3:47 PM CDT [facility] BILIRUBIN TOTAL S/P/B 0.4 0.2 - 1.2 MG/DL 11/23/2024 3:47 PM CDT [facility] Comment: THIS ASSAY IS NOT RECOMMENDED FOR PATIENTS UNDERGOING TREATMENT WITH ELTROMBOPAG DUE TO THE POTENTIAL FOR FALSELY ELEVATED RESULTS. ALT 29 14 - 55 U/L 11/23/2024 3:47 PM CDT [facility] AST 16 15 - 37 U/L 11/23/2024 3:47 PM CDT [facility] ALKALINE PHOSPHATASE S/P/B 100 50 - 136 U/L 11/23/2024 3:47 PM CDT [facility] A/G RATIO 0.8(L) 1.0 - 2.0 RATIO 11/23/2024 3:47 PM CDT [facility] GFR ESTIMATE >90 >90 ML/MIN/1. 73 M2 11/23/2024 3:47 PM T [facility] Comment: NOTE: eGFR is not calculated for patients <18 years of age or gender unknown. This is an estimated GFR calculation using the new CKD EPI creatinine equation without race and so does not require a correction factor for race. This estimated GFR should not be used for calculating drug doses. CHOLESTEROL 154 <200 MG/DL 11/23/2024 3:47 PM T [facility] TRIGLYCERIDES 38 <150 MG/DL 11/23/2024 3:47 PM T [facility] HDL 52 >40.0 MG/DL 11/23/2024 3:47 PM [facility] LDL (CALCULATED) 94 <100 MG/DL 11/23/2024 3:47 PM T [facility] NON HDL CHOLESTEROL 102 <130 MG/DL 11/23/2024 3:47 PM [facility] CHOL/HDL RATIO 3.0 0.0 - 4.5 11/23/2024 3:47 PM [facility] VLDL CALCULATION 8 5 - 55 MG/DL 11/23/2024 3:47 PM [facility] LIPID INTERPRETATION 11/23/2024 3:47 PM [facility] Comment: NIH CONCENSUS REPORT RECOMMENDATIONS: ADULT CHILD LOW RISK: CHOLESTEROL <200 <170 TRIGLYCERIDE <150 --- HDL >=60 --- LDL <100 <110 BORDERLINE: CHOLESTEROL 200-239 170-199 TRIGLYCERIDE 150-199 --- HDL 40-59 --- LDL 100-159 110-129 HIGH RISK: CHOLESTEROL >=240 >=200 TRIGLYCERIDE >=200 --- HDL <40 --- LDL >=160 >=130 TSH 1.740 0.358 - 3.74 uIU/ML 11/23/2024 3:47 PM [facility] Comment: HIGH DOSES OF BIOTIN MAY INTERFERE WITH THIS TEST RESULT. CORRELATION TO CLINICAL HISTORY AND PRESENTATION RECOMMENDED. WBC 9.54 4.50 - 11.00 x10'3/uL 11/23/2024 10:30 AM CDT [facility] RBC 4.06 4.00 - 5.20 x10'6/uL 11/23/2024 10:30 AM CDT [facility] HGB 13.0 12.0 - 16.0 G/DL 11/23/2024 10:30 AM CDT [facility] HCT 38.2 38.0 - 48.0 % 11/23/2024 10:30 AM CDT [facility] MCV 94.1 80.0 - 100.0 FL 11/23/2024 10:30 AM CDT [facility] MCH 32.0 26.0 - 34.0 PG 11/23/2024 10:30 AM CDT [facility] MCHC 34.0 31.0 - 37.0 G/DL 11/23/2024 10:30 AM CDT [facility] PLT 270 130 - 400 x10'3/uL 11/23/2024 10:30 AM CDT [facility] 11/23/2024 12:0 5 AM CDT Boaz Marcial MD LABORATORY Final Result [facility] [address] [address], [facility] [address] [place] [address], * (ABNORMAL) VITAMIN D, 25 OH TOTAL (11/23/2024 12:05 AM CDT) VITAMIN D 25 HYDROXY S/P/B 20(L) 30 - 100 NG/ML 11/23/2024 5:43 PM CDT [facility] 11/23/2024 12:0 5 AM CDT Boaz Marcial MD LABORATORY Final Result Performing Organization Address City/[facility] Co de Phone Number [facility] [address] [place] [address], [place] [phone] * HEMOGLOBIN A1C (11/23/2024 12:05 AM CDT) HGB A1C 5.1 <5.7 % 11/23/2024 6:18 PM CDT [facility] Comment: ADA GUIDELINES 2010 5.7 TO 6.4% INCREASED RISK OF DIABETES > OR = 6.5% CONSISTENT WITH DIABETES ESTIMATED AVG GLUCOSE 100 mg/dL 11/23/2024 6:18 PM CDT [facility] 11/23/2024 12:0 5 AM CDT Boaz Marcial MD LABORATORY Final Result Performing Organization Address City/[facility]/ZIP Co de Phone Number [facility] [address] [place] [address], [place] [phone] from Last 3 Months Additional Health Concerns Infection Onset Date Last Indicated MRSA Comment:04/11/2020 +MRSA Back wound 04/14/2020 04/14/2020 Insurance [facility] RISK [facility]NAGEMENT [facility] ALLIED Care Teams Auto Mechanic Supervisor Relationship Specialty Start Date End Date Michael Wray MD [address] [place] [address] PCP - General FAMILY PRACTICE 06/02/19
[2025-02-17] MEDS: LACTATED RINGERS 1,000 ML 30 ML IV CONT ×2 (06:50→08:36)
[2025-02-17] MEDS: KETOROLAC 15 MG/ML VIAL (*BKC) IV PUSH (06:50)
--- NOTE | 2025-02-17 06:55 | P.PNAN_ITS ---
Anes - Eval Final PreProcedure Day of Procedure 02/17/25 06:55 Patient weight: normal Heart: regular rate and rhythm Lungs: clear to auscultation Airway: Mallampati scale class II Neurological: alert and oriented Last oral intake: >/= 8 hours ASA classification: II Emergent: no Anesthetic plan: proceed Anesthesia type and monitoring: general ETT and standard monitoring Results Review: All pre-operative results and documents have been reviewed as part of the pre- operative evaluation. Informed Consent: The patient's anesthetic plan and its attendant risks and benefits were discussed with the patient/family/POA. Questions were solicited and answers provided to the satisfaction of the patient/family/POA.
--- NOTE | 2025-02-17 07:40 | PM.IMHP ---
H&P: HPI History of Present Illness Date/Time: 02/17/25 07:40 Chief Complaint: Pelvic pain Narrative: 34-year-old female with chronic right-sided pelvic pain and a right hemorrhagic cyst. We agreed to perform laparoscopic right oophorectomy. She understands risks, benefits, and alternatives. She has completed informed consent process is ready to proceed. The patient understands the details of the procedure. The procedure has been explained in detail. She understands the risks. She understands that injuries may occur that result in hospitalization, more surgery, and severe illness. She understands risk of hemorrhage and infection. She denies any chest pain or shortness of breath. She denies any nausea, vomiting, fever, chills. Review of Systems Review of Systems: All systems reviewed & are unremarkable except as noted in HPI and below Constitutional: Constitutional: Denies chills, Denies fatigue, Denies fever(s) and Denies weakness Eyes: Eyes: Denies blurry vision, Denies change in vision, Denies loss of peripheral vision, Denies loss of vision, Denies other visual disturbances and Denies eye pain ENT: Denies vertigo, Denies dizziness, Denies hearing loss, Denies mouth pain, Denies nasal obstruction, Denies neck mass and Denies neck pain Cardiovascular: Cardiovascular: Denies chest pain, Denies diaphoresis, Denies syncope, Denies leg edema and Denies dyspnea Respiratory: Respiratory: Denies chest congestion, Denies cough, Denies hemoptysis, Denies dyspnea and Denies wheezing Gastrointestinal: Gastrointestinal: Denies abdominal pain, Denies constipation, Denies diarrhea, Denies nausea and Denies vomiting Genitourinary: Genitourinary: Denies hematuria, Denies change in libido, Denies nocturia, Denies genital lesions, Denies flank pain and Denies urinary urgency Musculoskeletal: Musculoskeletal: Denies abnormal gait, Denies back pain, Denies myalgias, Denies arthralgias, Denies joint swelling, Denies muscle weakness and Denies neck pain Integumentary/Breasts: Skin/Breast: Denies swelling, Denies breast pain, Denies breast mass, Denies dry skin, Denies nipple discharge, Denies unusual bruising and Denies jaundice Neurologic: Denies Neuro-related abnormal movements, Denies Abnormal speech present, Denies abnormal gait, Denies behavioral changes, Denies confusion, Denies vertigo, Denies dizziness, Denies syncope, Denies loss of vision, Denies memory loss, Denies convulsions and Denies weakness Psychiatric: Psychiatric: Denies abnormal sleep pattern, Denies behavioral changes, Denies change in libido, Denies confusion, Denies depression, Denies anhedonia and Denies memory loss Endocrine: Endocrine: Reports no additional endocrine complaints, Denies change in libido and Denies fatigue Hematologic/Lymphatic: Hematologic/Lymphatic: Reports no additional hematologic/lymphatic complaints Allergic/Immunologic: Allergic/Immunologic: Reports no additional allergic/immunologic complaints and Denies wheezing PMFSH Past Medical History Medical History (Updated 02/17/25 @ 07:42 by Gomez Carrington MD) Nausea and vomiting in adult Surgical History Surgical History (Updated 12/15/24 @ 11:23 by Ginny Cardona MA) H/O: hysterectomy Hx laparoscopic cholecystectomy 05/15/[address] Yang Social History Social History Smoking status: Never smoker Alcohol intake: never Substance use: never Substance use type: does not use Do You Feel Safe in your Home?: Yes Lack of Transportation: No Lack of Food: Never True Current Housing: I Have Housing Concerned About Future Housing: No Difficulty Paying Gas/Electric Bills: No Difficulty Paying for Meds: No Currently Unemployed: No Education: High School Diploma/GED Difficulty w/ Childcare or Family Care: No Living arrangements: with family Gender identity (if verbalized by the patient): Female Sexual Orientation (if Verbalized by the Patient): Straight or Heterosexual Spiritual care concerns: No Meds Home Medications and Allergies Home Medications ?Medication ?Instructions ?Recorded ?Confirmed ?Type acetaminophen 325 mg tablet 650 mg PO DAILY PRN Pain 10/09/22 02/17/25 History alprazolam 1 mg tablet 1 mg PO BID PRN Anxiety 10/09/22 02/10/25 History naproxen 500 mg tablet 500 mg PO BID PRN Pain 10/09/22 02/10/25 History topiramate 100 mg tablet 100 mg PO TID 10/09/22 02/10/25 History venlafaxine 1 tablet PO HS 05/14/24 02/10/25 History ondansetron 4 mg disintegrating 4 mg PO Q8H PRN nausea and 12/09/24 02/10/25 Rx tablet vomiting #20 tabs cholecalciferol (vitamin D3) 25 1,000 unit PO DAILY 02/10/25 02/10/25 History mcg (1,000 unit) capsule (Vitamin D3) Allergies Allergy/AdvReac Type Severity Reaction Status Date / Time adhesive Allergy Rash Verified 02/17/25 07:24 codeine Allergy Itching Verified 02/17/25 07:24 metoclopramide (From Reglan) Allergy Nausea and Verified 02/17/25 07:24 Vomiting Sulfa (Sulfonamide Allergy Rash Verified 02/17/25 07:24 Antibiotics) Vital Signs Vital Signs - 24 hr 02/17/25 07:26 Temperature 98.4 F Pulse Rate 68 Respiratory Rate 16 Blood Pressure 127/78 Pulse Oximetry 100 Oxygen Delivery Room Air Exam Const: General: cooperative, healthy appearing, comfortable and no acute distress Orientation/consciousness: oriented to person, oriented to place and oriented to time HENMT: Head: normal to inspection Ears: external ears normal Face/Nose/Sinus: Normal external nose present and normal facial exam Face and sinus: normal facial exam Eyes: General: appearance normal, both eyes and all related structures Neck: Neck: normal visual inspection, trachea midline and supple Resp: Auscultation: clear to auscultation bilaterally, no crackles, no rales, no rhonchi and no wheezes Cardio: Rate: regular rate Rhythm: regular rhythm Heart sounds: no click, no murmurs and no rubs GI: GI Palp: No abdominal tenderness, No Soft to palpation, No Tenderness to palpation present (GI) and No Palpable mass present Auscultation: normal bowel sounds Skin: General skin exam: normal color and no rashes or lesions noted Neuro: General: oriented to person, oriented to place and oriented to time Extrem: General: normal to inspection, no joint enlargement, no clubbing, cyanosis or edema, no pedal edema and no calf tenderness Psych: Appearance: grossly normal Mental Status: mental status grossly normal Speech and movement: Normal speech and movement present Assessment and Plan Assessment and plan (1) Pelvic pain: Code(s): R10.2 - Pelvic and perineal pain Status: Acute (2) Ovarian cyst: Code(s): N83.209 - Unspecified ovarian cyst, unspecified side Status: Acute Plan 34-year-old female with chronic right-sided pelvic pain and a right hemorrhagic cyst. We agreed to perform laparoscopic right oophorectomy. She understands risks, benefits, and alternatives. She has completed informed consent process is ready to proceed.
--- NOTE | 2025-02-17 07:42 | WPDHPUPDATE1 ---
History and Physical Update Update Date/Time: 02/17/25 07:42 History and Physical has been reviewed, including an updated exam of the patient. There are NO changes in the patient's condition. Risks, benefits, and alternatives have been discussed and questions answered. Patient agrees to proceed with procedure.
--- NOTE | 2025-02-17 08:22 | S_PTH ---
PATIENT: Anyi Soto LOC: [facility] U#:[id number] AGE/SX: 34/F ROOM: RE02/17/[address]: Gomez Carrington MD : 1990 BED: DIS: 02/17/2025 SPEC #: [id number] RECD: 02/17/25 09:27 STATUS: ISABEL RESophie #: [id number] CHINEDU: 02/17/25 08:[address]: Gomez Carrington DEPT: [facility] Surgical RECD BY: Margarita Rivera ENTERED: 02/17/25 09:27 SP TYPE: Surgical OTHR DR: Michael WrayMD Tissues: A - Ovary Procedures: Hematoxylin and Eosin Stain Gross and Microscopic Level 4
--- NOTE | 2025-02-17 08:36 | W.PM.PROC2 ---
Procedure Note - Detailed Date of Procedure 02/17/25 Pre-op Diagnosis Cyst Right Ovary, pelvic pain Post-op Diagnosis Same Procedure Performed Laparoscopic right oophorectomy Surgeon Gomez Carrington MD Anesthesia General Indications Pelvic pain Findings Normal-appearing bilateral ovaries Description of Procedure The patient was taken to the operating room. She was prepped and draped in the dorsal lithotomy position after induction general anesthesia. A 5 mm incision was made with a scalpel on the abdominal skin in the left upper quadrant of the abdomen. A 5 mm trocar was inserted into the intra-abdominal cavity under direct visualization the scope. In the same fashion a 11 mm left lower quadrant trocar was inserted and a 11 mm infraumbilical trocar was inserted. Right ovary was raised. The infundibulopelvic ligament was cauterized transected with LigaSure cautery. It was placed in an Endo bag and taken out the left quadrant trocar site The pelvis was irrigated. The pneumoperitoneum was reduced. The trocars were removed. Skin was closed with subcuticular 4 micro. The patient's incisions were covered with Dermabond. She was taken recovery room in stable condition. Sponge lap and needle counts were correct x2. Complications No immediate complications Condition Stable Disposition Same day
[2025-02-17] MEDS: ONDANSETRON INJ 4 MG/2 ML VIAL IV PUSH (09:19)
[2025-02-17] MEDS: fentaNYL CITRATE INJ (*CRX) 100 MCG/2 ML VIAL 25 MCG IV PUSH ×2 (09:28→09:31)
[2025-02-17] MEDS: oxyCODONE HCL (*CRX) 5 MG TAB IR PO (10:05)
== END 2025-02-17 10:49 | disposition home or self-care (01) ==
PROVIDERS: PCP Emergency Medicine; Visit Provider Obstetrics & Gynecology
PROC: (CPT 49320; principal; 2025-02-17 07:30)
DX: N80.101 Endometriosis of right ovary, unspecified depth (principal); R10.2 Pelvic and perineal pain
CPT/HCPCS: 58661; 88305; A9270; J1100; J1885; J2003; J2250; J2405; J2704; J3010; J7030; J7120

== ENCOUNTER 2025-05-23 00:13 | Day surgery (SDC) | payer OTHER, SELFPAY ==
[2025-05-20 11:25] VITALS: BMI 26.8
--- OUTSIDE RECORDS SUMMARY | 2025-05-23 00:15 | XMS_ITS | Data Portability ---
Author Organization [facility] Address [address] [place] [address] Care Team Providers Care Medical Art Therapist Name Role Phone MARICEL RODRIGUEZ Primary Care Provider Assessment Encounter Date Assessment Date Assessment LastModified by Organization Details LastModified Time 02/15/2025 02/15/2025 Annual gynecological exam performed. Patient will come back in a year unless there are new symptoms. [email or web address] Not available 02/15/2025 13:59:04 Plan of Treatment Reminders Order Date Submit Date Provider Last Modified By Organization Details Last Modified Time Details Appointments None recorded. Lab pap, IG + HR HPV - HPV regardless but if HPV is positive need subtyping 16,18/45 2024 025 [facility] (Lab), [address], [place], [address], 16:44:49 Referral None recorded. Procedures None recorded. Surgeries oophorectom y (SURG) [address] [facility], [address], [place], [address], 09:46:06 Imaging US, transvagina l 2024 025 [email or web address] [facility], [address], [address], [place], [address], 23:13:46 Medication Orders hydrocodone 5 mg-acetamin ophen 325 mg tablet 2024 025 [facility][id number], [address], [place], [address], 16:05:19 Patient TargetsNo targets recorded. Patient InstructionsNo instructions recorded. Reason for Referral None Reported. Results Created Date Observation Date Name Description Value Unit Range Abnormal Flag Note LastModifiedBy Organization Detail LastModifiedTime 02/16/2002/15/2025 IMAGE GUIDE D PAP AND HPV REGAR DLESS image guided Pap, HPV regardless of Pap result SEE RESULT S BELOW CASE REPOR T: Cytol ogy Gynec ologi dina Repor t Case: [id number] Autho magdy escobar Provi daiana: Cris han, Rose , ANP, PRODUCER ASSISTANT Colle cted: 02/15 1344 Order ing Locat ion: [place] Patho log[facility] Recei deja: 02/16 0216 First Crystale n: Kim Payne, CT Speci men: Kali andrews Pap - Image d, Vagin a STATE MENT OF ADEQU ACY: Satis facto ry for evalu ation ----- ----- ----- ----- ----- ----- ----- ----- ----- ----- ----- ----- ----- ----- ----- ----- ----- ---- FINAL DIAGN OSIS: Negat dominic for Intra epith elial Gagandeep walsh or Holden daniel (NIL) . Elect erasmo gibson by Kim Payne, CT on 025 at 1541 CDT ----- ----- ----- ----- ----- ----- ----- ----- ----- ----- ----- ----- ----- ----- ----- ----- ----- ---- HPV RESUL TS: HPV mRNA E6/E7 : No HPV mRNA Detec iris NOTE: This high risk HPV mRNA assay detec ts fourt een high- risk HPV types (16, 18, 31, 33, 35, 39, 45, 51, 52, 56, 58, 59, 66, 68) witho ut diffe renti ation . COMME NT: This speci men was revie wed by a Cytot echno logis t and/o r Patho logis t (as indic ated in this repor t) after evalu ation using the Thinp rep Imagi ng Syste m. CLINI DINA INFOR MATIO N: Menst rual Statu s: LMP (if appli cable ): Clini dina Histo ry/Pr eviou s Pap: Type of Neopl jamshid (if appli cable ): Signi fican t Clini dina Findi ngs: Other Histo ry: Hormo fady (if appli cable ): PAP EDUCA STACY L NOTE: The Pap Test is a scree juliana test with an inher ent false negat dominic rate. Liqui d-bas ed sampl ing may decre ase, but will not elimi angélica, false negat dominic resul ts. A negat dominic resul t does not precl ude the prese nce and/o r devel opmen t of disea se, since the prese nce of abnor mal cells in the sampl e depen ds on the locat ion of the lesio n and sampl ing techn ique. Amalia nued regul ar scree juliana is the best metho d of cance r preve ntion . If repor iris cytol ogic findi ng do not corre late with physi dina and/o r histo rical findi ngs, furth er inves tigat ion is recom flynn d, as clini chuck munoz nted. Not Available [facility] (Lab) [address], [place], [address], 02/17/2025 16:44:49 02/04/20 25 02/03/2025 US, clarence adam No observ ation record ed. [email or web address] Linda [address], [place], [address], 02/03/2025 16:07:49 02/04/20 25 02/03/2025 US, trans vagin al No observ ation record ed. [email or web address] Carmi [address], [place], [address], 02/03/2025 18:07:00 Result Notes None recorded. Problems Name Problem SNOMED Code Status Onset Date Resolution Date Notes Provider Name and Address Organization Details Recorded Time Migraine 90623998 Active 2022 Allyn schmidt [facility] 3 16:56:24 Mixed anxiety and depressive disorder 318096264 Active 2022 Allyn schmidt [facility] 16:56:38 Problem Notes None recorded. Procedures Surgical History Date Name Laterality Status Provider Name and Address Organization Details Recorded Time 02/18/20 25 OOPHORECTOMY (SURG) completed Meenu Martinez [facility] 04/12/2025 11:48:55 05/14/20 24 Date of Last Mammogram completed Quynh Mena [facility] 02/09/2025 15:10:51 10/23/19 23 ROBOTIC ASSISTED HYSTERECTOMY WITH SALPINGECTOMY (SURG) completed Natalia Storm [facility] 10/23/2022 10:32:32 07/14/19 20 termination of completed Allyn Zimmerman [facility] 06/30/2023 16:58:54 07/14/19 15 Endometrial Ablation completed Allyn Zimmerman [facility] 06/30/2023 16:58:35 07/14/19 13 extraction of wisdom tooth completed Allynhuy Zimmerman [facility] 09/16/2023 17:08:45 12/02/19 12 [facility]2023 16:58:31 Imaging Results None recorded. Procedure Notes None recorded. Medical Equipment None Reported. Allergies Allergen ID Allergen Name Allergen Category Reaction Reaction Severity Criticality Documentation Date Start Date Code Code System Note Provider Name and Address Organization Details Recorded Time Bactrim medicatio n rash Not available Not available 08/12/2022 56684 9 RxNorm Jennifer [facility] 3 14:39:20 52595 Reglan medicatio n nausea Not available Not available 08/12/2022 9230 RxNorm [facility] 3 14:39:20 02140 Substance with sulfonami de structure and antibacte rial mechanism of action (substanc e) medicatio n Not available Not available Not available 08/12/2022 09214 8003 SNOMED [facility] 3 15:05:41 89065 adhesive environme nt,medica tion Not available Not available Not available 08/12/2022 [facility] 3 15:05:49 Medications Name Sig Start [...] completed Not Available Not Available Not Available metronidazo le 500 mg tablet TAKE 1 TABLET BY MOUTH TWICE A DAY FOR 10 DAYS 01/31 completed Not Available Not Available Not Available ciprofloxac in 500 mg tablet TAKE 1 TABLET BY MOUTH EVERY 12 HOURS FOR 10 DAYS 01/31 completed Not Available Not Available Not Available ketorolac 10 mg tablet 08/12 completed Not Available Not Available Not Available oxycodone-a cetaminophe n 5 mg-325 mg tablet 02/15 completed Not Available Not Available Not Available [...] Available ondansetron 4 mg disintegrat ing tablet 2024 active Not Available Not Available Not Avai lable Xanax 1 mg tablet Take 1 tablet as needed by oral route. active Not Available Not Available No t Available naproxen 500 mg tablet 06/30 completed Not Available Not Available Not Available Topamax 100 mg tablet Take 1 tablet 3 times a day by oral route. active Not Available Not Available No t Available oxycodone 5 mg tablet TAKE 1 TABLET BY MOUTH EVERY 8 HOURS NEEDED FOR PAIN 01/31 completed Not Available Not Available Not Available Wellbutrin 08/12 completed Not Available Not Available Not Available Vitals Date Recorded Body height Provider Name an d Address Organization Details Last Updated DateTime 02/09/2025 152.4 cm Quynh Mena [facility] 02/09/2025 15:10:19 Date Recorded Body height Body mass index (BMI) Body weight Systolic And Diastolic Provider Name and Address Organization Details Last Updated DateTime 02/15/2025 152.4 cm 26.8 kg/m2 79343.87 g 126/84 mm[Hg] Phyllis Iris [facility] 02/15/2025 14:02:46 Date Recorded Body height Body mass index (BMI) Body weight Systolic And Diastolic Provider Name and Address Organization Details Last Updated DateTime 02/24/2025 152.4 cm 28.3 kg/m2 57556.89 g 133/85 mm[Hg] Quynh Rajesh [facility] 02/24/2025 15:35:31 Social History Question Answer Notes LastModified by Organizat ion Details LastModified Time Tobacco Smoking Status Never Smoker Ayla Jackson roxana, [facility] 06/30/2023 16:38:14 Are You Blind Or [...] Or The Highest Degree You Have Received? [id number] Information not available 08/12/2022 Are There Any [...] Have Difficulty Walking Or Climbing Stairs? No [email or web address] Information not available 06/30/2023 Sex: Unknown Functional Status Question Answer Note LastModified by Organizat ion Details LastModified Time Do you use any illicit or recreational drugs? No Information not available 08/12/2022 What is your level of alcohol consumption? None Information not available 08/12/2022 Are you able to walk independently without assistance or assistive devices? [email or web address] Information not available 08/12/2022 Are you able to care for yourself independently? 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 No [email or web address] Information not available 06/30/2023 What is your exercise level? Occasional Information not available 08/12/2022 Mental Status Question Answer Note LastModified by Organization D etails LastModified Time Do you feel stressed (tense, restless, nervous, or anxious, or unable to sleep at night)? [id number] Information not available 08/12/2022 Family History Relationship Description Onset Age of this Age Resolved Age Notes LastModified by Organization Details LastModified Time Mother Heart disease Not available 06/30 16:55:51 Maternal Grandfather Heart disease [email or web address] Not available 06/30 16:55:51 Brother Heart disease [email or web address] Not available 06/30 16:55:51 Medical History Condition [...] Abnormal Pap N Date of Last Mammogram 05/14/2024 Date of LMP 09/23/2022 On BCP's at [...] Diagnosis SNOMED-CT Code Diagnosis ICD10 Code Diagnosis IMO Codes Diagnosis Note [id number] Gomez Carrington MD [facility] [address] [address] 08/12/2022 14:24:39 08/12/2022 17:09:58 Pain in pelvis 22810745 R10.2 this patient is a 31-year-ol d [...] surgery for endometrio sis at that time. [id number] Gomez Carrington MD [facility] [address] [address] 08/15/2022 12:10:39 08/15/2022 13:07:48 Cyst of right ovary 3798187900 [id number] N83.291 [id number] Gomez Carrington MD [facility] [address] [address] 08/17/2022 12:19:17 08/19/2022 11:47:19 Female sterilization 80646795 Z30.2 Pain in pelvis 68492971 R10.2 Endometrio sis of pelvis 06824934 N80.30 this patient is a 31-year-ol d [...] . We made decision to Perform surgery. [id number] Gomez Carrington MD [facility] [address],[place] [address] 10/11/2022 15:33:47 10/23/2022 14:38:37 Pain in pelvis 73412335 R10.2 Endometrio sis of pelvis 21972134 N80.30 32-year-ol d female with pelvic pain and endometrio sis. We have agreed to perform robotic assisted hysterecto my with bilateral Salpingect allyssa. she understand s risk, benefits, and alternativ es. She has completed the informed consent process is ready to proceed. [id number] Gomez Carrington MD [facility] [address],[place] [address] 10/23/2022 10:08:58 10/23/2022 10:10:20 [id number] Gomez Carrington MD [facility] [address],[place] [address] 10/26/2022 11:44:06 10/28/2022 13:16:33 Postoperative pain 880977145 G89.18 42-old female presents for postop follow-up. She has no complaints . She still continues to have some postoperat dominic pain. Her incisions are clean dry and intact. Her recovery is normal. She will follow-up [id number] Gomez Carrington MD [facility] [address],[place] [address] 06/30/2023 16:38:05 07/01/2023 08:48:45 Pain in pelvis 02541763 R10.2 32-year-ol d female who is in [...] will return for worsening or persistent pain. [id number] Gomez Carrington MD [facility] [address] [address] 06/30/2023 17:24:46 07/01/2023 08:50:28 Cyst of right ovary 3344096428 [id number] N83.291 [id number] HERIBERTO Zamudio [facility] [address] [address] 09/09/2023 14:46:10 09/09/2023 16:32:44 Pain in pelvis 73279623 R10.2 This patient is a 32 -year-old [...] uprofen for painprecau tions reviewed Abdominal pain 30017082 R10.9 [id number] Gomez Carrington MD [facility] [address] [address] 09/11/2023 10:09:37 09/11/2023 10:58:44 Pain in pelvis 80671041 R10.2 32-year-ol d female who is in [...] will return for worsening or persistent pain. [id number] Gomez Carrington MD [facility] [address] [address] 09/16/2023 15:55:31 09/17/2023 05:57:35 Pain in pelvis 63735166 R10.2 This patient is a 33-year-ol d [...] right oophorecto my. Or bilateral oophorecto my. [id number] Gomez Carrington MD [facility] [address],[place] [address] 04/28/2024 16:55:41 04/28/2024 17:48:19 Breast lump 48427735 N63.0 33-year-ol d female with breast lump that is likely fibrocysti c change that is pronounced in a specific area. To image the breast. She will return after imaging to determine treatment plan. Spent over 20 minutes on the patient's care in total. [id number] Gomez Carrington MD [facility] [address],[place] [address] 10/23/2024 11:52:56 10/23/2024 13:06:06 Pain in pelvis 72125115 R10.2 To obtain pelvic ultrasound and to return to see me. I spent over 20 minutes on the patient's care in total. Cyst of ovary 35179214 N 83.209 [id number] Gomez Carrington MD [facility] [address],[place] [address] 10/29/2024 09:37:55 10/29/2024 10:32:24 Pain in pelvis 13637925 R10.2 [id number] To obtain pelvic ultrasound and to return to see me. I spent over 20 minutes on the patient's care in total. [id number] Gomez Carrington MD [facility] [address],[place] [address] 11/15/2024 16:06:10 11/16/2024 06:20:05 Pain in pelvis 26619746 R10.2 [id number] This patient is a 34-year-ol d female [...] 20 minutes on her care in total. [id number] Gomez Carrington MD [facility] [address] [address] 12/21/2024 10:45:04 12/21/2024 11:30:31 Pain in pelvis 03514881 R10.2 N83.201 [id number] This patient is a 34-year-ol d female [...] 20 minutes on her care in total. [id number] Gomez Carrington MD [facility] [address] [address] 01/31/2025 14:10:03 01/31/2025 23:38:11 Pain in pelvis 70515498 R10.2 [id number] This patient is a 34-year-ol d female presents for follow up on pelvic pain. Has a history of endometrio sis. Has history of hysterecto my. . She will follow up with me after the ultrasound . I spent 20 minutes on her care in total. We agreed to pelvic [id number] Gomez Carrington MD [facility] [address] [address] 02/03/2025 12:16:21 02/03/2025 13:23:10 Cyst of ovary 51193852 N83.291 [id number] Gomez Carrington MD [facility] [address] [address] 02/09/2025 14:56:15 02/09/2025 16:00:49 Cyst of right ovary 7835382963 3246871 N83.201 [id number] this patient is a 34-year-ol d female presents for ultrasound follow-up. She has a persistent painful right ovarian cyst. It appears hemorrhagi c. It continues to hurt. She would like definitive treatment of the right ovary. We agreed to laparoscop ic right oophorecto my. She is status post hysterecto my. Spent over 20 minutes on her care in total. The patient understand s the procedure. The procedure was described to the patient in great detail. the patient also understand s the risks. The risks were also explained in detail. She understand s that injuries May occur during surgery. She understand s these injuries can result in hospitaliz ation, more surgery, and severe illness. She understand s there is risk of hemorrhage and infection. [id number] ROES GARSIA NP [facility] [address],[facility] [place] [address] 02/15/2025 13:46:07 02/15/2025 14:39:41 Well woman health examination 126591047 Z01.419 [id number] Annual gynecologi dina exam performed. Patient will come back in a year unless there are new symptoms. Suggest Calcium with Vitamin D if not eating in diet. Patient advised to get annual flu shot. Recommend yearly physicals and perform monthly breast exams. Genetic testing is available for patients with family history of cancer. Engage in safe sexual practices, use condoms. Encouraged to have daily exercise. Avoid tobacco and illicit drugs, moderation of alcohol. If BMI greater than 25 dietary consult advised. If you have any questions please call or email. Pap smear- pap/ HPV testing off vaginal cuff laboratory evaluation - PCP STI testing - declined [id number] Gomez Carrington MD [facility] [address] [address] 02/17/2025 08:41:31 02/18/2025 09:02:01 [id number] Gomez Carrington MD [facility] [address],[facility] [place] [address] 02/24/2025 14:42:16 02/24/2025 16:07:44 Postoperative pain 215899780 G89.18 [id number] This patient is a 34-year-ol d female who is 1 week postop from a laparoscop ic right oophorecto my. She continues to have some pain that will require narcotic pain medication . Otherwise she is doing well. Incisions are clean dry and intact. We reviewed pathology today. Health Concerns Section Related Observation LastModified by Organization Detai ls LastModified Time None Recorded Concern Status LastModified by Organization Details LastModified Time None Recorded Advance Directives Directive None Recorded Payers Insurance Date Sequence Insurance Name Policy Number Policy Zavala Covered Member ID Zavala Member ID Guarantor Name 02/15/2025 1 [facility] [id number] Derek Soto [id number] Anyi Soto 10/01/2023 1 [place] [id number] Derek Soto [id number] Anyi Soto 10/02/2023 1 [employer] (PPO) Derek Soto [id number] Anyi Soto Notes Date Note Type Note Provider Name and Address Organization Details Recorded Time 5 text/html this patient is a 34-year-old female presents for ultrasound follow-up. She has a persistent painful right ovarian cyst. It appears hemorrhagic. It continues to hurt. She would like definitive treatment of the right ovary. We agreed to laparoscopic right oophorectomy. She is status post hysterectomy. Spent over 20 minutes on her care in total. The patient understands the procedure. The procedure was described to the patient in great detail. the patient also understands the risks. The risks were also explained in detail. She understands that injuries May occur during surgery. She understands these injuries can result in hospitalization, more surgery, and severe illness. She understands there is risk of hemorrhage and infection. Gomez Carrington MD [address], [place], [address], [facility] 02/09/2025 15:46:07 5 text/html Annual GYNReported by PatientGenitourinary symptomsFor urinary symptoms, patient reportsno hematuriaandno incontinence. For vulva, patient reportsno genital lesion. For vagina, patient reportsnormal vaginal discharge.Breast symptomsFor breast, patient reportsno breast pain,no breast lump, andno nipple discharge.Endocrine symptomsFor sexual complaints, patient reportsno sexual complaints,no pain during intercourse, andnormal libido. For menopausal symptoms, patient reportsno menopausal symptomsandnormal vaginal lubrication.Psychological symptomsFor psychological symptoms, patient reportsno depression,no anxiety, andno pmdd.Preventative measuresFor preventive measures, patient reportsencourage self breast examination,encourage regular exercise,encourage no tobacco use, andencourage regular mammograms starting age 40. Patient presents for annual well woman exam.HX hysterectomy w/ bilateral salpingectomy in 2022 due to endometriosis.Patient reports that she is scheduled for right oophorectomy with Dr. Carrington 02/17/25 due to persistent, painful right ovarian cysts.Patient denies additional questions or concerns. Phyllis Simmons roxana, [facility] 02/15/2025 14:39:12 5 text/html This patient is a 34-year-old female who is 1 week postop from a laparoscopic right oophorectomy. She continues to have some pain that will require narcotic pain medication. Otherwise she is doing well. Incisions are clean dry and intact. We reviewed pathology today. Gomez Carrington MD [address], [place], [address], [facility] 02/24/2025 16:05:40 OBGyn Episode Ob Episode Information Episode Created Date Number of Fetuses Patient Bloodtype Patient rh Status Prepregnancy Weight lbs Domestic Partner Domestic Partner Phone Father Name Drawbridge Operator Status 08/12/19 23 1 CLOSED Fetus Data First Name Last Name Admitted to NICU Weight (g) Sex Living Outcome Pediatric Complications Fetus ID Race Codes Race Delivery Type M Full Term [id number] Primary Drake Calculation Initial Drake Date Initial [...] Domestic Partner Domestic Partner Phone Father Name Drawbridge Operator Status 08/12/19 23 1 CLOSED Fetus Data First Name Last Name Admitted to NICU Weight (g) Sex Living Outcome Pediatric Complications Fetus ID Race Codes Race Delivery Type , Induced [id number] Drake Calculation Initial Drake Date Initial Exam [...]
[2025-05-23 11:04] VITALS: BP 117/85; PULSE 89; RESP 20; TEMP 35.9; O2SAT 100; BMI 27.0
[2025-05-23] MEDS: LACTATED RINGERS 1,000 ML 150 ML IV CONT (11:30)
--- NOTE | 2025-05-23 11:39 | WPDANESEPPF ---
Anes - Initial Pre Proc Eval Procedure: Operation Date: 05/23/25 14:30 Proposed Procedures p Diagnostic Colonoscopy - Silas Gasca MD Date/Time: 05/23/25 11:39 Surgeon: Silas Gasca MD Pre Op Diagnosis: Noninfective gastroenteritis and colitis, unspecif Patient Data Age: 34 Gender: F Height: 1.55 m Weight: 64.9 kg Last Vital Signs Temp 35.9 C L 05/23/25 11:04 Pulse 89 05/23/25 11:04 Resp 20 05/23/25 11:04 BP 117/85 05/23/25 11:04 Pulse Ox 100 05/23/25 11:04 O2 Del Method Room Air 05/23/25 11:04 Allergies Allergy/AdvReac Type Severity Reaction Status Date / Time adhesive Allergy Rash Verified 05/23/25 11:03 codeine Allergy Itching Verified 05/23/25 11:03 metoclopramide (From Reglan) Allergy Nausea and Verified 05/23/25 11:03 Vomiting Sulfa (Sulfonamide Allergy Rash Verified 05/23/25 11:03 Antibiotics) Home Medications ?Medication ?Instructions ?Recorded ?Confirmed ?Type acetaminophen 325 mg tablet 650 mg PO DAILY PRN Pain 10/09/22 05/20/25 History alprazolam 1 mg tablet 1 mg PO BID PRN Anxiety 10/09/22 05/20/25 History naproxen 500 mg tablet 500 mg PO BID PRN Pain 10/09/22 05/20/25 History topiramate 100 mg tablet 100 mg PO TID 10/09/22 05/23/25 History venlafaxine 1 tablet PO HS 05/14/24 05/23/25 History ondansetron 4 mg disintegrating 4 mg PO Q8H PRN nausea and 12/09/24 05/20/25 Rx tablet vomiting #20 tabs cholecalciferol (vitamin D3) 25 1,000 unit PO DAILY 02/10/25 05/23/25 History mcg (1,000 unit) capsule (Vitamin D3) hydrocodone 5 mg-acetaminophen 325 1 - 2 tablet PO Q6H PRN pain #14 02/17/25 05/20/25 Rx mg tablet tabs Patient hx anesthesia problems: none Family hx anesthesia problems: none Results Review: All pre-operative results and documents have been reviewed as part of the pre-operative evaluation. [facility] Past Medical History Medical History Nausea and vomiting in adult Surgical History Surgical History H/O: hysterectomy Hx laparoscopic cholecystectomy 05/15/[address] Yang Social History Social History Alcohol intake: never Substance use: never Substance use type: does not use Do You Feel Safe in your Home?: Yes Lack of Transportation: No Lack of Food: Never True Current Housing: I Have Housing Concerned About Future Housing: No Difficulty Paying Gas/Electric Bills: No Difficulty Paying for Meds: No Currently Unemployed: No Education: High School Diploma/GED Difficulty w/ Childcare or Family Care: No Living arrangements: with family Gender identity (if verbalized by the patient): Female Sexual Orientation (if Verbalized by the Patient): Straight or Heterosexual Spiritual care concerns: No Anes - Eval Final PreProcedure Day of Procedure 05/23/25 11:39 Patient weight: overweight Heart: regular rate and rhythm Lungs: clear to auscultation Airway: Mallampati scale class II Neurological: alert and oriented Last oral intake: >/= 8 hours ASA classification: II Emergent: no Anesthetic plan: proceed Anesthesia type and monitoring: general GIVS and standard monitoring Results Review: All pre-operative results and documents have been reviewed as part of the pre-operative evaluation. Informed Consent: The patient's anesthetic plan and its attendant risks and benefits were discussed with the patient/family/POA. Questions were solicited and answers provided to the satisfaction of the patient/family/POA.
--- NOTE | 2025-05-23 11:40 | PM.HPGS ---
History of Present Illness History of Present Illness Consent: Risks, benefits, and alternatives have been discussed and questions answered. Patient agrees to proceed with procedure. Chief complaint: Noninfective gastroenteritis and colitis, unspecif Narrative: Anyi Soto is a 34 year old female here for first colonoscopy, had colitis earlier this year treated with abx Review of Systems Review of Systems: All systems reviewed & are unremarkable except as noted in HPI and below PMFSH Past Medical History Medical History (Updated 05/23/25 @ 11:41 by Silas Gasca MD) History of colitis Nausea and vomiting in adult Surgical History Surgical History H/O: hysterectomy Hx laparoscopic cholecystectomy 05/15/[address] Yang Social History Social History Alcohol intake: never Substance use: never Substance use type: does not use Do You Feel Safe in your Home?: Yes Lack of Transportation: No Lack of Food: Never True Current Housing: I Have Housing Concerned About Future Housing: No Difficulty Paying Gas/Electric Bills: No Difficulty Paying for Meds: No Currently Unemployed: No Education: High School Diploma/GED Difficulty w/ Childcare or Family Care: No Living arrangements: with family Gender identity (if verbalized by the patient): Female Sexual Orientation (if Verbalized by the Patient): Straight or Heterosexual Spiritual care concerns: No Meds Home Medications and Allergies Home Medications ?Medication ?Instructions ?Recorded ?Confirmed ?Type acetaminophen 325 mg tablet 650 mg PO DAILY PRN Pain 10/09/22 05/20/25 History alprazolam 1 mg tablet 1 mg PO BID PRN Anxiety 10/09/22 05/20/25 History naproxen 500 mg tablet 500 mg PO BID PRN Pain 10/09/22 05/20/25 History topiramate 100 mg tablet 100 mg PO TID 10/09/22 05/23/25 History venlafaxine 1 tablet PO HS 05/14/24 05/23/25 History ondansetron 4 mg disintegrating 4 mg PO Q8H PRN nausea and 12/09/24 05/20/25 Rx tablet vomiting #20 tabs cholecalciferol (vitamin D3) 25 1,000 unit PO DAILY 02/10/25 05/23/25 History mcg (1,000 unit) capsule (Vitamin D3) hydrocodone 5 mg-acetaminophen 325 1 - 2 tablet PO Q6H PRN pain #14 02/17/25 05/20/25 Rx mg tablet tabs Allergies Allergy/AdvReac Type Severity Reaction Status Date / Time adhesive Allergy Rash Verified 05/23/25 11:03 codeine Allergy Itching Verified 05/23/25 11:03 metoclopramide (From Reglan) Allergy Nausea and Verified 05/23/25 11:03 Vomiting Sulfa (Sulfonamide Allergy Rash Verified 05/23/25 11:03 Antibiotics) Vital Signs Vital Signs - 24 hr 05/23/25 11:04 Temperature 96.7 F L Pulse Rate 89 Respiratory Rate 20 Blood Pressure 117/85 Pulse Oximetry 100 Oxygen Delivery Room Air Exam Const: General: comfortable and no acute distress HENMT: Face/Nose/Sinus: Normal nares present Eyes: General: appearance normal, both eyes and all related structures Neck: Neck: no JVD Resp: Auscultation: clear to auscultation bilaterally Cardio: Rate: regular rate Rhythm: regular rhythm GI: Inspection: non-distended GI Palp: Yes Soft to palpation Skin: General skin exam: normal color Extrem: General: normal to inspection Psych: Mental Status: mental status grossly normal Assessment and Plan Assessment and plan (1) History of colitis: Code(s): Z87.19 - Personal history of other diseases of the digestive system Status: Acute Assessment and Plan: colonoscopy
[2025-05-23 11:54] VITALS: BP 100/57; PULSE 91; RESP 20; O2SAT 100
[2025-05-23 12:04] VITALS: BP 84/47; PULSE 77; RESP 20; O2SAT 100
[2025-05-23 12:14] VITALS: BP 95/69; PULSE 70; RESP 17; O2SAT 100
[2025-05-23 12:20] VITALS: BP 101/71
== END 2025-05-23 12:31 | disposition home or self-care (01) ==
PROVIDERS: PCP Emergency Medicine; Referring Provider Internal Medicine Gastroenterology; Visit Provider Internal Medicine Gastroenterology
PROC: 0DJD8ZZ Inspection of Lower Intestinal Tract, Via Natural or Artificial Opening Endoscopic (ICD-10-PCS; CPT 45378; principal; 2025-05-23 14:30)
DX: Z09 Encounter for follow-up examination after completed treatment for conditions other than malignant neoplasm (principal); K57.30 Diverticulosis of large intestine without perforation or abscess without bleeding; K64.8 Other hemorrhoids; Z79.1 Long term (current) use of non-steroidal anti-inflammatories (NSAID); Z79.891 Long term (current) use of opiate analgesic; Z98.890 Other specified postprocedural states; Z90.49 Acquired absence of other specified parts of digestive tract; Z87.19 Personal history of other diseases of the digestive system
CPT/HCPCS: 45378; J2704; J7120